=== PATIENT | female | born 1965 | race Caucasian/White ===

== ENCOUNTER 2019-02-26 19:41 | Inpatient (IN) | payer OTHER, SELFPAY ==
[2019-02-26 19:42] VITALS: BP 149/99; PULSE 60; RESP 20; TEMP 36.6; O2SAT 100
--- NOTE | 2019-02-26 21:12 | ED.VISSUMM ---
- ER Visit Summary Date of Service: 02/26/19 Chief Complaint: Fall with left hip pain History of Present Illness: The patient is a 53 F history of diabetes. Patient states she was walking down carpeted steps slipped fell injuring her left hip. Denies any other injuries. No prior hip history or surgery. Denies hitting her head. No LOC. Physical Examination: White female complaint pain vital signs are stable afebrile. H EENT exam atraumatic. Pupils round reactive light. Nontender. C-spine nontender. Trachea midline. Lungs clear to auscultation bilaterally. Heart regular rhythm no murmur. Chest wall nontender. Abdomen soft nontender. Back nontender. Pelvic girdle intact. Left hip pain on palpation. Decreased range of motion due to pain. Femur lower leg knee ankle foot nontender neurovascular intact no deformity. Normal DP pulse. Able to wiggle her toes. Normal touch sensation. Right lower extremity both upper extremities are nontender no deformity. Neurologically she is awake alert with no focal motor deficits. Test Results: Pelvis and left hip x-rays read by myself shows acute left hip fracture. Preop labs showed a normal CBC with a white count 8. Hemoglobin 14. Chemistries unremarkable normal BUN of 12 creatinine 0.9. Patient was typed and screened. Emergency Department Course and Treatment: Patient treated with IV morphine and Zofran. Fall with either hip contusion versus fracture or dislocation. Treatment Plan: I spoke with Dr. Light of orthopedics. And also Dr. Pate the hospitalist and he will admit the patient. Disposition: admission Impression: Acute fall Acute left hip fracture This note was generated with Invisible dictation software. It may contain incorrect words, spelling, and punctuation that were not noted in review of the chart prior to signing ED Disposition - Plan for ED Patient: Referrals: Felix Mccray MD [Primary Care Provider] -
[2019-02-26 21:32] VITALS: BP 163/116
[2019-02-26] MEDS: morphine 8 MG/ML Syringe IV (21:33)
[2019-02-26] MEDS: Ondansetron 4 MG/2 ML Vial IV (21:33)
--- NOTE | 2019-02-26 21:48 | RAD_ITS ---
STUDY: X-RAY - PELVIS AND LEFT HIP REASON FOR EXAM: Female, 53 years old. Fall today. Left hip pain. TECHNIQUE: views of the pelvis and hip. COMPARISON: None. FINDINGS: There is a non-specific bowel gas pattern. Normal visualized soft tissue structures. There is evidence of L5-S1 fusion. Normal bilateral iliac wings, sacroiliac joints and visualized sacrum. Normal bilateral superior and inferior pubic rami. Normal pubic symphysis. Normal bilateral ischial tuberosities. There is a intertrochanteric fracture with slight cephalad displacement of the femoral shaft. The femoral head remains in normal alignment with the acetabulum. Normal left acetabulum. There is mild articular joint space narrowing of the left hip. RAD/HIP, UNI W/ Pelvis 2-3 Views IMPRESSION: Mildly displaced intratrochanteric fracture of the left hip. Electronically Signed: Gregorio Quinn DO at 22:35 EST Tel [phone], Service support ,
[2019-02-26 22:12] LABS: Hematocrit 42.4 % (37-47); Hemoglobin 14.2 g/dL (12.0-15.0); Mean Corp Hgb Conc 33.5 g/dL (32-36); Mean Corpuscular Volume 89.6 fL (81-99); Mean Platelet Vol. 10.1 fl (6.2-12.0); Platelet Count 217 K/mm3 (150-450); RBC Distribution Width CV 12.5 % (11.6-14.6); RBC Distribution Width SD 41.3 fl (35.1-43.9); Red Blood Count 4.73 M/mm3 (4.2-5.4); White Blood Count 8.7 K/mm3 (4.4-11.0)
[2019-02-26 22:21] LABS: Anion Gap 4 (5-15); BUN 12 mg/dL (7-18); BUN/Creat Ratio 12.5 RATIO (10-20); Calcium,Total 9.4 mg/dL (8.5-10.1); Chloride 105 mmol/L (98-107); Creatinine, Serum 0.96 mg/dL (0.55-1.02); EST Glomerular Filtration Rate 65 mL/min (>60); Est Glom Filt Rate - Afr Amer 78 mL/min (>60); Estimated Creatinine Clearance 54.22 ml/min; Glucose 209 mg/dL (74-106); Potassium 3.8 mmol/L (3.5-5.1); Sodium Level 139 mmol/L (136-145)
--- NOTE | 2019-02-26 22:50 | PCM.HP.STD ---
Problem List (1) Intertrochanteric fracture of left hip Status: Acute History of Present Illness Date of Admission: 02/26/19 Chief Complaint: Fall with left hip pain The patient is a 53 year old F with a significant history of depression/anxiety; hypertension; and diabetes mellitus who presented to the emergency department after a fall. She was walking on stairs. She lost her balance and fell landing on her left hip. She reports excruciating pain in her left hip. Her pain is worsened when she moves; and her pain improved when she rests. At the emergency department radiographs showed intertrochanteric left hip fracture. Emergent department doctor discussed the case with orthopedic surgeon who will be following patient. Past Medical History Medical History: Medical History (Last Updated 02/27/19 @ 00:07 by Get Singh MD) Diabetes E11.9 Allergies Sulfa (Sulfonamide Antibiotics) Allergy (Verified 02/26/19 19:45) Rash Home Medications: Ambulatory Orders Medication Instructions Recorded Citalopram Hydrobromide 40 mg PO QHS 02/26/19 [Citalopram HBr] Glipizide 5 mg PO DAILY 02/26/19 Insulin Detemir [Levemir (BKC)] 20 units SUBCUT QHS 02/26/19 Lisinopril [Zestril] 2.5 mg PO QHS 02/26/19 Metformin HCl 500 mg PO BID 02/26/19 Pravastatin Sodium 10 mg PO QHS 02/26/19 Surgical History: - - 3 C-sections; breast reduction; laparoscopic surgery to clean fallopian tubes because of endometriosis. Lives: With Family Smoking Status: Current every day smoker Tobacco Use: Cigarettes Review of Systems Constitutional: Denies: Chills, Fever, Weight Change HEENT: Denies: Head Aches, Sinus Congestion, Sinus Drainage Cardiovascular: Denies: Chest Pain, Palpitations Respiratory: Denies: Cough, Shortness of breath at rest, Sputum production Gastrointestinal: Denies: Abdominal Pain, Nausea, Vomiting Genitourinary: Denies: Dysuria Musculoskeletal: Reports: Joint Pain, Joint Tenderness Skin: Denies: Rash, Wounds Neurological: Denies: Numbness, Tingling, Focal weakness Psychiatric: Reports: Anxiety, Depression. Denies: Homicidal Ideations, Suicidal Ideations Hematologic/ Lymphatic: Denies: Easy Bruising, Easy Bleeding VTE Information - Inpt Only VTE Present on Admission: No VTE Mechan Device Prophylaxis: SCD's, None VTE Pharm Prophylaxis ordered?: No Patient Problems: Active and Suspected Problems (Last Updated 02/27/19 @ 00:07 by Get Singh MD) Intertrochanteric fracture of left hip (Acute) - Physical Exam Vitals/I&O's: Vital Signs Temp Pulse Resp BP Pulse Ox 97.9 F 60 20 H 163/116 H 100 02/26/19 19:42 02/26/19 19:42 02/26/19 19:42 02/26/19 21:32 02/26/19 19:42 Oxygen Delivery Method Room Air Weight: 74.5 kg Body Mass Index (BMI) 30.0 General: Alert, Oriented x3, Cooperative HEENT: Atraumatic, PERRLA, EOMI, Normocephalic Neck: Supple, No JVD, Negative Carotid Bruits Lungs: Clear to auscultation, Normal air movement Cardiovascular: Regular rate, Normal S1, Normal S2, No murmurs Abdomen: Bowel Sounds Present, Soft, Non Tender Extremities: No edema, Capillary Refill Less than 3 Seconds Skin: No rashes, No breakdown Musculoskeletal: Tenderness - Left hip Neurological: Cranial nerves II-XII grossly intact Psych/Mental Status: Normal Affect, Appropriate Laboratory Results 02/26/19 19:55: WBC 8.7, RBC 4.73, Hgb 14.2, Hct 42.4, MCV 89.6, MCH 30.0, MCHC 33.5, RDW Std Deviation 41.3, RDW Coeff of Daniella 12.5, Plt Count 217, MPV 10.1 02/26/19 19:55: Sodium 139, Potassium 3.8, Chloride 105, Carbon Dioxide 30.0, Anion Gap 4 L, BUN 12, Creatinine 0.96, Estim Creat Clear Calc 54.22, Est GFR (MDRD) Af Amer 78, Est GFR (MDRD) Non-Af 65, BUN/Creatinine Ratio 12.5, Glucose 209 H, Calcium 9.4 02/26/19 22:10: Blood Type Pending, Antibody Screen Pending Assessment/Plan All Active Problems (Last Updated 02/27/19 @ 00:07 by Get Singh MD) Intertrochanteric fracture of left hip (Acute) The patient is a 53 year old F with a significant history of depression/anxiety; hypertension; and diabetes mellitus who presented to the emergency department after a fall landing on her left hip and found to have radiographic evidence of intertrochanteric left hip fracture. Intertrochanteric left hip fracture. PRN morphine for pain. Bowel protocol and antiemetics in the setting of starting patient on narcotics. Keep n.p.o. after midnight for possible surgery. Gentle IV hydration. Consult orthopedic surgeon. Diabetes mellitus De-escalate home basal insulin. Hold home metformin and glipizide. Accu-Chek every 6 hours with correction scale insulin ordered. Hyperlipidemia Pravastatin continued Depression/anxiety Citalopram continued DVT prophylaxis SCD ordered. Code Visit Inpatient E&M: 79719 Init Hosp L3
[2019-02-26 23:18] VITALS: BMI 26.5
[2019-02-27] VITALS (18 sets, daily range): BP systolic 99–153; BP diastolic 64–92; PULSE 68–97; RESP 16–18; TEMP 36.6–37.2; O2SAT 89–99; BMI 26.5
[2019-02-27] LABS: Bedside Glucose 261 mg/dL (70-110)
[2019-02-27] MEDS: Insulin Lispro 100 UNIT/ML INSULN.PEN SC ×4 (00:02→18:44)
[2019-02-27] MEDS: 0.9% Normal Saline 1,000 ML 75 ML IV ×2 (00:04→13:13)
[2019-02-27] MEDS: Morphine 2 MG/ML Syringe IV ×3 (00:22→08:00)
[2019-02-27 05:17] LABS: Absolute Lymphocyte Count 2.49 X10^3/uL (0.83-4.51); Absolute Neutrophil Count 8.4 X10^3/uL (2.0-7.7); Basophil# 0.04 X10^3/uL; Basophil% 0.3 % (0-1); Eosinophil# 0.13 X10^3/uL; Eosinophils% 1.1 % (0-5); Hematocrit 37.3 % (37-47); Hemoglobin 12.4 g/dL (12.0-15.0); Lymphocyte # 2.49 X10^3/ul (4.0); Lymphocyte % 21.1 % (19-41); Mean Corp Hgb Conc 33.2 g/dL (32-36); Mean Corpuscular Hgb 29.7 pg (27.0-32.0); Mean Corpuscular Volume 89.2 fL (81-99); Mean Platelet Vol. 9.5 fl (6.2-12.0); Monocyte# 0.72 X10^3/uL; Monocyte% 6.1 % (0-10); NRBC Flagged by Analyzer 0 % (0-5); Neutrophil # 8.35 X10^3/uL (2.7-7.7); Platelet Count 173 K/mm3 (150-450); RBC Distribution Width CV 12.6 % (11.6-14.6); RBC Distribution Width SD 41.4 fl (35.1-43.9); Red Blood Count 4.18 M/mm3 (4.2-5.4); White Blood Count 11.8 K/mm3 (4.4-11.0)
[2019-02-27 05:33] LABS: Anion Gap 3 (5-15); BUN 13 mg/dL (7-18); BUN/Creat Ratio 15.7 RATIO (10-20); Calcium,Total 8.9 mg/dL (8.5-10.1); Chloride 106 mmol/L (98-107); Creatinine, Serum 0.83 mg/dL (0.55-1.02); EST Glomerular Filtration Rate 77 mL/min (>60); Est Glom Filt Rate - Afr Amer 93 mL/min (>60); Estimated Creatinine Clearance 62.71 ml/min; Glucose 217 mg/dL (74-106); Sodium Level 138 mmol/L (136-145)
[2019-02-27 06:55] LABS: Bedside Glucose 171 mg/dL (70-110)
--- NOTE | 2019-02-27 07:27 | RAD_ITS ---
STUDY: X-RAY - LEFT FEMUR REASON FOR STUDY: Female, 53 years old. HIP FX. PT IN TRACTION. IMAGES TAKEN IS TECHNIQUE: 2 view(s) of the femur. COMPARISON: None. FINDINGS: Comminuted left intertrochanteric fracture with angulation. Soft tissue swelling. RAD/Femur Min 2 Views IMPRESSION: Comminuted left intertrochanteric fracture. Electronically Signed: Chris Marsh, at 12:23 EST , Service support ,
--- NOTE | 2019-02-27 07:50 | EKG12_ITS ---
Test Reason : PREOP Blood Pressure : / mmHG Vent. Rate : 073 BPM Atrial Rate : 073 BPM P-R Int : 174 ms QRS Dur : 076 ms QT Int : 436 ms P-R-T Axes : 026 -20 004 degrees QTc Int : 480 ms Normal sinus rhythm Normal ECG When compared with ECG of 21-AUG-2016 16:42, Nonspecific T wave abnormality now evident in Anterior leads Confirmed by ELIZABETH ARAGON, BENJAMIN ([id number]), desk editor AUGUST JACINTO ([id number]) on 03/01/2019 2:56:05 PM Referred By: RM Confirmed By:TALHA JOHNSON MD
[2019-02-27] MEDS: 0.9% Saline Lock 10 ML Syringe IV ×2 (07:58→11:23)
--- NOTE | 2019-02-27 08:36 | NURSING ---
This RN called Cora in radiology and notified this AM at shift change that pt. will have ghotra's traction placed and will need ordered xrays of femur at that time. Notified that this RN will call when traction is in place. Once traction was placed per Dr order, this RN called radiology and notified of traction in place. This RN notified that all staff is busy at this time but will place note on chart and come to unit for xrays when able.
[2019-02-27 08:49] LABS: Vitamin D,25 Hydroxy 15.5 ng/mL (29.95-100.01)
[2019-02-27 08:50] LABS: Hemoglobin A1c 8.2 % (4.2-6.3)
--- NOTE | 2019-02-27 10:56 | PN_ITS ---
Patient Problems: Active and Suspected Problems (Last Updated 02/27/19 @ 00:07 by Get Singh MD) Intertrochanteric fracture of left hip (Acute) Reason for Visit: hip fxr Subjective: Still with pain, minimal relief with morphine. Vitals/I&O's: Vital Signs Temp Pulse Resp BP Pulse Ox 36.8 C 71 16 153/92 H 96 02/27/19 07:55 02/27/19 07:55 02/27/19 07:55 02/27/19 07:55 02/27/19 07:55 Oxygen Delivery Method Room Air Weight: 65.77 kg Body Mass Index (BMI) 26.5 Intake and Output for Last 24 Hours 02/25/19 02/26/19 02/27/19 23:59 23:59 23:59 Intake Total 200 / 200 Output Total 150 / 150 Balance 50 / 50 General: Alert, - - uncomfortable HEENT: Atraumatic, Normocephalic Oral: Moist Mucosa, No Gingival or Mucosal Lesions/ Ulcerations Neck: No Nodes, Trachea Midline Lungs: Clear to auscultation, Normal air movement, No rhonchi, No wheeze, No rales Cardiovascular: Regular rate, Regular Rhythm, Normal S1, Normal S2, No murmurs Abdomen: Bowel Sounds Present, Soft, Non Tender, Non-Distended, No Hepato- splenomegaly Extremities: No edema, No Calf Tenderness Psych/Mental Status: Normal Affect, Appropriate Laboratory Results 02/26/19 19:55: WBC 8.7, RBC 4.73, Hgb 14.2, Hct 42.4, MCV 89.6, MCH 30.0, MCHC 33.5, RDW Std Deviation 41.3, RDW Coeff of Daniella 12.5, Plt Count 217, MPV 10.1 02/26/19 19:55: Sodium 139, Potassium 3.8, Chloride 105, Carbon Dioxide 30.0, Anion Gap 4 L, BUN 12, Creatinine 0.96, Estim Creat Clear Calc 54.22, Est GFR (MDRD) Af Amer 78, Est GFR (MDRD) Non-Af 65, BUN/Creatinine Ratio 12.5, Glucose 209 H, Calcium 9.4 02/26/19 19:55: Vitamin D 25-Hydroxy 15.5 L 02/26/19 22:10: Blood Type A POSITIVE, Antibody Screen NEGATIVE 02/26/19 23:54: POC Glucose 261 H 02/27/19 04:55: WBC 11.8 H, RBC 4.18 L, Hgb 12.4, Hct 37.3, MCV 89.2, MCH 29.7, MCHC 33.2, RDW Std Deviation 41.4, RDW Coeff of Daniella 12.6, Plt Count 173, MPV 9.5, Immature Gran % (Auto) 0.400, Neut % (Auto) 71.0 H, Lymph % (Auto) 21.1, Hall % (Auto) 6.1, Eos % (Auto) 1.1, Baso % (Auto) 0.3, Absolute Neuts (auto) 8.4 H, Absolute Lymphs (auto) 2.49, Nucleated RBC % 0 02/27/19 04:55: Sodium 138, Potassium 4.0, Chloride 106, Carbon Dioxide 29.0, Anion Gap 3 L, BUN 13, Creatinine 0.83, Estim Creat Clear Calc 62.71, Est GFR (MDRD) Af Amer 93, Est GFR (MDRD) Non-Af 77, BUN/Creatinine Ratio 15.7, Glucose 217 H, Calcium 8.9 02/27/19 04:55: Hemoglobin A1c 8.2 H 02/27/19 06:38: POC Glucose 171 H Current Medications Acetaminophen (Tylenol) 650 mg PO Q6H PRN PRN PRN Reason: Pain Score 1-10/Temp > 100.7 F Citalopram Hydrobromide (Celexa) 40 mg PO DAILY [facility] Glucagon () 1 mg IM .X1 PRN PRN Reason: Hypoglycemia Sodium Chloride () 1,000 mls @ 75 mls/hr IV .[id number] [facility] Last Admin: 02/27/19 00:04 Dose: 75 mls/hr Documented by: Dextrose (Dextrose 10%-Water) 250 mls @ 999 mls/hr IV .Q16M PRN; Protocol PRN Reason: HYPOGLYCEMIA Insulin Glargine (Lantus (Bk)) 14 units SC QHS [facility] Insulin Human Lispro (Humalog Kwikpen ([facility])) 0 unit SC Q6 JOHANA; Protocol Last Admin: 02/27/19 06:39 Dose: 1 u Documented by: Lisinopril (Zestril) 2.5 mg PO DAILY [facility] Melatonin (Melatonin) 3 mg PO QHS PRN PRN PRN Reason: INSOMNIA Morphine Sulfate () 4 mg IV Q2H PRN PRN PRN Reason: Pain Score 6-10/10 Morphine Sulfate () 2 mg IV Q2H PRN PRN PRN Reason: pain 4-5/10 Ondansetron HCl (Zofran) 4 mg IV Q8H PRN PRN PRN Reason: NAUSEA/VOMITING Pravastatin Sodium (Pravachol) 10 mg PO QHS [facility] Senna/Docusate Sodium (Senokot-S, Sonya-Colace) 2 tablet PO BID PRN PRN PRN Reason: Constipation Sodium Chloride () 10 - 40 ml IV UD PRN PRN Reason: SALINE FLUSH Last Admin: 02/27/19 07:58 Dose: 10 ml Documented by: STROKE Vital Signs/Narrative: Vital Signs Temp Pulse Resp BP Pulse Ox 02/27/19 07:55 36.8 C 71 16 153/92 H 96 Medical Necessity - Tobacco Use Smoking Status: Current every day smoker Tobacco Use: Cigarettes Assessment/Plan All Active Problems (Last Updated 02/27/19 @ 00:07 by Get Singh MD) Intertrochanteric fracture of left hip (Acute) 1. Left hip fracture * s/p fall * surgery today 2. Vitamin D deficiency * 25 OH D is 15.5 * start ergocalciferol 3. VTE proph * start chemical proph post surgery * SCDs for now Code Visit Inpatient E&M: 81393 Subs Hosp L2
[2019-02-27] MEDS: Morphine 4 MG/ML Syringe IV (11:24)
[2019-02-27 11:40] LABS: Bedside Glucose 211 mg/dL (70-110)
--- NOTE | 2019-02-27 11:45 | CASEMGMT ---
RN CM MELT ROOM OPERATOR CM to room to meet with patient for initial transition planning/care coordination assessment. PASTORA ROWE introduced self and role at [facility]. Pt voices understanding and consents to assessment at this time. Pt resting in bed in no distress at this time. @ bedside. Pt is A/O at this time and answers all questions appropriately. Care providers, pharmacy, and demographics verified at this time. PCP: Dr Mccray Specialists: none Preferred Pharmacy: [facility] Insurance: [facility] Prescription Benefit: Yes Living Will/HPOA: States does not have LW or HCPOA . Interested in more information but states does not want to talk with SW at this time to complete paperwork. Provided information on advanced directives and given Social Service rac card with number to call if chooses in the future to utilize [facility] social work for advanced directive completion. LNOK: , Pedro. 3 children: Ages 19, 16, 11 Living Arrangements: Lives with her and 3 children in 2-story home. Bedroom is on 2nd floor, but can re-arrange things to be FFSU if needed. Pt independent prior to fall/fracture. Pt's mother also lives with her and pt is her primary caregiver. Pt has 2 sisters that help to take care of her mother. Transportation: Pt drove prior to fall. drives and they deny transportation concerns. DME: States has/uses the following DME: [employer]. (Has a cane, shower chair, and 2 W/C's available if needed, but does not use these). Pt will need a walker @ discharge. Given list of local DME companies and 1st choice is [employer]. HHC/SNF: No history of either. Will need PT/OT evals after surgery. Pt wishes to return home at discharge. CM to follow for discharge planning/needs. Advised pt/ to ask for CM if any questions/concerns/needs arise. They voice understanding. PLAN: Anticipate Home with OP therapy. Follow PT/OT evals. Will need script for Walker. Pt prefers [employer]. Judith BSN PASTORA ROWE
[2019-02-27] MEDS: Cefazolin 2 GM in 0.9% Normal Saline 100 ML IV (14:38)
--- NOTE | 2019-02-27 14:45 | RAD_ITS ---
STUDY: X-RAY - PELVIS AND LEFT HIP REASON FOR EXAM: Female, 53 years old. LEFT HIP TROCHANTERIC FIXATION NAIL TECHNIQUE: 3 intraoperative views of the pelvis and hip. COMPARISON: Comparison is made with prior study dated August 27, 2019. FINDINGS: Open reduction internal fixation of the left intertrochanteric fracture utilizing intramedullary erendira fixation device and side screw. Satisfactory reduction. RAD/Hip Min 2 Views (Portable) IMPRESSION: Satisfactory reduction of the left intertrochanteric fracture. Electronically Signed: Chris Marsh, at 15:56 EST , Service support ,
[2019-02-27] MEDS: Bupiv/Epi 0.5% Mpf 30 ML Vial (15:53)
--- NOTE | 2019-02-27 16:12 | PCM.CONS.GEN ---
Reason for Consult Date of Consultation: 02/27/19 Reason for Consultation: Left hip fracture History of Present Illness: The patient is a 53 year old F hold down a few steps at home injuring her left hip x-rays in emergency room demonstrated the aforementioned fracture patient was admitted to the hospitalist service denies any other joint pain or other injury denies loss of consciousness Past Medical History Medical History: Medical History (Last Updated 02/27/19 @ 00:07 by Get Singh MD) Diabetes E11.9 Allergies Sulfa (Sulfonamide Antibiotics) Allergy (Verified 02/26/19 19:45) Rash Home Medications: Ambulatory Orders Medication Instructions Recorded Citalopram Hydrobromide 40 mg PO QHS 02/26/19 [Citalopram HBr] Glipizide 5 mg PO DAILY 02/26/19 Insulin Detemir [Levemir (BKC)] 20 units SUBCUT QHS 02/26/19 Lisinopril [Zestril] 2.5 mg PO QHS 02/26/19 Metformin HCl 500 mg PO BID 02/26/19 Pravastatin Sodium 10 mg PO QHS 02/26/19 Surgical History: - - 3 C-sections; breast reduction; laparoscopic surgery to clean fallopian tubes because of endometriosis. Lives: With Family Smoking Status: Current every day smoker Tobacco Use: Cigarettes Patient Problems: Active and Suspected Problems (Last Updated 02/27/19 @ 00:07 by Get Singh MD) Intertrochanteric fracture of left hip (Acute) Subjective: Pain in left hip denies other injuries or pain Objective: X-rays demonstrated a displaced angulated comminuted intertrochanteric left hip fracture - Physical Exam Vitals/I&O's: Vital Signs Temp Pulse Resp BP Pulse Ox 98.6 F 68 16 130/83 H 98 02/27/19 13:29 02/27/19 13:29 02/27/19 13:29 02/27/19 13:29 02/27/19 13:29 Oxygen Flow Rate (L/min) 2 Oxygen Delivery Method Nasal Cannula Weight: 144 lb 15.968 oz Body Mass Index (BMI) 26.5 Intake and Output for Last 24 Hours 02/25/19 02/26/19 02/27/19 23:59 23:59 23:59 Intake Total 1296.25 / 1296.25 Output Total 550 / 550 Balance 746.25 / 746.25 General: Alert, Oriented x3, Cooperative, No apparent distress, - - at bedside Extremities: - - She is able to wiggle her toes but does have weakness with ankle dorsiflexion intact sensation to light touch palpable pedal pulses and compartments are soft no open lesions around the hip no joint effusion around knee nontender anywhere else in the lower extremity Laboratory Results 02/26/19 19:55: WBC 8.7, RBC 4.73, Hgb 14.2, Hct 42.4, MCV 89.6, MCH 30.0, MCHC 33.5, RDW Std Deviation 41.3, RDW Coeff of Daniella 12.5, Plt Count 217, MPV 10.1 02/26/19 19:55: Sodium 139, Potassium 3.8, Chloride 105, Carbon Dioxide 30.0, Anion Gap 4 L, BUN 12, Creatinine 0.96, Estim Creat Clear Calc 54.22, Est GFR (MDRD) Af Amer 78, Est GFR (MDRD) Non-Af 65, BUN/Creatinine Ratio 12.5, Glucose 209 H, Calcium 9.4 02/26/19 19:55: Vitamin D 25-Hydroxy 15.5 L 02/26/19 22:10: Blood Type A POSITIVE, Antibody Screen NEGATIVE 02/26/19 23:54: POC Glucose 261 H 02/27/19 04:55: WBC 11.8 H, RBC 4.18 L, Hgb 12.4, Hct 37.3, MCV 89.2, MCH 29.7, MCHC 33.2, RDW Std Deviation 41.4, RDW Coeff of Daniella 12.6, Plt Count 173, MPV 9.5, Immature Gran % (Auto) 0.400, Neut % (Auto) 71.0 H, Lymph % (Auto) 21.1, Clinch % (Auto) 6.1, Eos % (Auto) 1.1, Baso % (Auto) 0.3, Absolute Neuts (auto) 8.4 H, Absolute Lymphs (auto) 2.49, Nucleated RBC % 0 02/27/19 04:55: Sodium 138, Potassium 4.0, Chloride 106, Carbon Dioxide 29.0, Anion Gap 3 L, BUN 13, Creatinine 0.83, Estim Creat Clear Calc 62.71, Est GFR (MDRD) Af Amer 93, Est GFR (MDRD) Non-Af 77, BUN/Creatinine Ratio 15.7, Glucose 217 H, Calcium 8.9 02/27/19 04:55: Hemoglobin A1c 8.2 H 02/27/19 06:38: POC Glucose 171 H 02/27/19 11:21: POC Glucose 211 H Current Medications Acetaminophen (Tylenol) 1,000 mg PO Q8 [facility] Apixaban (Eliquis) 2.5 mg PO BID [facility] Ergocalciferol (Vitamin D) 50,000 unit PO Q7D [facility] Glucagon () 1 mg IM .X1 PRN PRN Reason: Hypoglycemia Hydromorphone HCl (Dilaudid Inj) 0.5 mg IV Q2H PRN PRN PRN Reason: Pain Score 6-10/10 Sodium Chloride () 1,000 mls @ 75 mls/hr IV .[id number] [facility] Last Admin: 02/27/19 13:13 Dose: 75 mls/hr Documented by: Dextrose (Dextrose 10%-Water) 250 mls @ 999 mls/hr IV .Q16M PRN; Protocol PRN Reason: HYPOGLYCEMIA Cefazolin Sodium () 1 gm in 50 mls @ 100 mls/hr IV Q8 [facility] Insulin Glargine (Lantus (Bkc)) 14 units SC QHS [facility] Insulin Human Lispro (Humalog Kwikpen (Bkc)) 0 unit SC Q6 [facility]; Protocol Last Admin: 02/27/19 11:22 Dose: 2 u Documented by: Lisinopril (Zestril) 2.5 mg PO DAILY [facility] Melatonin (Melatonin) 3 mg PO QHS PRN PRN PRN Reason: INSOMNIA Morphine Sulfate () 4 mg IV Q2H PRN PRN PRN Reason: Pain Score 6-10/10 Last Admin: 02/27/19 11:24 Dose: 4 mg Documented by: Morphine Sulfate () 2 mg IV Q2H PRN PRN PRN Reason: pain 4-5/10 Ondansetron HCl (Zofran) 4 mg IV Q6H PRN PRN PRN Reason: NAUSEA Oxycodone HCl (Oxyir) 5 - 10 mg PO Q4H PRN PRN PRN Reason: Pain Score 4-10/10 Pravastatin Sodium (Pravachol) 10 mg PO QHS [facility]OH[facility] Senna/Docusate Sodium (Senokot-S, Sonya-Colace) 2 tablet PO BID PRN PRN PRN Reason: Constipation Sodium Chloride () 10 - 40 ml IV UD PRN PRN Reason: SALINE FLUSH Last Admin: 02/27/19 11:23 Dose: 10 ml Documented by: Assessment/Plan All Active Problems (Last Updated 02/27/19 @ 00:07 by Get Singh MD) Intertrochanteric fracture of left hip (Acute) Plan for trochanteric femoral nail This benefits and alternatives reviewed with patient and family consent signed
--- NOTE | 2019-02-27 16:14 | OP.PCM_ITS ---
Report of Operation Date of Procedure: 02/27/19 Description of Surgical Findings:: Preoperative diagnosis: Left hip intertrochanteric femur fracture with peritrochanteric comminution Postoperative diagnosis: Same Procedure: Cephalo-medullary fixation left hip Implants: Synthes long nail 12 x 340, [85 mm helical blade, 36 mm distal screw Anesthesia: General EBL: 50 Complications: None Condition: Stable to PACU Indication for procedure: 53-year-old female patient sustaining a fall down the stairs during left hip without other injury. fracture demonstrated comminuted intertrochanteric hip fracture with displacement, risk benefits and alternatives were reviewed including risk of bleeding infection nerve, artery, bone, tissue damage, blood clot, RSD need for further surgery and continued pain. Procedure: Patient met in the preoperative holding area once again the operative extremity was identified by both patient and physician and was marked. Patient was met by anesthesia and IV was started she was brought back to the to the operating room anesthesia was started. She was then positioned on the fracture table all bony prominences were well-padded. She was then positioned with adduction internal rotation and traction and fluoroscopy was brought in to ensure that an adequate reduction could be performed. Patient was then prepped and draped in usual sterile fashion and timeout was called to ensure the proper patient procedure and extremity were being contemplated. Fluoroscopy was used to dawood the tip of the greater trochanter and a 3 fingerbreadth incision was made 2 finger breaths proximal to the tip of the greater trochanter. Was carried carried down through the skin and subcutaneous tissue as well as the gluteal fascia. A guide pin was then inserted through the tip of the greater trochanter directed towards the level of lesser trochanter this was checked in both AP and lateral projections. An opening reamer was performed. A guide pin was bent and placed down the femoral canal to the level of the superior patella then measured this and placed the corresponding length nail after flexible reamers were used to achieve cortical chatter and achieving 1.5 mm greater than the nail was chosen . following this was the insertion of the nail the appropriate height jig was used and a triple trocar sleeve was advanced to the skin and a stab incision was made at the trocar was inserted to the level of the bone and a guidepin was placed into the femoral neck and head checked on both AP and lateral projections. This was then measured and appropriately sized helical blade was inserted the nail was locked proximally to allow dynamic compression, the fracture was compressed and a locking screw was placed distally using perfect [place] technique. This was then drilled and measured under fluoroscopy and the appropriate size screw was inserted. Final AP and lateral projections were saved to the PACS system of the entire construct. the wounds were thoroughly irrigated the fascia was closed with #1 [id number] Vicryls followed by 2-0 Vicryl in the subcutaneous tissues followed by john in the skin. 0.5% Marcaine with epinephrine was injected into the subcutaneous tissues dressing was applied form of Xeroform 4 x 4 ABD and Ioban tape. Patient tolerated procedure well there is no intraoperative complications she was brought back to the PACU in stable condition.
[2019-02-27 16:35] LABS: Bedside Glucose 232 mg/dL (70-110)
[2019-02-27] MEDS: Cefazolin 1 GM/50 ML BAG IV (18:45)
[2019-02-27 18:56] LABS: Bedside Glucose 239 mg/dL (70-110)
[2019-02-27] MEDS: oxyCODONE 5 MG Tablet PO (20:43)
[2019-02-27] MEDS: Pravastatin 20 MG Tablet 10 MG PO (22:03)
[2019-02-27] MEDS: Acetaminophen 500 MG Tablet 1000 MG PO (22:03)
[2019-02-27 22:16] LABS: Bedside Glucose 225 mg/dL (70-110)
[2019-02-28] VITALS (8 sets, daily range): BP systolic 88–135; BP diastolic 62–80; PULSE 70–91; RESP 14–16; TEMP 36.8–37.4; O2SAT 2–100
[2019-02-28] MEDS: Insulin Lispro 100 UNIT/ML INSULN.PEN SC ×4 (00:39→21:45)
[2019-02-28] MEDS: 0.9% Normal Saline 1,000 ML 75 ML IV (00:41)
[2019-02-28] MEDS: oxyCODONE 5 MG Tablet PO ×5 (00:45→21:44)
[2019-02-28] MEDS: Cefazolin 1 GM/50 ML BAG IV ×2 (00:45→12:08)
[2019-02-28] MEDS: Acetaminophen 500 MG Tablet 1000 MG PO ×3 (05:26→21:43)
[2019-02-28] MEDS: APIXABAN 2.5 MG TABLET PO ×2 (05:26→21:44)
[2019-02-28 05:31] LABS: Bedside Glucose 173 mg/dL (70-110)
[2019-02-28 05:31] LABS: Hematocrit 28.7 % (37-47); Hemoglobin 9.6 g/dL (12.0-15.0); Mean Corp Hgb Conc 33.4 g/dL (32-36); Mean Corpuscular Hgb 30.6 pg (27.0-32.0); Mean Corpuscular Volume 91.4 fL (81-99); Mean Platelet Vol. 9.3 fl (6.2-12.0); Platelet Count 128 K/mm3 (150-450); RBC Distribution Width CV 12.9 % (11.6-14.6); RBC Distribution Width SD 42.7 fl (35.1-43.9); Red Blood Count 3.14 M/mm3 (4.2-5.4); White Blood Count 11.8 K/mm3 (4.4-11.0)
[2019-02-28 05:55] LABS: Anion Gap 4 (5-15); BUN 9 mg/dL (7-18); Calcium,Total 7.8 mg/dL (8.5-10.1); Chloride 110 mmol/L (98-107); Creatinine, Serum 0.75 mg/dL (0.55-1.02); EST Glomerular Filtration Rate 87 mL/min (>60); Est Glom Filt Rate - Afr Amer 105 mL/min (>60); Glucose 177 mg/dL (74-106); Potassium 3.9 mmol/L (3.5-5.1); Sodium Level 140 mmol/L (136-145)
--- NOTE | 2019-02-28 07:41 | PN.ORTHO_ITS ---
Patient Problems: Active and Suspected Problems (Last Updated 02/27/19 @ 00:07 by Get Singh MD) Intertrochanteric fracture of left hip (Acute) Subjective: Pain controlled doing well denies fevers chills nausea vomiting shortness of breath chest pain - Physical Exam Vitals/I&O's: Vital Signs Temp Pulse Resp BP Pulse Ox 99.0 F 77 16 104/67 99 02/28/19 05:21 02/28/19 05:21 02/28/19 05:21 02/28/19 05:21 02/28/19 05:21 Oxygen Flow Rate (L/min) 2 Oxygen Delivery Method Nasal Cannula Weight: 144 lb 15.968 oz Body Mass Index (BMI) 26.5 Finger Stick Blood Glucose 232 Intake and Output for Last 24 Hours 02/26/19 02/27/19 02/28/19 23:59 23:59 23:59 Intake Total 1963.75 / 2263.75 1052.50 / 1052.50 Output Total 700 / 1025 575 / 575 Balance 1263.75 / 1238.75 477.50 / 477.50 General: Alert, Oriented x3, Cooperative, No apparent distress Extremities: - - Dressings clean dry and intact compartment soft neurovascular intact child tibialis anterior gastrocsoleus intact sensation light touch palpable pedal pulses Laboratory Results 02/26/19 19:55: Vitamin D 25-Hydroxy 15.5 L 02/27/19 04:55: Hemoglobin A1c 8.2 H 02/27/19 11:21: POC Glucose 211 H 02/27/19 16:29: POC Glucose 232 H 02/27/19 18:28: POC Glucose 239 H 02/27/19 22:05: POC Glucose 225 H 02/28/19 05:12: WBC 11.8 H, RBC 3.14 L, Hgb 9.6 L, Hct 28.7 L, MCV 91.4, MCH 30.6, MCHC 33.4, RDW Std Deviation 42.7, RDW Coeff of Daniella 12.9, Plt Count 128 L, MPV 9.3 02/28/19 05:12: Sodium 140, Potassium 3.9, Chloride 110 H, Carbon Dioxide 26.0, Anion Gap 4 L, BUN 9, Creatinine 0.75, Estim Creat Clear Calc 69.40, Est GFR (MDRD) Af Amer 105, Est GFR (MDRD) Non-Af 87, BUN/Creatinine Ratio 12.0, Glucose 177 H, Calcium 7.8 L 02/28/19 05:25: POC Glucose 173 H Current Medications Acetaminophen (Tylenol) 1,000 mg PO Q8 [facility] Last Admin: 02/28/19 05:26 Dose: 1,000 mg Documented by: Apixaban (Eliquis) 2.5 mg PO BID [facility] Last Admin: 02/28/19 05:26 Dose: 2.5 mg Documented by: Ergocalciferol (Vitamin D) 50,000 unit PO Q7D [facility] Last Admin: 02/27/19 18:44 Dose: 50,000 unit Documented by: Glucagon () 1 mg IM .X1 PRN PRN Reason: Hypoglycemia Hydromorphone HCl (Dilaudid Inj) 0.5 mg IV Q2H PRN PRN PRN Reason: Pain Score 6-10/10 Sodium Chloride () 1,000 mls @ 75 mls/hr IV .[id number] [facility] Last Admin: 02/28/19 00:41 Dose: 75 mls/hr Documented by: Dextrose (Dextrose 10%-Water) 250 mls @ 999 mls/hr IV .Q16M PRN; Protocol PRN Reason: HYPOGLYCEMIA Cefazolin Sodium () 1 gm in 50 mls @ 100 mls/hr IV Q8H [facility] Stop: 02/28/19 09:59 Last Infusion: 02/28/19 01:34 Dose: Infused Documented by: Insulin Glargine (Lantus (Bkc)) 14 units SC QHS [facility] Last Admin: 02/27/19 22:05 Dose: 14 u Documented by: Insulin Human Lispro (Humalog Kwikpen (Bk)) 0 unit SC Q6 [facility]; Protocol Last Admin: 02/28/19 05:26 Dose: 1 u Documented by: Lisinopril (Zestril) 2.5 mg PO DAILY [facility] Last Admin: 02/27/19 17:42 Dose: Not Given Documented by: Melatonin (Melatonin) 3 mg PO QHS PRN PRN PRN Reason: INSOMNIA Ondansetron HCl (Zofran) 4 mg IV Q6H PRN PRN PRN Reason: NAUSEA Oxycodone HCl (Oxyir) 5 - 10 mg PO Q4H PRN PRN PRN Reason: Pain Score 4-10/10 Last Admin: 02/28/19 05:29 Dose: 10 mg Documented by: Pravastatin Sodium (Pravachol) 10 mg PO QHS [facility] Last Admin: 02/27/19 22:03 Dose: 10 mg Documented by: Senna/Docusate Sodium (Senokot-S, Sonya-Colace) 2 tablet PO BID PRN PRN PRN Reason: Constipation Sodium Chloride () 10 - 40 ml IV UD PRN PRN Reason: SALINE FLUSH Last Admin: 02/27/19 11:23 Dose: 10 ml Documented by: Medical Necessity - Tobacco Use Smoking Status: Current every day smoker Tobacco Use: Cigarettes Assessment/Plan All Active Problems (Last Updated 02/27/19 @ 00:07 by Get Singh MD) Intertrochanteric fracture of left hip (Acute) PT OT weightbearing as tolerated Eliquis 2.5 mg twice daily for 3 weeks post hospital discharge Oxycodone and Tylenol DC home okay from orthopedic standpoint start outpatient PT Follow-up in the office 2 weeks for staple removal and wound check call if any concerns Dressing to be removed 72 hours postop and then begin showering daily with warm water and antibacterial soap but do not submerge in pool or tub for 3 weeks. Replace with light bandage over incisions and medical tape after 72 hours
--- NOTE | 2019-02-28 09:38 | PN_ITS ---
Patient Problems: Active and Suspected Problems (Last Updated 02/27/19 @ 00:07 by Get Singh MD) Intertrochanteric fracture of left hip (Acute) Reason for Visit: hip fxr Subjective: Feels better. Was up working with therapy today. Walked in her room. When she got back to her chair, she was very tired and SOB. Vitals/I&O's: Vital Signs Temp Pulse Resp BP Pulse Ox 37.2 C 88 14 88/65 L 88 02/28/19 08:00 02/28/19 08:00 02/28/19 08:00 02/28/19 08:00 02/28/19 08:00 Oxygen Flow Rate (L/min) 2 Oxygen Delivery Method Room Air Weight: 65.77 kg Body Mass Index (BMI) 26.5 Finger Stick Blood Glucose 232 Intake and Output for Last 24 Hours 02/26/19 02/27/19 02/28/19 23:59 23:59 23:59 Intake Total 1963.75 / 2263.75 1052.50 / 1052.50 Output Total 700 / 1025 575 / 575 Balance 1263.75 / 1238.75 477.50 / 477.50 General: Alert, No apparent distress HEENT: Atraumatic, Normocephalic Oral: Moist Mucosa, No Gingival or Mucosal Lesions/ Ulcerations Neck: No Nodes, Trachea Midline Lungs: Normal air movement, - - crackles LLL, that cleared with deep respiratio ns. Cardiovascular: Regular rate, Regular Rhythm, Normal S1, Normal S2, No murmurs Abdomen: Bowel Sounds Present, Soft, Non Tender, Non-Distended, No Hepato- splenomegaly Extremities: No edema, No Calf Tenderness Skin: No rashes, No breakdown Psych/Mental Status: Normal Affect, Appropriate Laboratory Results 02/27/19 11:21: POC Glucose 211 H 02/27/19 16:29: POC Glucose 232 H 02/27/19 18:28: POC Glucose 239 H 02/27/19 22:05: POC Glucose 225 H 02/28/19 05:12: WBC 11.8 H, RBC 3.14 L, Hgb 9.6 L, Hct 28.7 L, MCV 91.4, MCH 30.6, MCHC 33.4, RDW Std Deviation 42.7, RDW Coeff of Daniella 12.9, Plt Count 128 L, MPV 9.3 02/28/19 05:12: Sodium 140, Potassium 3.9, Chloride 110 H, Carbon Dioxide 26.0, Anion Gap 4 L, BUN 9, Creatinine 0.75, Estim Creat Clear Calc 69.40, Est GFR (MDRD) Af Amer 105, Est GFR (MDRD) Non-Af 87, BUN/Creatinine Ratio 12.0, Glucose 177 H, Calcium 7.8 L 02/28/19 05:25: POC Glucose 173 H Current Medications Acetaminophen (Tylenol) 1,000 mg PO Q8 [facility] Last Admin: 02/28/19 05:26 Dose: 1,000 mg Documented by: Apixaban (Eliquis) 2.5 mg PO BID [facility] Last Admin: 02/28/19 05:26 Dose: 2.5 mg Documented by: Ergocalciferol (Vitamin D) 50,000 unit PO Q7D [facility] Last Admin: 02/27/19 18:44 Dose: 50,000 unit Documented by: Glucagon () 1 mg IM .X1 PRN PRN Reason: Hypoglycemia Dextrose (Dextrose 10%-Water) 250 mls @ 999 mls/hr IV .Q16M PRN; Protocol PRN Reason: HYPOGLYCEMIA Cefazolin Sodium () 1 gm in 50 mls @ 100 mls/hr IV Q8H [facility] Stop: 02/28/19 09:59 Last Infusion: 02/28/19 01:34 Dose: Infused Documented by: Insulin Glargine (Lantus (Bkc)) 14 units SC QHS [facility] Last Admin: 02/27/19 22:05 Dose: 14 u Documented by: Insulin Human Lispro (Humalog Kwikpen (Bk)) 0 unit SC Q6 [facility]; Protocol Last Admin: 02/28/19 05:26 Dose: 1 u Documented by: Lisinopril (Zestril) 2.5 mg PO DAILY [facility] Last Admin: 02/27/19 17:42 Dose: Not Given Documented by: Melatonin (Melatonin) 3 mg PO QHS PRN PRN PRN Reason: INSOMNIA Ondansetron HCl (Zofran) 4 mg IV Q6H PRN PRN PRN Reason: NAUSEA Oxycodone HCl (Oxyir) 5 - 10 mg PO Q4H PRN PRN PRN Reason: Pain Score 4-10/10 Last Admin: 02/28/19 05:29 Dose: 10 mg Documented by: Pravastatin Sodium (Pravachol) 10 mg PO QHS [facility] Last Admin: 02/27/19 22:03 Dose: 10 mg Documented by: Senna/Docusate Sodium (Senokot-S, Sonya-Colace) 2 tablet PO BID PRN PRN PRN Reason: Constipation Sodium Chloride () 10 - 40 ml IV UD PRN PRN Reason: SALINE FLUSH Last Admin: 02/27/19 11:23 Dose: 10 ml Documented by: STROKE Vital Signs/Narrative: Vital Signs Temp Pulse Resp BP Pulse Ox 02/28/19 08:00 37.2 C 88 14 88/65 L 88 Medical Necessity - Tobacco Use Smoking Status: Current every day smoker Tobacco Use: Cigarettes Assessment/Plan All Active Problems (Last Updated 02/27/19 @ 00:07 by Get Singh MD) Intertrochanteric fracture of left hip (Acute) 1. Left hip fracture * s/p fall * s/p Cephalo-medullary fixation left hip with Synthes long nail 12 x 340, [85 mm helical blade, 36 mm distal screw] on 02/27 * Per ortho: WBAT. Follow-up in the office 2 weeks for staple removal and wound check call if any concerns. Dressing to be removed 72 hours postop and then begin showering daily with warm water and antibacterial soap but do not submerge in pool or tub for 3 weeks. Replace with light bandage over incisions and medical tape after 72 hours 2. Hypoxia and hypotension * [place] score is 8 for intermediate probability for PE * check CTA chest * Will give IVF 3. Vitamin D deficiency * 25 OH D is 15.5 * start ergocalciferol 4. VTE proph * started on apixaban today * SCDs for now DW patient and her . Code Visit Inpatient E&M: 74457 Subs Hosp L2
--- NOTE | 2019-02-28 09:48 | CT_ITS ---
STUDY: CTA CHEST REASON FOR EXAM: Female, 53 years old. HYPOXIA, SOB AFTER PHYSICAL THERAPY, HIP SURGERY YESTERDAY RADIATION DOSAGE (If Supplied By Facility): CTDIvol = ( 9.42 ) mGy, DLP = ( 402.39 ) mGycm TECHNIQUE: The examination was performed with the intravenous administration of IV 100mL Isovue-370. Post-processing of the angiographic images was performed, with multiplanar reformation and 3D reconstruction. Individualized dose optimization techniques were used for this CT. COMPARISON: None. FINDINGS: Normal enhancement of the main pulmonary artery and right and left pulmonary arteries. Normal enhancement of the bilateral peripheral pulmonary arteries. There is no demonstrated pulmonary embolism. Normal thoracic aorta and visualized great vessels. There is no demonstrated aortic dissection. Normal heart and pericardium. Normal mediastinum. Normal hilar regions. Normal visualized trachea and bronchi. The lungs are well expanded. Mild degree of increased markings at the right lung base suggestive of linear atelectasis. Normal pleura. Normal chest wall structures. There are degenerative changes of thoracic spine. There is a 1.8 cm x 1.5 cm cyst in the upper pole of the right kidney. Fatty infiltration of the liver. Small hiatal hernia. CT/CTA Chest W/WO Contrast IMPRESSION: Findings suggest a mild linear atelectasis at the right lung base. Electronically Signed: Chris Marsh, at 11:12 EST , Service support ,
[2019-02-28] MEDS: 0.9% Saline Lock 10 ML Syringe IV ×3 (10:04→21:44)
[2019-02-28 13:31] LABS: Bedside Glucose 225 mg/dL (70-110)
[2019-02-28 16:56] LABS: Bedside Glucose 147 mg/dL (70-110)
[2019-02-28] MEDS: Senna/Docusate Sodium 1 Tablet 2 TABLET PO (21:44)
[2019-02-28] MEDS: Pravastatin 20 MG Tablet 10 MG PO (21:44)
[2019-02-28 22:56] LABS: Bedside Glucose 203 mg/dL (70-110)
[2019-03-01 03:49] VITALS: BP 93/61; PULSE 83; RESP 16; TEMP 37.3; O2SAT 96
[2019-03-01] MEDS: oxyCODONE 5 MG Tablet PO (03:56)
[2019-03-01 05:35] LABS: Hematocrit 25.1 % (37-47); Hemoglobin 8.2 g/dL (12.0-15.0); Mean Corp Hgb Conc 32.7 g/dL (32-36); Mean Corpuscular Hgb 29.6 pg (27.0-32.0); Mean Corpuscular Volume 90.6 fL (81-99); Mean Platelet Vol. 9.5 fl (6.2-12.0); Platelet Count 110 K/mm3 (150-450); RBC Distribution Width CV 12.5 % (11.6-14.6); RBC Distribution Width SD 41.5 fl (35.1-43.9); Red Blood Count 2.77 M/mm3 (4.2-5.4); White Blood Count 8.9 K/mm3 (4.4-11.0)
[2019-03-01] MEDS: Acetaminophen 500 MG Tablet 1000 MG PO (06:30)
[2019-03-01] MEDS: Insulin Lispro 100 UNIT/ML INSULN.PEN SC (06:30)
[2019-03-01 06:51] LABS: Bedside Glucose 164 mg/dL (70-110)
[2019-03-01 09:15] VITALS: BP 106/70; PULSE 74; RESP 14; TEMP 37.1; O2SAT 94
--- NOTE | 2019-03-01 09:22 | DCINST_ITS ---
- Discharge Diagnoses Current Active Problems: Current Active and Chronic Problems (Last Updated 02/27/19 @ 00:07 by Get Singh MD) Intertrochanteric fracture of left hip (Acute) You will use the following diet at home:: No restrictions Your food should be the consistency of: Regular Your liquids should be the consistency of: Regular/Thin Weight Bearing Status: Weight bearing as tolerated Keep extremity elevated above heart level: Left Leg Call your doctor if your incision/area has: Continuous Slow Oozing, Sudden Increased Bleeding, Increased Pain/ Swelling, Increased Redness Call your doctor if you observe: Fever of 101 or Higher, Shortness of breath Additional Instructions: Dressing to be removed 72 hours postop and then begin showering daily with warm water and antibacterial soap but do not submerge in pool or tub for 3 weeks. Replace with light bandage over incisions and medical tape after 72 hours Allergies/Adverse Reactions: Allergies Sulfa (Sulfonamide Antibiotics) Allergy (Verified 02/26/19 19:45) Rash Medications to take at Discharge Citalopram Hydrobromide [Citalopram HBr] 40 mg PO QHS 02/26/19 Glipizide 5 mg PO DAILY 02/26/19 Insulin Detemir [Levemir FlexPen] 20 units SUBCUT QHS 02/26/19 Lisinopril [Zestril] 2.5 mg PO QHS 02/26/19 Metformin HCl 500 mg PO BID 02/26/19 Pravastatin Sodium 10 mg PO QHS 02/26/19 Acetaminophen [Tylenol] 1,000 mg PO Q8 #100 tab 02/28/19 Apixaban [Eliquis] 2.5 mg PO BID #42 tab 02/28/19 Oxycodone [Oxyir] 5 - 10 mg PO Q4H PRN PRN #60 tab 02/28/19 Ergocalciferol [Vitamin D] 50,000 unit PO Q7D #7 cap 03/01/19 The following prescriptions were given: Apixaban [Eliquis] 2.5 mg PO BID #42 tab Transmission Status: Received by [id number] Oxycodone [Oxyir] 5 - 10 mg PO Q4H PRN PRN #60 tab PRN Reason: Pain Score 4-10/10 Transmission Status: Received by [id number] Acetaminophen [Tylenol] 1,000 mg PO Q8 #100 tab Transmission Status: Received by [id number] Orders to be completed after discharge: Physical Therapy Evaluation Location: None Selected Primary Care Physician: Felix Mccray MD [Primary Care Provider] - Within 2 Weeks Test Results: Test results from this visit will be discussed in further detail at your follow- up appointment, if applicable. Please Follow Up With: [facility] When: Monday Please Follow Up With: Get Kim DO Proposed Discharge Date: 03/01/19
[2019-03-01] MEDS: APIXABAN 2.5 MG TABLET PO (09:23)
[2019-03-01] MEDS: Lisinopril 2.5 MG Tablet PO (09:23)
--- NOTE | 2019-03-01 09:27 | DS.PCM_ITS ---
Discharge Date and Diagnosis - Problem List Patient Problems: Active and Suspected Problems (Last Updated 02/27/19 @ 00:07 by Get Singh MD) Intertrochanteric fracture of left hip (Acute) Date of Admission: 02/26/19 Date of Discharge: 03/01/19 - Primary Discharge Diagnosis Active and Suspected Problems (Last Updated 02/27/19 @ 00:07 by Get Singh MD) Intertrochanteric fracture of left hip (Acute) Vitamin D deficiency Hospital Course and Treatment Imaging Results: Clinical Impression(s) from Imaging Studies Hip/Pelvis X-Ray 02/26/19 21:48 IMPRESSION: Mildly displaced intratrochanteric fracture of the left hip. Electronically Signed: Gregorio Quinn DO at 22:35 EST Tel [phone], Service support , Femur X-Ray 02/27/19 07:27 IMPRESSION: Comminuted left intertrochanteric fracture. Electronically Signed: Chris Marsh, at 12:23 EST , Service support , Hip X-Ray 02/27/19 14:45 IMPRESSION: Satisfactory reduction of the left intertrochanteric fracture. Electronically Signed: Chris Marsh, at 15:56 EST , Service support , Chest CTA 02/28/19 09:48 IMPRESSION: Findings suggest a mild linear atelectasis at the right lung base. Electronically Signed: Chris Marsh, at 11:12 EST , Service support , [facility] Operations: - - Cephalo-medullary fixation left hip Implants: Synthes long nail 12 x 340, [85 mm helical blade, 36 mm distal screw Procedures: None Summary of Care Provided: The patient is a 53 year old F presents with a fall. Patient was walking on stairs lost her balance and fell landing on her left hip. Patient had excruciating pain. Patient was brought to the hospital and had an x-ray that showed a intertrochanteric left hip fracture. Patient was mobilized and orthopedics was consulted. On the , patient underwent a cephalo-medullary fixation of the left hip with a long nail measuring 12 x 340. Patient was having some shortness of breath and fatigue and was hypoxic so patient underwent a CT angiogram of the chest. That did not show a pulmonary embolism. Patient will be discharged home today and patient will have outpatient physical therapy. Patient will be on apixaban 2.5 mg twice daily for 3 weeks. Patient did have a low 25-hydroxy vitamin D level of 15.5. Patient has been started on ergocalciferol 50,000 units weekly. Patient just received her first dose on the . Patient will have 7 more doses. Afterwards, patient will need to have her 25-hydroxy vitamin D level checked and if still continues to be low, which would be less than 50, to initiate cholecalciferol 2000 units daily. [] Patient Problems: Active and Suspected Problems (Last Updated 02/27/19 @ 00:07 by Get Singh MD) Intertrochanteric fracture of left hip (Acute) Subjective: still with some pain in her left hip. - Physical Exam Vitals/I&O's: Vital Signs Temp Pulse Resp BP Pulse Ox 37.1 C 74 14 106/70 94 03/01/19 09:15 03/01/19 09:15 03/01/19 09:15 03/01/19 09:15 03/01/19 09:15 Oxygen Flow Rate (L/min) 1 Oxygen Delivery Method Room Air Weight: 65.77 kg Body Mass Index (BMI) 26.5 Finger Stick Blood Glucose 232 Intake and Output for Last 24 Hours 02/27/19 02/28/19 03/01/19 23:59 23:59 23:59 Intake Total 1963.75 / 2263.75 2830.00 / 2830.00 500 / 500 Output Total 700 / 1025 5 / 2024 600 / 600 Balance 1263.75 / 1238.75 805.00 / 805.00 -100 / -100 General: Alert, Cooperative, No apparent distress HEENT: Atraumatic, Normocephalic Oral: Moist Mucosa, No Gingival or Mucosal Lesions/ Ulcerations Laboratory Results 02/28/19 12:06: POC Glucose 225 H 02/28/19 16:53: POC Glucose 147 H 02/28/19 21:43: POC Glucose 203 H 03/01/19 05:15: WBC 8.9, RBC 2.77 L, Hgb 8.2 L, Hct 25.1 L, MCV 90.6, MCH 29.6, MCHC 32.7, RDW Std Deviation 41.5, RDW Coeff of Daniella 12.5, Plt Count 110 L, MPV 9.5 03/01/19 06:29: POC Glucose 164 H Current Medications Acetaminophen (Tylenol) 1,000 mg PO Q8 [facility] Last Admin: 03/01/19 06:30 Dose: 1,000 mg Documented by: Apixaban (Eliquis) 2.5 mg PO BID [facility] Last Admin: 03/01/19 09:23 Dose: 2.5 mg Documented by: Ergocalciferol (Vitamin D) 50,000 unit PO Q7D [facility] Last Admin: 02/27/19 18:44 Dose: 50,000 unit Documented by: Glucagon () 1 mg IM .X1 PRN PRN Reason: Hypoglycemia Dextrose (Dextrose 10%-Water) 250 mls @ 999 mls/hr IV .Q16M PRN; Protocol PRN Reason: HYPOGLYCEMIA Insulin Glargine (Lantus (Bk)) 14 units SC QHS [facility] Last Admin: 02/28/19 21:45 Dose: 14 u Documented by: Insulin Human Lispro (Humalog Kwikpen (Bk)) 0 unit SC ACHS [facility]; Protocol Last Admin: 03/01/19 06:30 Dose: 1 u Documented by: Lisinopril (Zestril) 2.5 mg PO DAILY [facility] Last Admin: 03/01/19 09:23 Dose: 2.5 mg Documented by: Melatonin (Melatonin) 3 mg PO QHS PRN PRN PRN Reason: INSOMNIA Ondansetron HCl (Zofran) 4 mg IV Q6H PRN PRN PRN Reason: NAUSEA Oxycodone HCl (Oxyir) 5 - 10 mg PO Q4H PRN PRN PRN Reason: Pain Score 4-10/10 Last Admin: 03/01/19 03:56 Dose: 10 mg Documented by: Pravastatin Sodium (Pravachol) 10 mg PO QHS JOHANA Last Admin: 02/28/19 21:44 Dose: 10 mg Documented by: Senna/Docusate Sodium (Senokot-S, Sonya-Colace) 2 tablet PO BID PRN PRN PRN Reason: Constipation Last Admin: 02/28/19 21:44 Dose: 2 tablet Documented by: Sodium Chloride () 10 - 40 ml IV UD PRN PRN Reason: SALINE FLUSH Last Admin: 02/28/19 21:44 Dose: 10 ml Documented by: Discharge Diet: No Restrictions Weight Bearing Status: Weight bearing as tolerated Keep extremity elevated above heart level: Left Leg Call your doctor if your incision/area has: Continuous Slow Oozing, Sudden Increased Bleeding, Increased Pain/ Swelling, Increased Redness Call your doctor if you observe: Fever of 101 or Higher, Shortness of breath Home Medications: Medications to take at Discharge Citalopram Hydrobromide [Citalopram HBr] 40 mg PO QHS 02/26/19 Glipizide 5 mg PO DAILY 02/26/19 Insulin Detemir [Levemir FlexPen] 20 units SUBCUT QHS 02/26/19 Lisinopril [Zestril] 2.5 mg PO QHS 02/26/19 Metformin HCl 500 mg PO BID 02/26/19 Pravastatin Sodium 10 mg PO QHS 02/26/19 Acetaminophen [Tylenol] 1,000 mg PO Q8 #100 tab 02/28/19 Apixaban [Eliquis] 2.5 mg PO BID #42 tab 02/28/19 Oxycodone [Oxyir] 5 - 10 mg PO Q4H PRN PRN #60 tab 02/28/19 Ergocalciferol [Vitamin D] 50,000 unit PO Q7D #7 cap 03/01/19 Following Prescrptions Were Given to Patient: Apixaban [Eliquis] 2.5 mg PO BID #42 tab Transmission Status: Received by [id number] Oxycodone [Oxyir] 5 - 10 mg PO Q4H PRN PRN #60 tab PRN Reason: Pain Score 4-10/10 Transmission Status: Received by [id number] Acetaminophen [Tylenol] 1,000 mg PO Q8 #100 tab Transmission Status: Received by [id number] Ergocalciferol [Vitamin D] 50,000 unit PO Q7D #7 cap Transmission Status: Pending to [id number] Other Amb Orders: Physical Therapy Evaluation Location: None Selected Primary Care Physician: Felix Mccray MD [Primary Care Provider] - Within 2 Weeks Please Follow Up With: Prevoty When: Monday Please Follow Up With: Get Kim DO Disposition: Home Minutes spent on discharge:: 35 Patient Condition:: Good Medical Necessity - Tobacco Use Smoking Status: Current every day smoker Tobacco Use: Cigarettes Meaningful Use Info Meaningful Use Diagnoses (Choose all that apply): None applicable Code Visit Inpatient E&M: 23451 Disch Hosp
--- NOTE | 2019-03-01 09:33 | CASEMGMT ---
PASTORA ROWE updated that patient will be discharging today. PASTORA ROWE in to discuss discharge plans. Patient to discharge home with outpatient therapy at [facility]. Patient would like CM to schedule therapy appt. Patient will also need FWW. Script received and patient prefers [facility]. PASTORA ROWE called [facility] and scheduled first appt for Saturday 03/04 1030am. Referral sent to [facility] and arranged for walker to be delivered to patient's room.
--- NOTE | 2019-03-04 14:02 | CASEMGMT ---
[facility] PHONE CALL DC DATE: 03.01.2019 DC Disposition: Home Diagnosis on Discharge: Intertrochanteric fracture of L hip with ORIF LACE/STRATA: 12/09 Attempted call. No answer and no message machine. Darien CAROLINA RN AC
== END 2019-03-01 10:46 | disposition home or self-care (01) | DRG 482 ==
LOC: ED 20:51 → MS3 23:57
PROVIDERS: Anesthesiology; Orthopaedic Surgery; Admitting Provider Hospitalist; Emergency Provider Emergency Medicine; PCP Family Medicine
PROC: 0QH706Z Insertion of Intramedullary Internal Fixation Device into Left Upper Femur, Open Approach (ICD-10-PCS; principal; 2019-02-27 14:00)
DX: S72.142A Displaced intertrochanteric fracture of left femur, initial encounter for closed fracture (principal); W10.9XXA Fall (on) (from) unspecified stairs and steps, initial encounter; Y93.01 Activity, walking, marching and hiking; Y92.008 Other place in unspecified non-institutional (private) residence as the place of occurrence of the external cause; E55.9 Vitamin D deficiency, unspecified; R09.02 Hypoxemia; R06.02 Shortness of breath; I10 Essential (primary) hypertension; E11.9 Type 2 diabetes mellitus without complications; F32.9 Major depressive disorder, single episode, unspecified; F41.9 Anxiety disorder, unspecified; E78.5 Hyperlipidemia, unspecified; F17.210 Nicotine dependence, cigarettes, uncomplicated; Z79.4 Long term (current) use of insulin; Z79.84 Long term (current) use of oral hypoglycemic drugs
CPT/HCPCS: 36415; 71275; 73502; 73552; 76000; 80048; 82306; 82962; 83036; 85025; 85027; 86850; 86900; 86901; 93005; 97161; 97166; 99251; 99284; C1713; J7030; Q9967; A4216; G0463; J2405

== ENCOUNTER → 2019-03-08 10:32 | Outpatient (CLI) | payer OTHER, SELFPAY ==
[2019-03-08 10:21] VITALS: BMI 26.5
--- NOTE | 2019-03-08 10:32 | RAD_ITS ---
STUDY: X-RAY - LEFT FEMUR REASON FOR STUDY: Female, 53 years old. Severe pain. TECHNIQUE: AP and lateral view(s) of the femur. COMPARISON: None. FINDINGS: The patient is status post left hip pinning with long intramedullary erendira extending to the distal femoral shaft securing intertrochanteric fracture. Skin john are seen. There is no demonstrated fracture or destructive process. RAD/Femur Min 2 Views IMPRESSION: Postoperative changes. No demonstrated acute osseous changes. Electronically Signed: Marco A Vargas MD at 10:41 EST Tel , Service support ,
--- NOTE | 2019-03-08 10:35 | RAD_ITS ---
STUDY: X-RAY - PELVIS AND LEFT HIP REASON FOR EXAM: Female, 53 years old. 10 DAYS POST OP, SEVERE PAIN TECHNIQUE: 3 views of the pelvis and hip. COMPARISON: Preoperative exam of 02/26/2019. FINDINGS: There is a non-specific bowel gas pattern. There are skin john. There are pedicle screws fusing the lower lumbar spine. Normal bilateral iliac wings, sacroiliac joints and visualized sacrum. Normal bilateral superior and inferior pubic rami. Normal pubic symphysis. Normal bilateral ischial tuberosities. The patient is status post left hip pinning with long intramedullary securing intertrochanteric fracture of the right hip. Normal acetabulum. Normal hip joint. RAD/HIP, UNI W/ Pelvis 2-3 Views IMPRESSION: Postoperative changes. No demonstrated acute osseous changes. Electronically Signed: Marco A Vargas MD at 10:55 EST Tel , Service support ,
== END ==
PROVIDERS: PCP Family Medicine; Referring Provider Orthopaedic Surgery; Visit Provider Orthopaedic Surgery
DX: S72.142A Displaced intertrochanteric fracture of left femur, initial encounter for closed fracture (principal)
CPT/HCPCS: 73502; 73552

== ENCOUNTER 2019-03-08 12:03 | Emergency (ER) | payer OTHER, SELFPAY ==
[2019-03-08 10:21] VITALS: BMI 26.5
[2019-03-08 12:04] VITALS: BP 128/77; PULSE 69; RESP 18; TEMP 37.2; O2SAT 98; BMI 28.8
--- NOTE | 2019-03-08 12:17 | EKG12_ITS ---
Test Reason : SOB Blood Pressure : / mmHG Vent. Rate : 067 BPM Atrial Rate : 067 BPM P-R Int : 154 ms QRS Dur : 078 ms QT Int : 452 ms P-R-T Axes : 032 -14 -01 degrees QTc Int : 477 ms Normal sinus rhythm Nonspecific T-wave Abnormality Confirmed by LAURA ARAGON, ORVILLE ([id number]), web editor AUGUST JACINTO ([id number]) on 03/11/2019 3:28:04 PM Referred By: CARL Confirmed By:ORVILLE SANCHEZ MD
--- NOTE | 2019-03-08 12:18 | VDLE_ITS ---
Reason For Study: Swelling Procedure LEFT Exam performed portable in ED. GSV is normal. A preliminary report was called and/or faxed CFV is compressible, spontaneous, phasic, to [place]. competent, and demonstrates normal augmentation. FV is compressible, spontaneous, phasic, competent and demonstrates normal augmentation. POP V is compressible, spontaneous, phasic, competent and demonstrates normal augmentation. T/P Trunk is compressible. PTV is compressible. LT PerV is compressible. Interpretation Summary There is no evidence of left lower extremity deep vein thrombosis. Left great saphenous vein appears patent and compressible segmentally. Ordering Physician: Mike Borrero Referring Physician: MD Shazia Felix Performed By: Katharine Nielsen RVT
--- NOTE | 2019-03-08 12:19 | ED.DCSUM_ITS ---
- ER Visit Summary Date of Service: 03/08/19 Chief Complaint: Left leg discomfort and swelling status post left hip fracture History of Present Illness: The patient is a 53 F history of insulin-dependent diabetes. Patient had a recent fall left hip fracture for which she was hospitalized here and had hip fracture repair surgery by orthopedics. She is been doing well but last several days she is noticed more swelling in her left lower extremity. She is currently on Eliquis. She was sent in to be evaluated for possible DVT. She denies any chest pain. Lying in bed she denies any shortness of breath lying in bed. She is never had a DVT or PE. She denies any melena. She denies any significant cough. Physical Examination: Middle-aged female no acute distress vital signs stable afebrile. Pulse ox 90% on room air no signs of hypoxia. H EENT exam unremarkable. Neck nontender no JVD. Lungs clear to auscultation bilaterally. Heart regular rhythm no murmur. Rate about 70. Abdomen soft nontender normal bowel sounds no peritoneal signs. Extremities moves all 4. Neurovascular intact. Very well-healing left hip surgical incision. Dry and clean. No redness. No warmth. No discharge. Left lower extremity from the knee to the foot does have 1+ pitting edema. Foot is neurovascularly intact able to wiggle her toes, touch sensation and pulse. Neurologically she is awake and alert. No focal motor deficits. Test Results: Venous noninvasive study left lower extremity shows no DVT per the clinical quality assurance specialist. CBC shows improving postoperative anemia. White count 8. Hemoglobin 8.81-week ago was 8.2. BMP shows unremarkable normal creatinine and gap. Sodium 133. Emergency Department Course and Treatment: Swelling left lower extremity after hip surgery and hospitalization. Concern is for DVT. She is reportedly on Eliquis currently. On repeat exam at 1329 patient is doing well. We went over all of her test results. She will be discharged to home. Strongly encouraged to ice the leg as much as possible decrease swelling. Follow-up with your doctor. Return if feeling worse. Continue her current medications including the blood thinner. Treatment Plan: Continue her current medications and follow-up. Disposition: Discharge Impression: Acute left lower extremity edema status post left hip fracture with orthopedic repair Anticoagulated on Eliquis This note was generated with [employer] software. It may contain incorrect words, spelling, and punctuation that were not noted in review of the chart prior to signing ED Disposition - Plan for ED Patient: Referrals: Felix Mccray MD [Primary Care Provider] -
[2019-03-08 12:38] LABS: Hemoglobin 8.8 g/dL (12.0-15.0); Mean Corp Hgb Conc 32.6 g/dL (32-36); Mean Corpuscular Hgb 30.1 pg (27.0-32.0); Mean Corpuscular Volume 92.5 fL (81-99); Mean Platelet Vol. 9.2 fl (6.2-12.0); Platelet Count 382 K/mm3 (150-450); RBC Distribution Width CV 14.5 % (11.6-14.6); RBC Distribution Width SD 46.5 fl (35.1-43.9); Red Blood Count 2.92 M/mm3 (4.2-5.4); White Blood Count 8.8 K/mm3 (4.4-11.0)
[2019-03-08] MEDS: morphine 8 MG/ML Syringe 6 MG IV (12:40)
[2019-03-08] MEDS: Ondansetron 4 MG/2 ML Vial IV (12:41)
[2019-03-08 12:51] LABS: BUN 12 mg/dL (7-18); Creatinine, Serum 0.84 mg/dL (0.55-1.02); Estimated Creatinine Clearance 61.96 ml/min; Glucose 237 mg/dL (74-106)
[2019-03-08 12:52] LABS: Anion Gap 5 (5-15); BUN/Creat Ratio 14.3 RATIO (10-20); Calcium,Total 9.7 mg/dL (8.5-10.1); Chloride 101 mmol/L (98-107); EST Glomerular Filtration Rate 76 mL/min (>60); Est Glom Filt Rate - Afr Amer 92 mL/min (>60); Potassium 3.5 mmol/L (3.5-5.1); Sodium Level 133 mmol/L (136-145)
--- NOTE | 2019-03-08 13:33 | ED.DEP ---
ED Disposition - Plan for ED Patient: Disposition: Home or Assisted Living Referrals: Felix Mccray MD [Primary Care Provider] - As Needed Get Kim DO [STAFF PHYSICIAN] - As Needed Additional Instructions: No blood clot in your left leg. Continue your current medications including your blood thinner. Elevate your left leg as much as possible to decrease the swelling. Follow-up with your orthopedic doctor as scheduled needed.
[2019-03-08 13:48] VITALS: BP 128/74; PULSE 78; RESP 18; O2SAT 99
== END 2019-03-08 14:02 | disposition home or self-care (01) ==
PROVIDERS: Emergency Provider Emergency Medicine; PCP Family Medicine
DX: R60.0 Localized edema (principal); D62 Acute posthemorrhagic anemia; Z87.81 Personal history of (healed) traumatic fracture; E11.9 Type 2 diabetes mellitus without complications; Z79.4 Long term (current) use of insulin; Z79.84 Long term (current) use of oral hypoglycemic drugs; Z79.01 Long term (current) use of anticoagulants; Z72.0 Tobacco use
CPT/HCPCS: 80048; 85027; 93005; 93971; 96374; 96375; 99285; A4216; J2405

== ENCOUNTER 2019-04-16 14:00 | Outpatient (RCR) | payer OTHER, SELFPAY ==
[2019-02-27 13:29] VITALS: BMI 26.5
--- NOTE | 2019-03-04 13:02 | HP.PTEVAL_ITS ---
Patient's Visit Information RUSTY SINGH is a 53 year old F referred to Physical Therapy by Get Kim DO with a diagnosis of L hip fracture. Date of Evaluation: 03/04/19 Physical Therapist: Yakov Dahl PT, ATC - Visit Plan Frequency: 2-3x /Week Duration: 6 Weeks Plan: L LE stretching and strengthening, balance and prorio, core strengthening, nustep, and HEP - Subjective Findings: DOS: 02/27/19. pt reports she fell down 4 stairs home and landed on her L hip which resulted in a L hip Fracture. Pt reports she had surgery consisting of a erendira and a plate. Pt reports she was in the hospital for 3 days and then went home. Pt reports she did ambulate with a wheeled walker while in the hospital. Pt reports she was given no restrictions while in the hospital. Pt reports she is in severe pain as she forgot to take her pain meds this date. Pt reports no tingling or numbness in L LE. Pt reports sleep difficulty ast this time as she can sleep for 2 hour increments. Pt reports she was I with all [employer] priot to this fall. 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 - Pain L hip Pain Intensity (Out of 10): 10 - Objective Neuro: B LE sensation is WNL to light touch. ROM: L LE is severely limited with all planes. MMT: L hip is rated at 1/5 at this time. Gait: Pt is able to transfer sit to stand I. Pt can ambulate with WW approximately 5 feet until needing to sit down seconda;ry to weakness. - Goals Goal 1:: Decrease L hip pain x 50% to aid with sleep Goal Time Frame: 6-8 Weeks Goal 2:: Increase L hip ROM to equal R hip to aid with IADL's Goal Time Frame: 6-8 Weeks Goal 3:: Increase L hip strength x 1 grade to aid with stair negotiation Goal Time Frame: 6-8 Weeks Goal 4:: I with HEP Goal Time Frame: 6-8 Weeks - Rehabilitation Potential Physical Therapy Diagnosis: Pt has L LE weakness, pain, and limited ROM secondary to L hip fracture Rehabilitation Potential: Good - Anticipated Interventions Patient/Client Instruction: Educate patient on: Condition, Plan of Care For the Purpose of:: To improve self management Therapeutic Exercise to Include: Strength training, Endurance training, Balance training, Gait and locomotor training, Active ROM, Dynamic Lumbar Stabilization For the Purpose of:: To decrease pain, To increase ROM, To improve muscle performance and motor function Cryotherapy (ice pack, ice massage): Yes For the Purpose of:: To decrease pain Thank you for the opportunity to evaluate your patient. For Medicare and Medicare HMO plans, please review the plan of care and approve it. It will need to be FAXED BACK to us at [phone] for Medicare purposes. For Medicare only, by signing this I certify the plan of care. Please let me know if there are questions or concerns regarding this plan of care. Physician Signature: Date:
--- NOTE | 2019-09-03 13:55 | HP.PT.NRP ---
RUSTY SINGH was seen in my office for initial evaluation on 03/04/19. The following Plan of Care was established for this patient: Initial Frequency: 2-3x /Week Initial Duration: 6 Weeks Patient/Client Instruction: Educate patient on: Condition, Plan of Care For the Purpose of:: To improve self management Therapeutic Exercise to Include: Strength training, Endurance training, Balance training, Gait and locomotor training, Active ROM, Dynamic Lumbar Stabilization For the Purpose of:: To decrease pain, To increase ROM, To improve muscle performance and motor function Cryotherapy (ice pack, ice massage): Yes For the Purpose of:: To decrease pain This patient was last seen in our office . Pertinent comments regarding their Physical therapy will appear below: Pt was treated for 5 PT visits for L hip pain through the date of 04/16/19. Pt has not returned through todays date and is discontinued at this time. At this point I will be discontinuing this patient from physical therapy. I would be happy to see this patient again in the future if found appropriate by the physician. Thank you! Yakov Dahl, PT, ATC
== END 2019-04-16 19:00 | disposition home or self-care (01) ==
LOC: PT 14:00
PROVIDERS: PCP Family Medicine; Referring Provider Orthopaedic Surgery; Visit Provider Orthopaedic Surgery
DX: S72.142D Displaced intertrochanteric fracture of left femur, subsequent encounter for closed fracture with routine healing (principal)
CPT/HCPCS: 97110; 97161; 97530

== ENCOUNTER 2020-10-06 17:44 | Emergency (ER) | payer MEDICAID, SELFPAY ==
[2020-10-06 17:45] VITALS: BP 123/93; PULSE 93; RESP 16; TEMP 35.9; O2SAT 99; BMI 26.5
--- NOTE | 2020-10-06 19:38 | EDS_ITS ---
HPI History of Present Illness Chief Complaint: Back Narrative Narrative: Patient presenting for a month of back pain. She states that she did not have any specific injury. She has been seen by urgent care twice and started on prednisone with first dose today. Patient states that her pain is about the same as it has been. She denies any specific injury. She states he has had a right hip x-ray as the pain radiates into the right hip on the anterior portion she was told she has sciatica. She has concerned that she has injured her back. She did not have imaging of this. She has no loss of bladder bowel control or urinary retention. She does state that she has urinary frequen cy without dysuria. Denies fever, chills. Denies history of kidney stones. No hematuria. [facility] Medical History Diabetes Home Medications citalopram 40 mg PO QHS 02/26/19 [History Last Taken 02/25/19 22:00 40 mg] glipizide 5 mg PO DAILY 02/26/19 [History Last Taken 02/26/19 08:00 5 mg] insulin detemir U-100 20 units SUBCUT QHS 02/26/19 [History Last Taken 02/25/19 22:00 20 units] lisinopril 2.5 mg PO QHS 02/26/19 [History Last Taken 02/25/19 22:00 2.5mg] metformin 500 mg PO BID 02/26/19 [History Last Taken 02/26/19 08:00 500 mg] pravastatin 10 mg PO QHS 02/26/19 [History Last Taken 02/25/19 22:00 10 mg] acetaminophen 1,000 mg PO Q8 #100 tab 02/28/19 [Rx Last Taken Unknown] ergocalciferol (vitamin D2) 50,000 unit PO Q7D #7 cap 03/01/19 [Rx Last Taken Unknown] meloxicam 15 mg tablet 15 mg PO DAILY #30 tab 04/10/19 [Rx Last Taken Unknown] Allergy/AdvReac Type Severity Reaction Status Date / Time Sulfa (Sulfonamide Allergy Rash Verified 10/06/20 17:44 Antibiotics) Surgical History History of laminectomy Social History Smoking Status: Current every day smoker tobacco type: cigarettes ROS ROS ED Constitutional Constitutional ED: Denies chills or fever(s) Eyes Eyes: Denies blurry vision or diplopia ENT ENT ED: Denies rhinorrhea Cardiovascular Cardiovascular: Denies chest pain or palpitations Respiratory/Chest Respiratory/Chest: Denies dyspnea, dyspnea on exertion or sputum Gastrointestinal Gastrointestinal: Denies abdominal pain, nausea or vomiting Genitourinary Genitourinary ED: Reports urinary frequency; Denies dysuria Musculoskeletal Musculoskeletal: Reports back pain; Denies myalgias or neck pain Integumentary Denies Abrasions or rash Neurologic Neurologic: Denies headache(s) or paresthesias EXAM Physical Exam Const Vital Signs: 10/06/20 17:45 Temperature 96.6 F L Temperature Source Temporal Pulse Rate 93 Respiratory Rate 16 Blood Pressure 123/93 H Blood Pressure Mean 103 Pulse Ox 99 Oxygen Delivery Method Room Air Positive well nourished General Appearance ED: NAD HEENT Reports moist mucous membranes Negative for trauma Eyes PERRL and EOMs intact bilaterally Resp normal respiratory effort Cardio regular rate and regular rhythm Back/Spine Back/Spine Narrative: No midline lumbar spinal tenderness, deformity, step-off. There is no right lumbar paraspinal musculature tenderness. Extremity Extremity Narrative: Tenderness to palpation anteriorly over the right ASIS however this is not exquisite. There is no ecchymosis or rash. There are no deformities. Neuro oriented x3 Sensorium / Orientation: alert Psych mental status grossly normal Skin no rashes or lesions noted and no wounds MDM MDM MDM Narrative Medical decision making narrative: Patient had x-ray of the lumbar spine which on my interpretation shows no acute fracture or subluxation. There is a pr evious posterior spinal fusion L5-S1. Radiology does read this is stable grade 2 anterior spondylolisthesis of L5 on S1. I did check a urinalysis at the patient's request and she is spilling glucose. This is slightly contaminated and not consistent with UTI. Patient at this point is stable to be discharged home. She will continue her prednisone. Is given return precautions. Impression: 1. Lumbar strain 2. Urinary frequency Lab Data Attestation: I reviewed the patient's lab results. Labs: Laboratory Results - last 24 hr 10/06/20 20:09 Urine Color Yellow Urine Clarity Clear Urine pH 6.0 Ur Specific [place] 1.015 Urine Protein 15 H Urine Glucose (UA) 1000 H Urine Ketones Negative Urine Occult Blood Negative Urine Nitrite Negative Urine Bilirubin Negative Urine Urobilinogen Normal Ur Leukocyte Esterase Negative Urine RBC 0 SEEN Urine WBC 0 SEEN Ur Squamous Epith Cells 5-10 SEEN Urine Bacteria 2+ Urine Mucus 0 SEEN Radiography Diagnostic Testing: Radiology Impression Lumbar Spine X-Ray 10/06/20 19:45 IMPRESSION: Status post posterior fusion of L5-S1 associated with a stable grade 2 anterior spondylolisthesis of L5 on S1. Electronically Signed: Nina Guevara MD at 20:16 EDT Tel , Service support , Discharge Plan Triage Chief Complaint: Back ED Provider: Zackary Petersen Dx/Rx/DC Orders Instructions: ED Back Spasm, No Trauma Prescriptions: No Action meloxicam [Mobic] 15 mg tablet 15 mg PO DAILY Qty: 30 RF: 1 metformin 500 MG tablet 500 mg PO BID RF: 0 citalopram 40 MG tablet 40 mg PO QHS RF: 0 pravastatin 10 MG tablet 10 mg PO QHS RF: 0 lisinopril 2.5 MG tablet 2.5 mg PO QHS RF: 0 glipizide 5 MG tablet 5 mg PO DAILY RF: 0 insulin detemir U-100 100 UNITS/ML insulin pen 20 units subcut QHS RF: 0 acetaminophen 500 MG tablet 1,000 mg PO Q8 Qty: 100 RF: 1 ergocalciferol (vitamin D2) 50,000 UNIT capsule 50,000 unit PO Q7D Qty: 7 RF: 0 Primary Care Provider: Felix Mccray Referrals: Felix Mccray MD [Primary Care Provider] - Disposition Disposition: Home, Self Care Discharge Date/Time: 10/06/20 21:29
--- NOTE | 2020-10-06 19:45 | RAD_ITS ---
STUDY: X-RAY - LUMBAR SPINE REASON FOR EXAM: Female, 54 years old. Back pain TECHNIQUE: 3 view(s) of the lumbar spine were obtained. COMPARISON: 09/21/2012 FINDINGS: There is evidence of a prior posterior fusion of L5/S1. There is a stable grade 2 anterior spondylolisthesis of L5 on S1. The vertebral body heights are preserved. There is no substantial scoliosis. The soft tissue structures are unremarkable. RAD/Lumbar Spine 2 or 3 Views IMPRESSION: Status post posterior fusion of L5-S1 associated with a stable grade 2 anterior spondylolisthesis of L5 on S1. Electronically Signed: Nina Guevara MD at 20:16 EDT Tel , Service support ,
[2020-10-06 20:15] LABS: Mucous, Urine 0 SEEN /hpf (<or=2+); Red Blood Cells-Urine 0 SEEN /hpf (0-5); White Blood Cells 0 SEEN /hpf (0-5)
[2020-10-06 20:34] LABS: Color, Urine Yellow (Yellow); Glucose, Dipstick 1000 mg/dl (Normal); Ketone-Dipstick Negative (Negative); Leukocyte Esterase-Dipstick Negative /ul (Negative); Nitrite-Dipstick Negative (Negative); Occult Blood-Urine Negative /ul (Negative); Protein-Dipstick 15 mg/dl (Negative); Specific Gravity, Urine 1.015 (1.002-1.030); Urine Bilirubin Dipstick Negative (Negative); Urine Clarity Clear (Clear); Urine Urobilinogen Normal (Normal)
[2020-10-06 20:45] LABS: Bacteria 2+ /hpf (None Seen); Squamous Epithelial Cells - UA 5-10 SEEN /hpf (5-10)
== END 2020-10-06 21:29 | disposition home or self-care (01) ==
PROVIDERS: Emergency Provider Student in an Organized Health Care Education/Training Program; PCP Family Medicine
DX: S39.012A Strain of muscle, fascia and tendon of lower back, initial encounter (principal); R35.0 Frequency of micturition; F17.210 Nicotine dependence, cigarettes, uncomplicated; X58.XXXA Exposure to other specified factors, initial encounter
CPT/HCPCS: 72100; 81001; 99282

== ENCOUNTER 2024-09-27 13:58 | Emergency (ER) | payer BC, SELFPAY ==
[2024-09-27 13:59] VITALS: BP 156/95; PULSE 87; RESP 19; TEMP 36.2; O2SAT 100; BMI 21.6
--- NOTE | 2024-09-27 15:38 | ED.VIS.CHEST ---
HPI History of Present Illness Chief Complaint: Chest Other [facility] Medical History Diabetes Home Medications ?Medication ?Instructions ?Recorded ?Last Taken ?Type citalopram 40 mg tablet 40 mg PO QHS Depression/Anxiety 02/26/19 02/25/19 22:00 History 40 mg glipizide 5 mg tablet 5 mg PO DAILY DM 02/26/19 02/26/19 08:00 History 5 mg insulin detemir U-100 100 unit/mL 20 units subcut QHS DM 02/26/19 02/25/19 22:00 History (3 mL) subcutaneous pen 20 units lisinopril 2.5 mg tablet 2.5 mg PO QHS BP 02/26/19 02/25/19 22:00 History 2.5mg metformin 500 mg tablet 500 mg PO BID DM 02/26/19 02/26/19 08:00 History 500 mg pravastatin 10 mg tablet 10 mg PO QHS Cholesterol 02/26/19 02/25/19 22:00 History 10 mg ergocalciferol (vitamin D2) 1,250 50,000 unit PO Q7D #7 caps 03/01/19 Unknown Rx mcg (50,000 unit) capsule Allergy/AdvReac Type Severity Reaction Status Date / Time Sulfa (Sulfonamide Allergy Rash Verified 09/27/24 13:58 Antibiotics) Surgical History History of laminectomy Social History Smoking Status: Current every day smoker tobacco type: cigarettes EXAM Physical Exam Const Vital Signs: 09/27/24 13:59 09/27/24 15:36 Temperature 97.2 F L Temperature Source Temporal Pulse Rate 87 Respiratory Rate 19 H Respiratory Effort Normal Non-Labored Blood Pressure 156/95 H Blood Pressure Mean 115 Pulse Ox 100 Oxygen Delivery Method Room Air MDM MDM MDM Narrative Medical decision making narrative: HISTORY OF PRESENT ILLNESS: Chief complaint: Left-sided chest pain 58-year-old female presents status post mechanical fall in the shower. Notes this occurred 4 hours ago. States she fell onto her left chest. Notes left-sided chest pain. Denies syncope. Denies head trauma loss of consciousness. Denies any vomiting. REVIEW OF SYSTEMS: Pertinent positives: Left-sided musculoskeletal chest pain Pertinent negatives: head trauma PHYSICAL EXAM: Nursing triage notes reviewed, Vital signs reviewed Constitutional: please see [facility] HENT: MMM Eyes: Pupils equal round and reactive to light, Extraocular muscles intact Neck: No stridor, no JVD, full neck ROM Lungs: Clear to auscultation, No wheezing or rales. No increased work of breathing, no conversational dyspnea, no accessory muscle use, no nasal flaring. No respiratory distress noted, no fill chest Heart: Regular rate and rhythm, No murmurs, No rubs and No gallops, 2+ distal pulses (radial, femoral, posterior tibial) in all extremities Abdomen: Soft, there is no tenderness, rigidity, rebound or guarding, no obvious peritoneal signs, no palpable pulsatile abdominal masses, no auscultated abdominal bruit : No CVAT Extremities: No edema Neuro: No new focal neurological deficits, cranial nerves II through XII intact, 5/5 strength in all present extremities. Intact sensation to light touch in all present extremities, 2+ reflexes bilateral patella tendons. Skin: No rash or lesions noted, no bruising noted to left ribs MEDICAL DECISION MAKING: Chief Complaint: please see HPI External records reviewed: Reviewed prior imaging studies Factors affecting care: Type 2 diabetes, hypertension, hyperlipidemia Social determinants of health: none History obtained from others: none Consults: none [facility] Narrative: The patient was initially hemodynamically stable, afebrile and nontoxic-appearing. Exam with bilateral breath sounds. No crepitus. No flail chest noted. I considered the following differential diagnosis: Rib contusion, rib fracture, pneumothorax I obtained chest x-ray to further determine if the patient was suffering from a life-threatening etiology. Gave Tylenol, ibuprofen and lidocaine patches ALL IMAGES (IF OBTAINED) HAVE BEEN PERSONALLY REVIEWED AND INTERPRETED BY MYSELF. X-ray of the chest with ribs was negative for rib fracture Patient likely suffered rib contusion. Given symptom spirometer and discharged with pneumonia return precaution The patient and/or family, caregivers express understanding. The patient and/or family, caregivers agrees with the plan. Shared decision making: I will have a discussion with the patient and or visitors regarding risk/benefits of further testing or admission. They will be made aware of of the risk/benefits inherent in this decision they will be given the opportunity to voice understanding. Total critical care time today provided was at least 0 minutes. This excludes separately billable procedures. Critical care time (if documented) is secondary to the patient having high probability of clinically significant/life threatening deterioration in the patient's condition which required my urgent intervention. Impression: 1. Left-sided rib contusion 2. Fall Dispo: Discharge home This note was generated with [employer] dictation software. It may contain incorrect words, spelling, and punctuation that were not noted in review of the chart prior to signing. Radiography Diagnostic Testing: Clinical Impression(s) from Imaging Studies Ribs w/Chest X-Ray 09/27/24 16:00 IMPRESSION: No acute rib fracture seen. No pneumothorax. Reading Location: [facility] Discharge Plan Triage Chief Complaint: Chest Other ED Provider: Tommy Saul Dx/Rx/DC Orders Prescriptions: No Action metformin 500 MG tablet 500 mg PO BID citalopram 40 MG tablet 40 mg PO QHS Patient Comments: TAKE 1 TABLET BY MOUTH EVERY DAY pravastatin 10 MG tablet 10 mg PO QHS Patient Comments: TAKE 1 TABLET BY MOUTH EVERY DAY lisinopril 2.5 MG tablet 2.5 mg PO QHS Patient Comments: TAKE 1 TABLET BY MOUTH EVERY DAY glipizide 5 MG tablet 5 mg PO DAILY Patient Comments: TAKE 1 TABLET BY MOUTH EVERY DAY insulin detemir U-100 100 UNITS/ML insulin pen 20 units subcut QHS ergocalciferol (vitamin D2) 50,000 UNIT capsule 50,000 unit PO Q7D Qty: 7 0RF Primary Care Provider: Felix Mccray Referrals: Felix Mccray MD [Primary Care Provider] - Print Language: Lao
[2024-09-27] MEDS: Lidocaine 5% Patch 1 PATCH TOPICAL (15:55)
--- NOTE | 2024-09-27 16:00 | RAD_ITS ---
PROCEDURE: RIBS BILATERAL MIN 3V W/PA CHEST 09/27/2024 REASON FOR EXAM: LEFT POSTERIOR CHEST PAIN TECHNIQUE: RIBS BILATERAL MIN 3V W/PA CHEST COMPARISON: None. FINDINGS: LUNGS AND PLEURA: The lungs are clear. No pleural effusion or pneumothorax. HEART AND MEDIASTINUM: The heart size and mediastinal contours are normal. BONES: No acute osseous abnormality. No evidence of acute rib fracture. RAD/Ribs Uni Min 3V w/PA Chest IMPRESSION: No acute rib fracture seen. No pneumothorax. Reading Location: [id number]
[2024-09-27 18:03] VITALS: BP 165/100; PULSE 75; RESP 16; TEMP 36.7; O2SAT 100
== END 2024-09-27 18:37 | disposition home or self-care (01) ==
PROVIDERS: Emergency Provider Emergency Medicine; PCP Family Medicine; Visit Provider Emergency Medicine
DX: S20.212A Contusion of left front wall of thorax, initial encounter (principal); E11.9 Type 2 diabetes mellitus without complications; Z79.4 Long term (current) use of insulin; W18.2XXA Fall in (into) shower or empty bathtub, initial encounter; Y93.E1 Activity, personal bathing and showering; I10 Essential (primary) hypertension; E78.5 Hyperlipidemia, unspecified; Z79.84 Long term (current) use of oral hypoglycemic drugs; F17.210 Nicotine dependence, cigarettes, uncomplicated
CPT/HCPCS: 71101; 99283

== ENCOUNTER 2024-11-01 07:09 | Observation (INO) | payer BC, SELFPAY ==
--- OUTSIDE RECORDS SUMMARY | 2024-09-16 11:13 | XMS RPT_ITS ---
Author Name Auto Generated Organization OHIP Care Team Providers Care Signal Wirer Name Role Phone MALIKA HERNANDEZ Primary Care Unavailable SATINDER WELCH Attending Unavailable MALIKA HERNANDEZ Primary Care Unavailable SATINDER WELCH Referring Unavailable MALIKA HERNANDEZ Primary Care Unavailable PROBLEMS DATE TYPE CONDITION / CODE ATTENDING STATUS [facility] 09/17/2021 Active Type 2 diabetes mellitus with diabetic polyneuropathy, with long-term current use of insulin (HCC) / E11.42(ICD-10) SATINDER WELCH Active [facility] 09/17/2021 Active Type 2 diabetes mellitus with diabetic polyneuropathy, with long-term current use of insulin (HCC) / Z79.4(ICD-10) SATINDER WELCH Active [facility] 09/23/2016 Active Anxiety / F41.9(ICD-10) SATINDER WELCH Ac tive [facility] 09/23/2016 Active Depression, unsp ecified depression type / F32.A(ICD-10) SATINDER WELCH Active [facility] 09/23/2016 Active Hyperlipidemia, mixed / E78.2(ICD-10) SATINDER WELCH Active [facility] 09/23/2016 Active Hypertension, es sential / I10(ICD-10) SATINDER WELCH Active [facility] 09/10/2024 Active Wellness examina tion / Z00.00(ICD-10) SATINDER WELCH Active [facility] 09/10/2024 Active Encounter for sc reening mammogram for breast cancer / Z12.31(ICD-10) SATINDER WELCH Active [facility] PROCEDURES No Procedure Records Found RESULTS CNPN Observed: 10/16/2024 12:00 AM Status: COMPLETED Source: [facility] Telephone (PHMEWO) ARLETTE SALGADO ([id number]) 1965 F Date Time Provider Department 10/16/24 JERRI MACEDO MEWO During your visit today, we recorded the following information about you: Jerri Macedo [facility] 10/16/2024 11:19 AM Signed Called patient for scheduled phone appt today (x4) but unable to reach or LMOM since voicemail box is not yet set up. Primary Care Pharmacy Rescheduling Outreach Call center, please contact patient and reschedule telephone visit for Diabetes management within ~4 week(s). (Visit length: 60 minutes) Thank you, Jerri Macedo [facility] 10/16/2024 11:18 AM Devonte More 10/16/2024 11:30 AM Signed Telephoned the patient regarding missed appt. Unable to leave a message. Devonte More 10/21/2024 10:47 AM Signed Telephoned the patient regarding missed appt. Unable to leave a message. Patient does not have mychart active. Second attempt. Jerri Macedo [facility] 10/28/2024 9:34 AM Signed Called patient again to reschedule missed appt. Unable to reach or LMOM, voicemail is not set up. Jerri Macedo, PharmD, [facility] Primary Care Clinical Pharmacist Keira More [facility] [place]/28/2024 10:22 AM Signed Final attempt. was made. Unable to reach pt. d/t VM is not set up. If pt. returns our call an appt. will nbe made. Pt. dos not have MyChart. Pt. discharge process is complete at this time. Nando jean [facility] as an FYI. Allergies As of Date: 10/16/2024 Noted Allergy Reaction KEFLEX (CEPHALEXIN) 08/02/2018 1 - Mental Status Change Comments: panic attacks SULFA (SULFONAMIDE ANTIBIOTICS) 07/10/2007 Date Reviewed: 09/10/2024 Reviewed by: SANDRA SCHULZ - Fully Assessed Reason for Visit: Missed Appointment [1304] Cmt: Primary care reschedule Prescriptions as of 10/28/2024 - Insulin [place], Disposable, (PEN NEEDLE) 32 gauge x 5/32 Inject 1 each subcutaneously every 24 hours. Give with each insulin administration. - insulin glargine (LANTUS SOLOSTAR U-100 INSULIN) 100 unit/mL (3 mL) Inject 10 Units subcutaneously daily at bedtime. - citalopram (CELEXA) 40 mg tablet Take 1 tablet by mouth once daily. - lisinopril 2.5 mg tablet Take 1 tablet by mouth once daily. - metFORMIN ER (GLUCOPHAGE XR) 500 mg 24 hr tablet TAKE 1 TABLETs BY MOUTH EVERY DAY WITH BREAKFAST - pravastatin (PRAVACHOL) 40 mg tablet Take 1 tablet by mouth once daily. - Blood-Glucose Sensor ([employer] G7 SENSOR) fabiola 1 each every 2 weeks. - blood sugar diagnostic (BLOOD GLUCOSE TEST) test strip Test blood sugar(s) 1 times daily. Dx: Type 2 DM - Uncontrolled E11.65 Insulin: Yes - Lancets lancets Test blood sugar(s) 1 times daily. Dx: Type 2 DM - Uncontrolled E11.65 Insulin: Yes - glipiZIDE (GLUCOTROL) 5 mg tablet Take 1 tablet (5 mg) by mouth once daily. Meds Comments as of 11/17/2016: [facility] [place] [facility] [place] Problem List As Of Date 10/16/2024 Noted Resolved Hypertension, essential [I10] 09/23/2016 Hyperlipidemia, mixed [E78.2] 09/23/2016 Depression [F32.A] 09/23/2016 Anxiety [F41.9] 09/23/2016 Diabetes mellitus type 2, uncontrolled, without*09/28/2016 Type 2 diabetes mellitus without complication, *09/17/2021 Encounter Status:Closed by JERRI MACEDO on 10/16/24 LUCILA Observed: 09/18/2024 12:00 AM Status: COMPLETED Source: [facility] Telephone (PHARMN) ARLETTE SALGADO ([id number]) 1965 F Date Time Provider Department 09/18/24 BERNA BOUCHER PHARMN During your visit today, we recorded the following information about you: Berna Boucher, PSS 09/18/2024 1:38 PM Signed Telephoned the patient to schedule a new Primary Care pharmacy appt. No message left, voicemail not set-up.. Berna Boucher, PSS 09/19/2024 1:51 PM Signed Telephoned the patient to schedule a new Primary Care pharmacy appt. No message left, voicemail not set-up.. Jerri Macedo [facility] 09/23/2024 2:10 PM Signed Called patient, scheduled her for initial PharmD visit on 10/16. Jerri Macedo PharmD, [facility] Primary Care Clinical Pharmacist Allergies As of Date: 09/18/2024 Noted Allergy Reaction KEFLEX (CEPHALEXIN) 08/02/2018 1 - Mental Status Change Comments: panic attacks SULFA (SULFONAMIDE ANTIBIOTICS) 07/10/2007 Date Reviewed: 09/10/2024 Reviewed by: SANDRA SCHULZ - Fully Assessed Reason for Visit: NEW PRIMARY CARE PHARMACY APPT [Other] Prescriptions as of 09/23/2024 - Insulin [place], Disposable, (PEN NEEDLE) 32 gauge x 5/32 Inject 1 each subcutaneously every 24 hours. Give with each insulin administration. - insulin glargine (LANTUS SOLOSTAR U-100 INSULIN) 100 unit/mL (3 mL) Inject 10 Units subcutaneously daily at bedtime. - citalopram (CELEXA) 40 mg tablet Take 1 tablet by mouth once daily. - lisinopril 2.5 mg tablet Take 1 tablet by mouth once daily. - metFORMIN ER (GLUCOPHAGE XR) 500 mg 24 hr tablet TAKE 1 TABLETs BY MOUTH EVERY DAY WITH BREAKFAST - pravastatin (PRAVACHOL) 40 mg tablet Take 1 tablet by mouth once daily. - Blood-Glucose Sensor ([employer] G7 SENSOR) fabiola 1 each every 2 weeks. - blood sugar diagnostic (BLOOD GLUCOSE TEST) test strip Test blood sugar(s) 1 times daily. Dx: Type 2 DM - Uncontrolled E11.65 Insulin: Yes - Lancets lancets Test blood sugar(s) 1 times daily. Dx: Type 2 DM - Uncontrolled E11.65 Insulin: Yes - glipiZIDE (GLUCOTROL) 5 mg tablet Take 1 tablet (5 mg) by mouth once daily. Meds Comments as of 11/17/2016: [facility] [place] [facility] [place] Problem List As Of Date 09/18/2024 Noted Resolved Hypertension, essential [I10] 09/23/2016 Hyperlipidemia, mixed [E78.2] 09/23/2016 Depression [F32.A] 09/23/2016 Anxiety [F41.9] 09/23/2016 Diabetes mellitus type 2, uncontrolled, without*09/28/2016 Type 2 diabetes mellitus without complication, *09/17/2021 Encounter Status:Closed by BERNA BOUCHER on 09/19/24 ALBUMIN/CREATININE RATIO, URINE Collect ed: 09/16/2024 11:22 AM Status: F Source: [facility] Order Comment: Specimen Type : URINE SPECIMEN Ordering Facility: [facility] Address: [address] [place] [address] TYPE CODE TESTS RESULT OUT OF RANGE REFERENCE UNITS LAB 2161-8(LOINC) Creat Ur-mCnc 96.8 20.0-300.0 m g/dL LAB 72637-0(LOINC ) Microalbumin Ur-mCnc 104.2 mg/L LAB 9318-7(LOINC) Albumin/Creat Ur 108 High <30 mg/g Result Comment: Adult Male a nd Female Nephrotic Criteria: <30 mg/g is considered normal to mildly increased 30-300 mg/g is considered moderately increased >300 mg/g is considered severely increased KDIGO. (2013). KDIGO 2012 Clinical Practice Guideline for the Evaluation and Management of Chronic Kidney Disease. Official Journal of the International Society of Nephrology, 3(1), 1-150. Performed By: #### UACR #### [facility] CLIA [id number] [address] [place] [address] [place] [address] [place] CBC W AUTO DIFF BLD Collected: 09/16/2024 11:19 AM S tatus: F Source: [facility] Order Comment: Specimen Type : BLOOD SPECIMEN Ordering Facility: [facility] Address: [address] [place] [address] TYPE CODE TESTS RESULT OUT OF RANGE REFERENCE UNITS LAB 6690-2([facility]) WBC # Bld Auto 8.98 3.70-11.00 k/uL LAB 789-8([facility]) RBC # Bld Auto 4.67 3.90-5.20 m/ uL LAB 718-7([facility]) Hgb Bld-mCnc 14.5 11.5-15.5 g/dL LAB 4544-3([facility]) Hct VFr Bld Auto 42.1 36.0-46.0 % LAB 787-2([facility]) MCV RBC Auto 90.1 80.0-100.0 fL LAB 785-6([facility]) MCH RBC Qn Auto 31.0 26.0-34.0 p g LAB 786-4([facility]) MCHC RBC Auto-mCnc 34.4 30.5-36.0 g/dL LAB 62624-1([facility]) RDW RBC-Rto 12.6 11.5-15.0 % LAB 777-3([facility]) Platelet # Bld Auto 230 150-400 k/uL LAB 44907-0([facility]) PMV Bld Auto 10.3 9.0-12.7 fL LAB 770-8([facility]) Neutrophils/leuk NFr Bld Auto 58.1 % LAB 751-8([facility]) Neutrophils # Bld Auto 5.21 1.45-7.50 k/uL LAB 736-9([facility]) Lymphocytes/leuk NFr Bld Auto 31.0 % LAB 731-0([facility]) Lymphocytes # Bld Auto 2.78 1.00-4.00 k/uL LAB 5905-5([facility]) Monocytes/leuk NFr Bld Auto 7.3 % LAB 742-7([facility]) Monocytes # Bld Auto 0.66 <0.87 k/uL LAB 713-8([facility]) Eosinophil/leuk NFr Bld Auto 2.9 % LAB 711-2([facility]) Eosinophil # Bld Auto 0.26 <0.46 k/uL LAB 706-2(LOINC) Basophils/leuk NFr Bld Auto 0.4 % LAB 704-7([facility]) Basophils # Bld Auto 0.04 <0.11 k/uL LAB 79492-9([facility]) Imm Granulocytes/michelle k NFr Bld Auto 0.3 % LAB 21490-9([facility]) Imm Granulocytes # Bld Auto 0.03 <0.10 k/uL LAB 41109-7([facility]) nRBC/100 WBC Bld-Rto 0.0 /100 WBC LAB 771-6([facility]) nRBC # Bld Auto <0.01 <0.01 k/u L LAB 82732-7([facility]) Differential method Bld Auto Performed By: #### 14247-5 # ### [facility] CLIA [id number] [address] [place] [address] [place] COMP METAB 2000 PNL SERPL Collected: 11:19 AM Status: F Source: [facility] Order Comment: Specimen Type : BLOOD SPECIMEN Ordering Facility: [facility] Address: [address] [place] [address] TYPE CODE TESTS RESULT OUT OF RANGE REFERENCE UNITS LAB 2885-2([facility]) Prot SerPl-mCnc 6.7 6.3-8.0 g/dL LAB 1751-7(INC) Albumin SerPl-mCnc 4.1 3.9-4.9 g/dL LAB 01586-0(INC) Calcium SerPl-mCnc 9.8 8.5-10.2 mg/dL LAB 1975-2(INC) Bilirub SerPl-mCnc 0.2 0.2-1.3 mg/dL LAB 6768-6([facility]) ALP SerPl-cCnc 68 34-123 U/L LAB 1920-8(LOINC) AST SerPl-cCnc 20 13-35 U/L LAB 1742-6(LOINC) ALT SerPl-cCnc 19 7-38 U/L LAB 2345-7([facility]) Glucose SerPl-mCnc 248 High 74-99 mg/dL Result Comment: The [place] Diabetes Association (ADA) provides guidance for cutoff values for fasting glucose and random glucose. The ADA defines fasting as no caloric intake for at least 8 hours. Fasting plasma glucose results between 100 to 125 mg/dL indicate increased risk for diabetes (prediabetes). Fasting plasma glucose results greater than or equal to 126 mg/dL meet the criteria for diagnosis of diabetes. In the absence of unequivocal hyperglycemia, results should be confirmed by repeat testing. In a patient with classic symptoms of hyperglycemia or hyperglycemic crisis, random plasma glucose results greater than or equal to 200 mg/dL meet the criteria for diagnosis of diabetes. Reference: Standards of Medical Care in Diabetes 2016, [place] Diabetes Association. Diabetes Care. 2016.39(Suppl 1). LAB 3094-0(LOINC) BUN SerPl-mCnc 21 7-21 mg/dL LAB 2160-0(LOINC) Creat SerPl-mCnc 0.61 0.58-0.96 mg/dL LAB 2951-2(LOINC) Sodium SerPl-sCnc 135 Low 136-144 mmol/L LAB 2823-3(LOINC) Potassium SerPl-sCnc 4.7 3.7-5.1 mmol/L LAB 2075-0(LOINC) Chloride SerPl-sCnc 100 98-107 mmol/L LAB 2027-9(LOINC) CO2 SerPl-sCnc 23 22-30 mmol/L LAB 28607-3(LOINC) Anion Gap SerPl-sCnc 12 8-15 mmol/L LAB 14645-1(LOINC) eGFRcr SerPlBld CKD-EPI 2020 104 >=60 mL/min/1. 73m??? Result Comment: Estimated Gl omerular Filtration Rate (eGFR) is calculated using the 2020 CKD-EPI creatinine equation. This equation utilizes serum creatinine, sex, and age as parameters. The creatinine assay has traceable calibration to isotope dilution-mass spectrometry. Refer to KDIGO guidelines for clinical interpretation. In patients with unstable renal function, e.g. those with acute kidney injury, the eGFR may not accurately reflect actual GFR. Performed By: #### 83826-4, 91428-3 #### [facility] CLIA [id number] [address] [place] [address] [place] LIPID 1996 PNL SERPL Collected: 025 11:19 AM Status: F [facility] Order Comment: Specimen Type : BLOOD SPECIMEN Ordering Facility: [facility] Address: [place] [address] TYPE CODE TESTS RESULT OUT OF RANGE REFERENCE UNITS LAB 3-3(LOINC) Cholest SerPl-mCnc 267 High <200 mg/dL Result Comment: <200 mg/dL, Desirable 200-239 mg/dL, Borderline high >239 mg/dL, High LAB 2571-8(LOINC) Trigl SerPl-mCnc 293 High <150 mg/dL Result Comment: <150 mg/dL, Normal 150-199 mg/dL, Borderline high 200-499 mg/dL, High >499 mg/dL, Very high LAB 2085-9(LOINC) HDLc SerPl-mCnc 50 >39 mg/dL Result Comment: 40-59 mg/dL, Acceptable >59 mg/dL, High: Negative risk factor for coronary heart disease <40 mg/dL, Low: Positive risk factor for coronary heart disease LAB 2088-1(LOINC) LDLc SerPl-mCnc 162 High <100 mg/dL Result Comment: <100 mg/dL, Optimal 100-129 mg/dL, Near optimal/above optimal 130-159 mg/dL, Borderline high 160-189 mg/dL, High >189 mg/dL, Very high Secondary prevention optimal LDL Cholesterol levels are recommended to be <70 mg/dL LDL cholesterol is calculated using the Clinton-NIH equation. LAB 72345-6(LOINC) NonHDLc SerPl-mCnc 217 High <130 mg/dL Result Comment: <130 mg/dL, Optimal 130-159 mg/dL, Near optimal/above optimal 160-189 mg/dL, Borderline high 190-219 mg/dL, High >219 mg/dL, Very high Secondary prevention optimal non HDL Cholesterol levels are recommended to be <100 mg/dL LAB 82631-9(LOINC) VLDLc SerPl Calc-mCnc 57 High <30 mg/dL LAB 9830-1(LOINC) Cholest/HDLc SerPl 5.34 High <5.10 LAB 29842-1(LOINC) LDLc/HDLc SerPl 3.24 High <2.54 Result Comment: Reference: 1. National Cholesterol Education Program ATP III Guideline At-A-Glance Quick Desk Reference: National Heart, Lung, and Blood [place]. National Institutes of Health. 2001: NIH Publication No. 01-3305. 2. An International Atherosclerosis Society position paper: global recommendations for the management of dyslipidemia: executive summary, Atherosclerosis. 2014: 232(2):410-413. LAB FT FASTING TIME 12 hrs Performed By: #### 52940-2, 98596-5 #### [facility] CLIA [id number] [address] [place] [address] DEPRECATED HGB A1C BLD Collected: 09/16 11:19 AM Status: F Source: [facility] Order Comment: Specimen Type : BLOOD SPECIMEN Ordering Facility: [facility] Address: [address] [place] [address] TYPE CODE TESTS RESULT OUT OF RANGE REFERENCE UNITS LAB 4548-4(LOINC) HbA1c MFr Bld 12.9 High 4.3-5.6 % Result Comment: [place] Linh betes Association guidelines indicate that patients with HgbA1c in the range 5.7-6.4% are at increased risk for development of diabetes, and intervention by lifestyle modification may be beneficial. HgbA1c greater or equal to 6.5% is considered diagnostic of diabetes. LAB 79623-8(LOINC) Est. average glucose Bld gHb Est-mCnc 324 mg/dL Result Comment: eAG: (Estima rod average glucose) is a calculated value from HgbA1c and is abrasives sales representative of the average blood glucose level in the last 2-3 month period. Performed By: #### 52872-6 # ### [facility] CLIA [id number] [address] [place] [address] OF [place] PROGRESS Observed: 09/10/2024 9:00 AM Status: COMPLETED Source: [facility] HNO ID: [id number] Author: SATINDER WELCH APRN.[employer] CLERK Service: ? Author Type: Nurse Practitioner Type: Progress Notes Filed: 09/10/2024 09:31 Note Text: Chief Complaint Patient presents with: Physical HPI Arlette Salgado is a 58 year old female who presents here today for physical and medication follow up. Arlette Salgado is a 58-year-old female with a history of DM, HTN, HLD, and JOVANA, presenting for worsening neuropathy and a request for lab work. rAlette reports worsening neuropathy in her hands, describing a tingling sensation in her fingertips and difficulty holding objects. She notes that the neuropathy has been progressively worsening and is now affecting her ability to perform daily tasks. She believes her blood glucose levels may be elevated and expresses a desire to resume insulin therapy. She has not been monitoring her blood glucose levels and has been off Lantus for approximately one year. She is currently taking metformin once daily, as taking it twice daily causes gastrointestinal discomfort. She is also taking lisinopril, atorvastatin, and fluoxetine 40 mg daily, which she reports is effectively managing her anxiety and depression. Arlette has not had lab work done in several years and requests a comprehensive panel, including HbA1c, CBC, CMP, and lipid profile. She also inquires about scheduling a mammogram and Pap smear. Arlette is a current smoker, consuming approximately half a pack of cigarettes per day. She denies any recent changes in her smoking habits. Past medical history, appointments, medications, allergies reviewed. 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) Hyperlipidemia Hypertension Previous Surgical History PAST SURGICAL HISTORY Procedure Laterality Date ABLATION 2010 ARTHRP ACETBLR/PROX FEM PROSTC AGRFT/ALGRFT Left BREAST REDUCTION 2003 DELIVERY ONLY 1999, 2000, 2007 PAST SURGICAL HISTORY OF 1997 Laproscopy PAST SURGICAL HISTORY OF 2013 Spinal Fusion TONSILLECTOMY HX 1978 TUBAL LIGATION HX 2008 Family History FAMILY HISTORY Problem Relation Age of Onset COPD Mother Glaucoma Mother Macular Degen Mother Osteoporosis Mother other (Paratenitis) Maternal Grandmother Cancer Maternal Grandfather Bone Alzheimer's Disease Paternal Grandmother Cancer Paternal Grandfather Stomach Patient Allergies ALLERGIES Allergen Reactions Keflex [Cephalexin] Mental Status Change panic attacks Sulfa (Sulfonamide * Current Medications Current Outpatient Medications on File Prior to Visit Medication Sig blood sugar diagnostic (BLOOD GLUCOSE TEST) test strip Test blood sugar(s) 1 times daily. Dx: Type 2 DM - Uncontrolled E11.65 Insulin: Yes Lancets lancets Test blood sugar(s) 1 times daily. Dx: Type 2 DM - Uncontrolled E11.65 Insulin: Yes pravastatin (PRAVACHOL) 40 mg tablet Take 1 tablet by mouth once daily. citalopram (CELEXA) 40 mg tablet Take 1 tablet by mouth once daily. metFORMIN ER (GLUCOPHAGE XR) 500 mg 24 hr tablet TAKE 2 TABLETS BY MOUTH EVERY DAY WITH BREAKFAST glipiZIDE (GLUCOTROL) 5 mg tablet Take 1 tablet (5 mg) by mouth once daily. lisinopril 2.5 mg tablet Take 1 tablet by mouth once daily. insulin glargine (LANTUS SOLOSTAR U-100 INSULIN) 100 unit/mL (3 mL) Inject 25 Units subcutaneously daily at bedtime. (Patient not taking: Reported on 03/27/2023) Insulin [place], Disposable, (PEN NEEDLE) 32 gauge x 5/32 Inject 1 Each subcutaneously every 24 hours. Give with each insulin administration. No current facility-administered medications on file prior to visit. Social History Social History Tobacco Use Smoking status: Every Day Current packs/day: 0.50 Average packs/day: 0.5 packs/day for 5.0 years (2.5 ttl pk-yrs) Types: Cigarettes Smokeless tobacco: Never Substance Use Topics Alcohol use: No Drug use: No REVIEW OF SYSTEMS: as above Reviewed relevant PMHx, PSHx, Social Hx, current medications and allergies. Review of Symptoms Neurological: (+) hand tingling, (+) hand numbness, (+) decreased hand sensation EXAM: BP 126/80 Pulse 72 Resp 16 Ht 155.5 cm (5' 1.22) Wt 52.4 kg (115 lb 9.6 oz) LMP 05/02/2014 (Approximate) BMI 21.69 kg/m? General Appearance: Well appearing, alert, in no acute distress, well-hydrated, well nourished.. Head: Normocephalic, no masses, lesions, tenderness or abnormalities. Eyes: Anicteric sclera. Pupils are equally round and reactive to light. Extraocular movements are intact. . Ears: External ears normal, canals clear. Nose/Sinuses: Nares normal, septum midline, mucosa normal, no drainage or sinus tenderness. Oropharynx: Lips, mucosa, and tongue normal, teeth and gums normal, oropharynx normal. Neck: Supple, no adenopathy; thyroid symmetric, normal size Lungs: Lungs clear to auscultation. No wheezing, rhonchi, rales.. Heart: RRR without murmur, gallop, or rubs. No ectopy. Abdomen: Normal abdominal exam, Abdomen soft, non-tender. Bowel sounds normal. No masses, organomegaly. Feet:Shoes and socks removed, No deformities, ulcers, calluses, and not sensitive to monofilament to dorsal aspect of the left foot with decreased sensation to plantar aspect. Right foot has decreased sensation to the dorsal aspect of the foot; absent feeling of the toes, plantar aspect. Health Maintenance List Hepatitis B Vaccine(1 of 3 - 19+ 3-dose series) Never done Shingrix Vaccine(1 of 2) Never done HbA1C due on 07/28/2020 Dilated Retinal Exam due on 09/20/2020 Urine Albumin:Creatinine Ratio due on 04/27/2021 LDL Cholesterol due on 04/27/2021 Pneumococcal Vaccine: 50+(2 of 2 - PCV) due on 05/04/2021 Cervical Cancer Screening due on 04/27/2022 Mammogram Screening due on 09/09/2023 Diabetic Foot Exam due on 03/27/2024 Influenza Vaccine(1) due on 10/07/2024 Annual PCP Team Chronic Disease Visit due on 09/10/2025 Colorectal Cancer Screening due on 05/01/2026 DTaP,Tdap,Td Vaccine(2 - Td or Tdap) due on 09/28/2026 Hepatitis C Screening Addressed HIV Screening Discontinued 1. Wellness examination (Z00.00) Patient has not had labs done in years. Currently taking escitalopram 40 mg daily for anxiety and depression, lisinopril 2.5 mg daily for hypertension, metformin 500 mg daily for diabetes, and atorvastatin for hyperlipidemia. Has not been using insulin for about a year. - Ordered comprehensive lab work including Hemoglobin A1c, CBC, metabolic profile, and lipid panel. - Discussed the importance of regular follow-up and monitoring of chronic conditions. - Follow-up in 3 months to review lab results and assess management of chronic conditions. 2. Type 2 diabetes mellitus with diabetic polyneuropathy, with long-term current use of insulin (HCC) (E11.42) Neuropathy in hands is worsening, with decreased sensation noted on exam. Patient has not been checking blood sugars and has not been on insulin for about a year. - Ordered DexBenbria G7 CGM to monitor blood glucose levels continuously. - If CGM is not approved, will prescribe glucose test strips and a glucometer for daily monitoring. - Initiated Lantus insulin with titration schedule: start at 10 units daily, increase by 2 units every 3 days if morning blood glucose is greater than 130 mg/dL. - Discussed potential use of gabapentin for neuropathy if glucose control does not improve symptoms. 3. Hyperlipidemia, mixed (E78.2) Currently managed with atorvastatin. Continue atorvastatin as prescribed. 4. Hypertension, essential (I10) Currently managed with lisinopril 2.5 mg daily. Continue lisinopril as prescribed. 5. Depression, unspecified depression type (F32.A) Anxiety (F41.9) Well-controlled with escitalopram 40 mg daily. Patient reports thriving at work. Refilled escitalopram prescription. 6. Encounter for screening mammogram for breast cancer (Z12.31) Due for mammogram screening. Advised patient to schedule a mammogram at the local clinic. Satinder Welch APRN.CNP RTO in 3 months, sooner if needed. This note was partly generated using [employer] voice recognition dictation and may contain some misspelled or inaccurate words missed on review. Recording using [employer] software for draft documentation of the visit was discussed with the patient/authorized abrasives sales representative; all questions welcomed and answered. Patient/authorized abrasives sales representative agreed to proceed CNOV Observed: 09/10/2024 9:00 AM Status: COMPLETED Source: [facility] ARLETTE SALGADO ([id number]) 1965 F Date Time Provider Department 09/10/24 9:00 AM [facility] During your visit today, we recorded the following information about you: Pulse Respiration Blood pressure Weight 72/minute 16/minute 126/80 52.4 kg Height 1.555 m Satinder Welch APRN.CNP 09/10/2024 9:31 AM Signed Chief Complaint Patient presents with: Physical HPI Arlette Salgado is a 58 year old female who presents here today for physical and medication follow up. Arlette Salgado is a 58-year-old female with a history of DM, HTN, HLD, and JOVANA, presenting for worsening neuropathy and a request for lab work. Arlette reports worsening neuropathy in her hands, describing a tingling sensation in her fingertips and difficulty holding objects. She notes that the neuropathy has been progressively worsening and is now affecting her ability to perform daily tasks. She believes her blood glucose levels may be elevated and expresses a desire to resume insulin therapy. She has not been monitoring her blood glucose levels and has been off Lantus for approximately one year. She is currently taking metformin once daily, as taking it twice daily causes gastrointestinal discomfort. She is also taking lisinopril, atorvastatin, and fluoxetine 40 mg daily, which she reports is effectively managing her anxiety and depression. Arlette has not had lab work done in several years and requests a comprehensive panel, including HbA1c, CBC, CMP, and lipid profile. She also inquires about scheduling a mammogram and Pap smear. Arlette is a current smoker, consuming approximately half a pack of cigarettes per day. She denies any recent changes in her smoking habits. Past medical history, appointments, medications, allergies reviewed. 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) Hyperlipidemia Hypertension Previous Surgical History PAST SURGICAL HISTORY Procedure Laterality Date ABLATION 2010 ARTHRP ACETBLR/PROX FEM PROSTC AGRFT/ALGRFT Left BREAST REDUCTION 2003 DELIVERY ONLY 1999, 2000, 2007 PAST SURGICAL HISTORY OF 1997 Laproscopy PAST SURGICAL HISTORY OF 2013 Spinal Fusion TONSILLECTOMY HX 1978 TUBAL LIGATION HX 2008 Family History FAMILY HISTORY Problem Relation Age of Onset COPD Mother Glaucoma Mother Macular Degen Mother Osteoporosis Mother other (Paratenitis) Maternal Grandmother Cancer Maternal Grandfather Bone Alzheimer's Disease Paternal Grandmother Cancer Paternal Grandfather Stomach Patient Allergies ALLERGIES Allergen Reactions Keflex [Cephalexin] Mental Status Change panic attacks Sulfa (Sulfonamide * Current Medications Current Outpatient Medications on File Prior to Visit Medication Sig blood sugar diagnostic (BLOOD GLUCOSE TEST) test strip Test blood sugar(s) 1 times daily. Dx: Type 2 DM - Uncontrolled E11.65 Insulin: Yes Lancets lancets Test blood sugar(s) 1 times daily. Dx: Type 2 DM - Uncontrolled E11.65 Insulin: Yes pravastatin (PRAVACHOL) 40 mg tablet Take 1 tablet by mouth once daily. citalopram (CELEXA) 40 mg tablet Take 1 tablet by mouth once daily. metFORMIN ER (GLUCOPHAGE XR) 500 mg 24 hr tablet TAKE 2 TABLETS BY MOUTH EVERY DAY WITH BREAKFAST glipiZIDE (GLUCOTROL) 5 mg tablet Take 1 tablet (5 mg) by mouth once daily. lisinopril 2.5 mg tablet Take 1 tablet by mouth once daily. insulin glargine (LANTUS SOLOSTAR U-100 INSULIN) 100 unit/mL (3 mL) Inject 25 Units subcutaneously daily at bedtime. (Patient not taking: Reported on 03/27/2023) Insulin [place], Disposable, (PEN NEEDLE) 32 gauge x 5/32 Inject 1 Each subcutaneously every 24 hours. Give with each insulin administration. No current facility-administered medications on file prior to visit. Social History Social History Tobacco Use Smoking status: Every Day Current packs/day: 0.50 Average packs/day: 0.5 packs/day for 5.0 years (2.5 ttl pk-yrs) Types: Cigarettes Smokeless tobacco: Never Substance Use Topics Alcohol use: No Drug use: No REVIEW OF SYSTEMS: as above Reviewed relevant PMHx, PSHx, Social Hx, current medications and allergies. Review of Symptoms Neurological: (+) hand tingling, (+) hand numbness, (+) decreased hand sensation EXAM: BP 126/80 Pulse 72 Resp 16 Ht 155.5 cm (5' 1.22) Wt 52.4 kg (115 lb 9.6 oz) LMP 05/02/2014 (Approximate) BMI 21.69 kg/m? General Appearance: Well appearing, alert, in no acute distress, well-hydrated, well nourished.. Head: Normocephalic, no masses, lesions, tenderness or abnormalities. Eyes: Anicteric sclera. Pupils are equally round and reactive to light. Extraocular movements are intact. . Ears: External ears normal, canals clear. Nose/Sinuses: Nares normal, septum midline, mucosa normal, no drainage or sinus tenderness. Oropharynx: Lips, mucosa, and tongue normal, teeth and gums normal, oropharynx normal. Neck: Supple, no adenopathy; thyroid symmetric, normal size Lungs: Lungs clear to auscultation. No wheezing, rhonchi, rales.. Heart: RRR without murmur, gallop, or rubs. No ectopy. Abdomen: Normal abdominal exam, Abdomen soft, non-tender. Bowel sounds normal. No masses, organomegaly. Feet:Shoes and socks removed, No deformities, ulcers, calluses, and not sensitive to monofilament to dorsal aspect of the left foot with decreased sensation to plantar aspect. Right foot has decreased sensation to the dorsal aspect of the foot; absent feeling of the toes, plantar aspect. Health Maintenance List Hepatitis B Vaccine(1 of 3 - 19+ 3-dose series) Never done Shingrix Vaccine(1 of 2) Never done HbA1C due on 07/28/2020 Dilated Retinal Exam due on 09/20/2020 Urine Albumin:Creatinine Ratio due on 04/27/2021 LDL Cholesterol due on 04/27/2021 Pneumococcal Vaccine: 50+(2 of 2 - PCV) due on 05/04/2021 Cervical Cancer Screening due on 04/27/2022 Mammogram Screening due on 09/09/2023 Diabetic Foot Exam due on 03/27/2024 Influenza Vaccine(1) due on 10/07/2024 Annual PCP Team Chronic Disease Visit due on 09/10/2025 Colorectal Cancer Screening due on 05/01/2026 DTaP,Tdap,Td Vaccine(2 - Td or Tdap) due on 09/28/2026 Hepatitis C Screening Addressed HIV Screening Discontinued 1. Wellness examination (Z00.00) Patient has not had labs done in years. Currently taking escitalopram 40 mg daily for anxiety and depression, lisinopril 2.5 mg daily for hypertension, metformin 500 mg daily for diabetes, and atorvastatin for hyperlipidemia. Has not been using insulin for about a year. - Ordered comprehensive lab work including Hemoglobin A1c, CBC, metabolic profile, and lipid panel. - Discussed the importance of regular follow-up and monitoring of chronic conditions. - Follow-up in 3 months to review lab results and assess management of chronic conditions. 2. Type 2 diabetes mellitus with diabetic polyneuropathy, with long-term current use of insulin (HCC) (E11.42) Neuropathy in hands is worsening, with decreased sensation noted on exam. Patient has not been checking blood sugars and has not been on insulin for about a year. - Ordered DexBenbria G7 CGM to monitor blood glucose levels continuously. - If CGM is not approved, will prescribe glucose test strips and a glucometer for daily monitoring. - Initiated Lantus insulin with titration schedule: start at 10 units daily, increase by 2 units every 3 days if morning blood glucose is greater than 130 mg/dL. - Discussed potential use of gabapentin for neuropathy if glucose control does not improve symptoms. 3. Hyperlipidemia, mixed (E78.2) Currently managed with atorvastatin. Continue atorvastatin as prescribed. 4. Hypertension, essential (I10) Currently managed with lisinopril 2.5 mg daily. Continue lisinopril as prescribed. 5. Depression, unspecified depression type (F32.A) Anxiety (F41.9) Well-controlled with escitalopram 40 mg daily. Patient reports thriving at work. Refilled escitalopram prescription. 6. Encounter for screening mammogram for breast cancer (Z12.31) Due for mammogram screening. Advised patient to schedule a mammogram at the local clinic. Satinder Welch APRN.ALEKSANDRA RTO in 3 months, sooner if needed. This note was partly generated using [employer] voice recognition dictation and may contain some misspelled or inaccurate words missed on review. Recording using [employer] software for draft documentation of the visit was discussed with the patient/authorized abrasives sales representative; all questions welcomed and answered. Patient/authorized abrasives sales representative agreed to proceed Satinder Welch APRN.CNP 09/10/2024 9:25 AM Addendum We discussed your diabetes and neuropathy: - You reported worsening neuropathy in your hands, including tingling and decreased sensation, which has been ongoing for over a year. This is likely related to elevated blood sugar levels. - I ordered lab work, including a Hemoglobin A1c, complete blood count, metabolic profile, and cholesterol panel, to assess your current diabetes control. - I will send a prescription for a continuous glucose monitor (Dexcom) to help track your blood sugar levels. If the Dexcom is not covered by your insurance, we will try the Freestyle Jane or provide a glucometer with test strips. - If using a glucometer, check your blood sugar at least once daily in the morning, especially if we restart insulin. - Check your morning blood sugar daily. If it is greater than 130, increase your Lantus dose by 2 units every 3 days until your morning blood sugar is consistently below 130. - We will focus on improving your blood sugar control before considering medications like gabapentin for neuropathy. If needed, gabapentin can be started at a low dose, typically at bedtime, to help with nerve pain and sleep. We discussed your current medications: - Continue taking the following medications as prescribed: - Sertraline 40 mg daily for anxiety and depression. Refills have been sent to your pharmacy. - Lisinopril 2.5 mg daily. - Metformin 500 mg once daily. You mentioned that taking it twice daily causes gastrointestinal side effects, so continue with the current dose. - Atorvastatin (Lipitor) for cholesterol management. - You have not been taking Lantus (insulin) for the past year. We will reassess the need for insulin after reviewing your blood sugar levels. We discussed your smoking: - You are currently smoking about half a pack of cigarettes per day. I encourage you to continue working toward reducing and eventually quitting smoking to improve your overall health. We discussed preventive care: - You are due for a mammogram and Pap smear. Please schedule these with your primary care provider. No referral is needed. Follow-up: - Please schedule a follow-up appointment with me in 3 months to review your lab results, blood sugar levels, and overall progress. - If you experience worsening neuropathy, significant changes in your blood sugar levels, or any other concerns, please contact our office. Example insulin titration schedule: Start taking 10 units daily of Lantus. Check your blood sugar every morning before eating or drinking anything (fasting blood sugar level). Adjust your insulin every 3 days as follows: If your blood sugar is above 129, INCREASE your insulin by 2 unit. If your blood sugar is 80-129, CONTINUE your current insulin dose. If your blood sugar is less than 80, DECREASE your insulin by 2 unit. Continue this method until you reach your target fasting blood sugar level consistently (80-130) Allergies As of Date: 09/10/2024 Noted Allergy Reaction KEFLEX (CEPHALEXIN) 08/02/2018 1 - Mental Status Change Comments: panic attacks SULFA (SULFONAMIDE ANTIBIOTICS) 07/10/2007 Date Reviewed: 09/10/2024 Reviewed by: SANDRA SCHULZ - Fully Assessed Reason for Visit: Physical [83] Primary Visit Diagnosis:Wellness examination [Z00.00] Other Visit Diagnoses:Type 2 diabetes mellitus with diabetic polyneuropathy, with long-term current use of insulin (HCC) [E11.42, Z79.4] Hyperlipidemia, mixed [E78.2] Hypertension, essential [I10] Depression, unspecified depression type [F32.A] Anxiety [F41.9] Encounter for screening mammogram for breast cancer [Z12.31] Order(s):HEMOGLOBIN A1C [CPYOC0A] Order #: [id number] FUTURE COMPLETE BLOOD COUNT AND DIFFERENTIAL [SQCBCDIF] Order #: [id number] FUTURE COMPREHENSIVE METABOLIC PANEL [SQCMP] Order #: [id number] FUTURE LIPID PANEL, FASTING [SQLIPB] Order #: [id number] FUTURE ALBUMIN/CREATININE RATIO, URINE [SQUACR] Order #: [id number] FUTURE MICKEY SCREENING W NORMA [8863271] Order #: [id number] FUTURE citalopram (CELEXA) 40 mg tabletTake 1 tablet by mouth once daily.Disp: 90 tabletRfl: 3 lisinopril 2.5 mg tabletTake 1 tablet by mouth once daily.Disp: 90 tabletRfl: 3 metFORMIN ER (GLUCOPHAGE XR) 500 mg 24 hr tabletTAKE 1 TABLETs BY MOUTH EVERY DAY WITH BREAKFASTDisp: 180 tabletRfl: 3 pravastatin (PRAVACHOL) 40 mg tabletTake 1 tablet by mouth once daily.Disp: 90 tabletRfl: 3 Blood-Glucose Sensor (DEXCOM G7 SENSOR) devi1 each every 2 weeks.Disp: 2 eachRfl: 5 Prescriptions as of 09/10/2024 - citalopram (CELEXA) 40 mg tablet Take 1 tablet by mouth once daily. - lisinopril 2.5 mg tablet Take 1 tablet by mouth once daily. - metFORMIN ER (GLUCOPHAGE XR) 500 mg 24 hr tablet TAKE 1 TABLETs BY MOUTH EVERY DAY WITH BREAKFAST - pravastatin (PRAVACHOL) 40 mg tablet Take 1 tablet by mouth once daily. - Blood-Glucose Sensor (DEXCOM G7 SENSOR) fabiola 1 each every 2 weeks. - blood sugar diagnostic (BLOOD GLUCOSE TEST) test strip Test blood sugar(s) 1 times daily. Dx: Type 2 DM - Uncontrolled E11.65 Insulin: Yes - Lancets lancets Test blood sugar(s) 1 times daily. Dx: Type 2 DM - Uncontrolled E11.65 Insulin: Yes - glipiZIDE (GLUCOTROL) 5 mg tablet Take 1 tablet (5 mg) by mouth once daily. - Insulin [place], Disposable, (PEN NEEDLE) 32 gauge x 5/32 Inject 1 Each subcutaneously every 24 hours. Give with each insulin administration. Meds Comments as of 11/17/2016: [facility] [place] [facility] [place] Problem List As Of Date 09/10/2024 Noted Resolved Hypertension, essential [I10] 09/23/2016 Hyperlipidemia, mixed [E78.2] 09/23/2016 Depression [F32.A] 09/23/2016 Anxiety [F41.9] 09/23/2016 Diabetes mellitus type 2, uncontrolled, without*09/28/2016 Type 2 diabetes mellitus without complication, *09/17/2021 Other instructions from your clinician: We discussed your diabetes and neuropathy: - You reported worsening neuropathy in your hands, including tingling and decreased sensation, which has been ongoing for over a year. This is likely related to elevated blood sugar levels. - I ordered lab work, including a Hemoglobin A1c, complete blood count, metabolic profile, and cholesterol panel, to assess your current diabetes control. - I will send a prescription for a continuous glucose monitor (Dexcom) to help track your blood sugar levels. If the Dexcom is not covered by your insurance, we will try the [employer] Jane or provide a glucometer with test strips. - If using a glucometer, check your blood sugar at least once daily in the morning, especially if we restart insulin. - Check your morning blood sugar daily. If it is greater than 130, increase your Lantus dose by 2 units every 3 days until your morning blood sugar is consistently below 130. - We will focus on improving your blood sugar control before considering medications like gabapentin for neuropathy. If needed, gabapentin can be started at a low dose, typically at bedtime, to help with nerve pain and sleep. We discussed your current medications: - Continue taking the following medications as prescribed: - Sertraline 40 mg daily for anxiety and depression. Refills have been sent to your pharmacy. - Lisinopril 2.5 mg daily. - Metformin 500 mg once daily. You mentioned that taking it twice daily causes gastrointestinal side effects, so continue with the current dose. - Atorvastatin (Lipitor) for cholesterol management. - You have not been taking Lantus (insulin) for the past year. We will reassess the need for insulin after reviewing your blood sugar levels. We discussed your smoking: - You are currently smoking about half a pack of cigarettes per day. I encourage you to continue working toward reducing and eventually quitting smoking to improve your overall health. We discussed preventive care: - You are due for a mammogram and Pap smear. Please schedule these with your primary care provider. No referral is needed. Follow-up: - Please schedule a follow-up appointment with me in 3 months to review your lab results, blood sugar levels, and overall progress. - If you experience worsening neuropathy, significant changes in your blood sugar levels, or any other concerns, please contact our office. Example insulin titration schedule: Start taking 10 units daily of Lantus. Check your blood sugar every morning before eating or drinking anything (fasting blood sugar level). Adjust your insulin every 3 days as follows: If your blood sugar is above 129, INCREASE your insulin by 2 unit. If your blood sugar is 80-129, CONTINUE your current insulin dose. If your blood sugar is less than 80, DECREASE your insulin by 2 unit. Continue this method until you reach your target fasting blood sugar level consistently (80-130) Prescriptions ordered this encounter Disp Refills Start End METFORMIN ER 500 MG TABLET,EXTENDED * 180 * 3 09/10/2024 09/10/2024 Sig: TAKE 1 TABLETs BY MOUTH EVERY DAY WITH BREAKFAST CITALOPRAM 40 MG TABLET 90 t* 3 09/10/2024 Route: PO Sig: Take 1 tablet by mouth once daily. LISINOPRIL 2.5 MG TABLET 90 t* 3 09/10/2024 Route: PO Sig: Take 1 tablet by mouth once daily. METFORMIN ER 500 MG TABLET,EXTENDED * 180 * 3 09/10/2024 Sig: TAKE 1 TABLETs BY MOUTH EVERY DAY WITH BREAKFAST PRAVASTATIN 40 MG TABLET 90 t* 3 09/10/2024 Route: PO Sig: Take 1 tablet by mouth once daily. DEXCOM G7 SENSOR DEVICE 2 ea* 5 09/10/2024 [facility]. Medications Discontinued During This Encounter Prescriptions - metFORMIN ER (GLUCOPHAGE XR) 500 mg 24 hr tablet (Discontinued) TAKE 2 TABLETS BY MOUTH EVERY DAY WITH BREAKFAST - pravastatin (PRAVACHOL) 40 mg tablet (Discontinued) Take 1 tablet by mouth once daily. - citalopram (CELEXA) 40 mg tablet (Discontinued) Take 1 tablet by mouth once daily. - lisinopril 2.5 mg tablet (Discontinued) Take 1 tablet by mouth once daily. - metFORMIN ER (GLUCOPHAGE XR) 500 mg 24 hr tablet (Discontinued) TAKE 1 TABLETs BY MOUTH EVERY DAY WITH BREAKFAST - insulin glargine (LANTUS SOLOSTAR U-100 INSULIN) 100 unit/mL (3 mL) (Discontinued) Reported on 03/27/2023 Level of Service: WELLNESS EXAMS EST 40-64 YRS [97970] Additional E/M codes: OFFICE/OUTPATIENT ESTABLISHED MOD MDM 3* VISIT [facility]X INHERENT EANDM ASSOC WITH MED * Disposition: Return in about 3 months (around 12/11/2024) for Routine follow up . LOS History for Encounter Level of Service: OFFICE/OUTPATIENT ESTABLISHED MOD MDM 30 MIN[93759] Date AND Time: 09-10-2024 9:30 AM Recorded by User: SATINDER WELCH Follow-up and Disposition History for Encounter Date Provider Department Center 09/10/2024 [id number], JESSE FAMPWS [facility] Encounter Status:Closed by SATINDER WELCH on 09/10/24 PROGRESS Observed: 03/18/2024 4:06 PM Status: COMPLETED Source: [facility] HNO ID: [id number] Author: VERO STARKS APRN.[employer]ERK Service: ? Author Type: Nurse Practitioner Type: Progress Notes Filed: 03/18/2024 17:15 Note Text: CC: Patient presents with: Cough: Cough, chest congestion, chills, fever and bodyaches x 3 days HPI Arlette Salgado is a 58 year old female who smokes and presents today for productive cough-white phlegm, nasal congestion-clear drainage, body aches, chills and nausea with decreased appetite since Monday. Today she reports feeling some better. She has been taking ibuprofen for her body aches but has used nothing else for her other symptoms. She denies chest pain, SOB, dyspnea, vomiting or diarrhea. She was exposed to influenza 4 days ago by her coworker. She is concerned she may have the flu. She would like tested for FLU/Covid/RSV. She is willing to take an antiviral if a candidate. She will need a work excuse. Review of Systems Constitutional: Positive for appetite change, chills and fatigue. HENT: Positive for congestion, postnasal drip, rhinorrhea and sore throat. Respiratory: Positive for cough and chest tightness. Negative for shortness of breath and wheezing. Cardiovascular: Negative for chest pain and palpitations. Gastrointestinal: Positive for nausea. Negative for abdominal pain, diarrhea and vomiting. Musculoskeletal: Positive for myalgias. Skin: Negative for rash. Neurological: Positive for headaches. 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 Dx: Type 2 DM - Uncontrolled E11.65 Insulin: Yes Lancets lancets Test blood sugar(s) 1 times daily. Dx: Type 2 DM - Uncontrolled E11.65 Insulin: Yes pravastatin (PRAVACHOL) 40 mg tablet Take 1 tablet by mouth once daily. citalopram (CELEXA) 40 mg tablet Take 1 tablet by mouth once daily. metFORMIN ER (GLUCOPHAGE XR) 500 mg 24 hr tablet TAKE 2 TABLETS BY MOUTH EVERY DAY WITH BREAKFAST glipiZIDE (GLUCOTROL) 5 mg tablet Take 1 tablet (5 mg) by mouth once daily. lisinopril 2.5 mg tablet Take 1 tablet by mouth once daily. insulin glargine (LANTUS SOLOSTAR U-100 INSULIN) 100 unit/mL (3 mL) Inject 25 Units subcutaneously daily at bedtime. (Patient not taking: Reported on 03/27/2023) Insulin [place], Disposable, (PEN NEEDLE) 32 gauge x 5/32 Inject 1 Each subcutaneously every 24 hours. Give with each insulin administration. FAMILY HISTORY Problem Relation Age of Onset COPD Mother Glaucoma Mother Macular Degen Mother Osteoporosis Mother other (Paratenitis) Maternal Grandmother Cancer Maternal Grandfather Bone Alzheimer's Disease Paternal Grandmother Cancer Paternal Grandfather Stomach Social History Tobacco Use Smoking status: Every Day Current packs/day: 0.50 Average packs/day: 0.5 packs/day for 5.0 years (2.5 ttl pk-yrs) Types: Cigarettes Smokeless tobacco: Never Substance Use Topics Alcohol use: No Drug use: No BP 118/76 Pulse (!) 57 Temp 36.7 ?C (98.1 ?F) (Tympanic) Resp 18 Wt 56.2 kg (123 lb 14.4 oz) LMP 05/02/2014 (Approximate) SpO2 100% BMI 22.66 kg/m? Physical Exam HENT: Right Ear: Tympanic membrane normal. Left Ear: Tympanic membrane normal. Nose: Rhinorrhea present. Rhinorrhea is clear. Right Turbinates: Swollen. Left Turbinates: Swollen. Right Sinus: No maxillary sinus tenderness or frontal sinus tenderness. Left Sinus: No maxillary sinus tenderness or frontal sinus tenderness. Mouth/Throat: Lips: [place]. Mouth: Mucous membranes are moist. Pharynx: Postnasal drip present. No oropharyngeal exudate or posterior oropharyngeal erythema. Eyes: Conjunctiva/sclera: Conjunctivae normal. Cardiovascular: Rate and Rhythm: Normal rate. Heart sounds: Normal heart sounds, S1 normal and S2 normal. No murmur heard. Pulmonary: Effort: Pulmonary effort is normal. Breath sounds: Normal breath sounds. No wheezing. Abdominal: General: Bowel sounds are normal. Palpations: Abdomen is soft. Tenderness: There is no abdominal tenderness. Lymphadenopathy: Cervical: No cervical adenopathy. Skin: General: Skin is warm. Neurological: Mental Status: She is alert. Psychiatric: Behavior: Behavior is cooperative. ASSESSMENT/PLAN: 1. Influenza A - ICD9: 487.1, ICD10: J10.1 (primary diagnosis). Flu like symptoms x 2 days . POC test positive Influenza today. Her last known GFR was 2020. She has no concerns regarding her kidney function and would like to proceed with a prescription for Tamiflu. DECLINES renal testing - Discussed viral etiology and rationale for treatment. - Symptomatic treatment with prn analgesia - Supportive care with fluids and rest - The patient may also use OTC decongestants prn, OTC cough and cold meds as needed, warm salt water gargles, throat lozenges and/or OTC throat spray as needed, and OTC saline nasal sprays prn. - Follow up BONNIE with her PCP for follow up on her diabetes and other chronic problems. - Work excuse provided - Prescription sent to pharmacy - TAMIFLU - INFLUENZA AANDB MOLECULAR (POC) Prescription instructions reviewed with patient as applicable. Potential red flag symptoms discussed with the patient. Reviewed appropriate action plan to take if red flag symptoms occur. Patient agreeable to treatment plan. Charmaine Jonas TEACHING PROVIDER (Physician/PA/HOSPITAL CHIEF EXECUTIVE OFFICER) NOTE OF PERSONAL INVOLVEMENT IN CARE: I have personally seen and examined the patient and performed the medical decision-making components. I have reviewed the Advanced Practice Registered Nurse (HOSPITAL CHIEF EXECUTIVE OFFICER) Student's documentation and verified the findings in the note as written. Any additions or changes are noted in bold/italics. Signature: Vero Starks Date: 03/18/2024 Time: 5:14 PM CNOV Observed: 03/18/2024 4:00 PM Status: COMPLETED Source: [facility] Office Visit (WSTR) ARLETTE SALGADO ([id number]) 1965 F Date Time Provider Department 03/18/24 4:00 PM VERO STARKS [facility] During your visit today, we recorded the following information about you: Temperature Pulse Respiration Blood pressure 98.1 degrees 57/minute 18/minute 118/76 Weight 56.2 kg Vero Starks APRN.[employer] MARK[employer] CLERK 03/18/2024 5:15 PM Signed CC: Patient presents with: Cough: Cough, chest congestion, chills, fever and bodyaches x 3 days HPI Arlette Cherry Naomi is a 58 year old female who smokes and presents today for productive cough-white phlegm, nasal congestion-clear drainage, body aches, chills and nausea with decreased appetite since Monday. Today she reports feeling some better. She has been taking ibuprofen for her body aches but has used nothing else for her other symptoms. She denies chest pain, SOB, dyspnea, vomiting or diarrhea. She was exposed to influenza 4 days ago by her coworker. She is concerned she may have the flu. She would like tested for FLU/Covid/RSV. She is willing to take an antiviral if a candidate. She will need a work excuse. Review of Systems Constitutional: Positive for appetite change, chills and fatigue. HENT: Positive for congestion, postnasal drip, rhinorrhea and sore throat. Respiratory: Positive for cough and chest tightness. Negative for shortness of breath and wheezing. Cardiovascular: Negative for chest pain and palpitations. Gastrointestinal: Positive for nausea. Negative for abdominal pain, diarrhea and vomiting. Musculoskeletal: Positive for myalgias. Skin: Negative for rash. Neurological: Positive for headaches. 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 Dx: Type 2 DM - Uncontrolled E11.65 Insulin: Yes Lancets lancets Test blood sugar(s) 1 times daily. Dx: Type 2 DM - Uncontrolled E11.65 Insulin: Yes pravastatin (PRAVACHOL) 40 mg tablet Take 1 tablet by mouth once daily. citalopram (CELEXA) 40 mg tablet Take 1 tablet by mouth once daily. metFORMIN ER (GLUCOPHAGE XR) 500 mg 24 hr tablet TAKE 2 TABLETS BY MOUTH EVERY DAY WITH BREAKFAST glipiZIDE (GLUCOTROL) 5 mg tablet Take 1 tablet (5 mg) by mouth once daily. lisinopril 2.5 mg tablet Take 1 tablet by mouth once daily. insulin glargine (LANTUS SOLOSTAR U-100 INSULIN) 100 unit/mL (3 mL) Inject 25 Units subcutaneously daily at bedtime. (Patient not taking: Reported on 03/27/2023) Insulin [place], Disposable, (PEN NEEDLE) 32 gauge x 5/32 Inject 1 Each subcutaneously every 24 hours. Give with each insulin administration. FAMILY HISTORY Problem Relation Age of Onset COPD Mother Glaucoma Mother Macular Degen Mother Osteoporosis Mother other (Paratenitis) Maternal Grandmother Cancer Maternal Grandfather Bone Alzheimer's Disease Paternal Grandmother Cancer Paternal Grandfather Stomach Social History Tobacco Use Smoking status: Every Day Current packs/day: 0.50 Average packs/day: 0.5 packs/day for 5.0 years (2.5 ttl pk-yrs) Types: Cigarettes Smokeless tobacco: Never Substance Use Topics Alcohol use: No Drug use: No BP 118/76 Pulse (!) 57 Temp 36.7 ?C (98.1 ?F) (Tympanic) Resp 18 Wt 56.2 kg (123 lb 14.4 oz) LMP 05/02/2014 (Approximate) SpO2 100% BMI 22.66 kg/m? Physical Exam HENT: Right Ear: Tympanic membrane normal. Left Ear: Tympanic membrane normal. Nose: Rhinorrhea present. Rhinorrhea is clear. Right Turbinates: Swollen. Left Turbinates: Swollen. Right Sinus: No maxillary sinus tenderness or frontal sinus tenderness. Left Sinus: No maxillary sinus tenderness or frontal sinus tenderness. Mouth/Throat: Lips: [place]. Mouth: Mucous membranes are moist. Pharynx: Postnasal drip present. No oropharyngeal exudate or posterior oropharyngeal erythema. Eyes: Conjunctiva/sclera: Conjunctivae normal. Cardiovascular: Rate and Rhythm: Normal rate. Heart sounds: Normal heart sounds, S1 normal and S2 normal. No murmur heard. Pulmonary: Effort: Pulmonary effort is normal. Breath sounds: Normal breath sounds. No wheezing. Abdominal: General: Bowel sounds are normal. Palpations: Abdomen is soft. Tenderness: There is no abdominal tenderness. Lymphadenopathy: Cervical: No cervical adenopathy. Skin: General: Skin is warm. Neurological: Mental Status: She is alert. Psychiatric: Behavior: Behavior is cooperative. ASSESSMENT/PLAN: 1. Influenza A - ICD9: 487.1, ICD10: J10.1 (primary diagnosis). Flu like symptoms x 2 days . POC test positive Influenza today. Her last known GFR was 2020. She has no concerns regarding her kidney function and would like to proceed with a prescription for Tamiflu. DECLINES renal testing - Discussed viral etiology and rationale for treatment. - Symptomatic treatment with prn analgesia - Supportive care with fluids and rest - The patient may also use OTC decongestants prn, OTC cough and cold meds as needed, warm salt water gargles, throat lozenges and/or OTC throat spray as needed, and OTC saline nasal sprays prn. - Follow up BONNIE with her PCP for follow up on her diabetes and other chronic problems. - Work excuse provided - Prescription sent to pharmacy - TAMIFLU - INFLUENZA AANDB MOLECULAR (POC) Prescription instructions reviewed with patient as applicable. Potential red flag symptoms discussed with the patient. Reviewed appropriate action plan to take if red flag symptoms occur. Patient agreeable to treatment plan. Charmaine Jonas TEACHING PROVIDER (Physician/PA/HOSPITAL CHIEF EXECUTIVE OFFICER) NOTE OF PERSONAL INVOLVEMENT IN CARE: I have personally seen and examined the patient and performed the medical decision-making components. I have reviewed the Advanced Practice Registered Nurse (HOSPITAL CHIEF EXECUTIVE OFFICER) Student's documentation and verified the findings in the note as written. Any additions or changes are noted in bold/italics. Signature: Vero Starks Date: 03/18/2024 Time: 5:14 PM Vero Starks APRN.MONEY MARKET CLERK 03/18/2024 4:22 PM Signed [facility] PATIENT INFO INFLUENZA INTRODUCTION Influenza (commonly called the flu) is a highly contagious illness that can occur in children or adults of any age. It occurs more often in the winter months because people spend more time in close contact with one another. The flu is spread easily from htkbax-vc-gjzmij by coughing, sneezing, or touching surfaces. Every year, complications of the flu require more than 200,000 people in the [place] to be hospitalized. Serious illness is more likely in the very young, older adults, women, and people who have certain health problems such as asthma or other forms of lung disease. There have been several widespread flu outbreaks (called pandemics), which led to the deaths of many people worldwide. These outbreaks occurred when new strains of influenza viruses formed (often from pigs or birds) and humans became infected because they had no immunity to these viruses. FLU SYMPTOMS Symptoms of seasonal flu can vary from person to person, but usually include: Fever (temperature higher than 100?F or 37.8?C) Headache and muscle aches Fatigue Cough and sore throat may also be present People with the flu usually have a fever for two to five days. This is different than fever caused by other upper respiratory viruses, which usually resolve after 24 to 48 hours. Some people have cold-like symptoms (runny nose, sore throat) during the flu while others have fever and muscle aches. Flu symptoms usually improve over two to five days, although the illness may last for a week or more. Weakness and fatigue may persist for several weeks Flu complications -- Complications of influenza occur in some people; pneumonia is the most common complication. Pneumonia is a serious infection of the lungs, and is more likely to occur in people over the age of 65, people who live in grinder set up operator jig care facilities (nursing homes), and those with other illnesses such as diabetes or conditions affecting the heart or lungs. FLU DIAGNOSIS Influenza is usually diagnosed based on symptoms (fever, cough and muscle aches). Lab testing for influenza is performed in certain cases, such as during a new influenza outbreak in a community. FLU TREATMENT When to seek help -- Most people with the flu recover within one to two weeks without treatment. However, serious complications of the flu can occur. Call your doctor or nurse immediately if: You feel short of breath or have trouble breathing You have pain or pressure in your chest or stomach You have signs of being dehydrated, such as dizziness when standing or not passing urine You feel confused You cannot stop vomiting or you cannot drink enough fluids There are several groups of people who are at increased risk for flu complications. These include women, young children (<5 years of age, and especially <2 years of age), people >=65 years of age, and people with certain diseases such as chronic lung disease (such as asthma), heart disease, diabetes, immunosuppressing conditions (such as HIV infection or transplantation), and some other diseases. If you or your child has flu symptoms and is at increased risk of flu complications, you should call your healthcare provider. Treat symptoms -- Treating the symptoms of influenza can help you to feel better, but will not make the flu go away faster. Rest until the flu is fully resolved, especially if the illness has been severe Fluids -- Drink enough fluids so that you do not become dehydrated. One way to geoscientist if you are drinking enough is to look at the color of your urine. Normally, urine should be light yellow to nearly colorless. If you are drinking enough, you should pass urine every three to five hours. Acetaminophen (such as Tylenol? and other brands) can relieve fever, headache, and muscle aches. Aspirin, and medicines that include aspirin (eg, bismuth subsalicylate; PeptoBismol), are not recommended for children under 18 because aspirin can lead to a serious disease called Irene syndrome. Cough medicines are not usually helpful; cough usually resolves without treatment. We do not recommend cough or cold medicine for children under age six years. Antiviral treatment -- Antiviral medicines can be used to treat or prevent influenza. When used as a treatment, the medicine does not eliminate flu symptoms, although it can reduce the severity and duration of symptoms by about one day. Not every person with influenza needs an antiviral medicine; the decision is based upon your risk of developing complications of influenza. Antiviral treatment is most effective for seasonal influenza when it is taken within the first 48 hours of flu symptoms. Side effects -- Zanamivir and oseltamivir can cause mild side effects, including nausea and vomiting; zanamivir, which is inhaled, can cause difficulty breathing in some cases. Most people are able to continue the medicine despite the side effects. Antibiotics -- Antibiotics are NOT useful for treating viral illnesses such as influenza. Antibiotics should only used if there is a bacterial complication of the flu such as bacterial pneumonia, ear infection, or sinusitis. Antibiotics can cause side effects and lead to development of antibiotic resistance. Allergies As of Date: 03/18/2024 Noted Allergy Reaction KEFLEX (CEPHALEXIN) 08/02/2018 1 - Mental Status Change Comments: panic attacks SULFA (SULFONAMIDE ANTIBIOTICS) 07/10/2007 Date Reviewed: 03/18/2024 Reviewed by: Charmaine Jonas - Fully Assessed Reason for Visit: Cough [28] Cmt: Cough, chest congestion, chills, fever and bodyaches x 3 days Primary Visit Diagnosis:Influenza A [J10.1] Other Visit Diagnosis:URI, acute [J06.9] Order(s):INFLUENZA AANDB MOLECULAR (POC) [[id number]] Order #: [id number]. #:[id number] oseltamivir (TAMIFLU) 75 mg capsuleTake 1 capsule by mouth two times a day for 5 days.Disp: 10 capsuleRfl: 0 Prescriptions as of 03/18/2024 - oseltamivir (TAMIFLU) 75 mg capsule Take 1 capsule by mouth two times a day for 5 days. - blood sugar diagnostic (BLOOD GLUCOSE TEST) test strip Test blood sugar(s) 1 times daily. Dx: Type 2 DM - Uncontrolled E11.65 Insulin: Yes - Lancets lancets Test blood sugar(s) 1 times daily. Dx: Type 2 DM - Uncontrolled E11.65 Insulin: Yes - pravastatin (PRAVACHOL) 40 mg tablet Take 1 tablet by mouth once daily. - citalopram (CELEXA) 40 mg tablet Take 1 tablet by mouth once daily. - metFORMIN ER (GLUCOPHAGE XR) 500 mg 24 hr tablet TAKE 2 TABLETS BY MOUTH EVERY DAY WITH BREAKFAST - glipiZIDE (GLUCOTROL) 5 mg tablet Take 1 tablet (5 mg) by mouth once daily. - lisinopril 2.5 mg tablet Take 1 tablet by mouth once daily. - insulin glargine (LANTUS SOLOSTAR U-100 INSULIN) 100 unit/mL (3 mL) Inject 25 Units subcutaneously daily at bedtime. - Insulin [place], Disposable, (PEN NEEDLE) 32 gauge x 5/32 Inject 1 Each subcutaneously every 24 hours. Give with each insulin administration. Meds Comments as of 11/17/2016: [facility] Problem List As Of Date 03/18/2024 Noted Resolved Hypertension, essential [I10] 09/23/2016 Hyperlipidemia, mixed [E78.2] 09/23/2016 Depression [F32.A] 09/23/2016 Anxiety [F41.9] 09/23/2016 Diabetes mellitus type 2, uncontrolled, without*09/28/2016 Type 2 diabetes mellitus without complication, *09/17/2021 Other instructions from your clinician: EXPRESS CARE PATIENT INFO INFLUENZA INTRODUCTION Influenza (commonly called the flu) is a highly contagious illness that can occur in children or adults of any age. It occurs more often in the winter months because people spend more time in close contact with one another. The flu is spread easily from dslssd-um-cdtrjl by coughing, sneezing, or touching surfaces. Every year, complications of the flu require more than 200,000 people in the [place] to be hospitalized. Serious illness is more likely in the very young, older adults, women, and people who have certain health problems such as asthma or other forms of lung disease. There have been several widespread flu outbreaks (called pandemics), which led to the deaths of many people worldwide. These outbreaks occurred when new strains of influenza viruses formed (often from pigs or birds) and humans became infected because they had no immunity to these viruses. FLU SYMPTOMS Symptoms of seasonal flu can vary from person to person, but usually include: Fever (temperature higher than 100?F or 37.8?C) Headache and muscle aches Fatigue Cough and sore throat may also be present People with the flu usually have a fever for two to five days. This is different than fever caused by other upper respiratory viruses, which usually resolve after 24 to 48 hours. Some people have cold-like symptoms (runny nose, sore throat) during the flu while others have fever and muscle aches. Flu symptoms usually improve over two to five days, although the illness may last for a week or more. Weakness and fatigue may persist for several weeks Flu complications -- Complications of influenza occur in some people; pneumonia is the most common complication. Pneumonia is a serious infection of the lungs, and is more likely to occur in people over the age of 65, people who live in grinder set up operator jig care facilities (nursing homes), and those with other illnesses such as diabetes or conditions affecting the heart or lungs. FLU DIAGNOSIS Influenza is usually diagnosed based on symptoms (fever, cough and muscle aches). Lab testing for influenza is performed in certain cases, such as during a new influenza outbreak in a community. FLU TREATMENT When to seek help -- Most people with the flu recover within one to two weeks without treatment. However, serious complications of the flu can occur. Call your doctor or nurse immediately if: You feel short of breath or have trouble breathing You have pain or pressure in your chest or stomach You have signs of being dehydrated, such as dizziness when standing or not passing urine You feel confused You cannot stop vomiting or you cannot drink enough fluids There are several groups of people who are at increased risk for flu complications. These include women, young children (<5 years of age, and especially <2 years of age), people >=65 years of age, and people with certain diseases such as chronic lung disease (such as asthma), heart disease, diabetes, immunosuppressing conditions (such as HIV infection or transplantation), and some other diseases. If you or your child has flu symptoms and is at increased risk of flu complications, you should call your healthcare provider. Treat symptoms -- Treating the symptoms of influenza can help you to feel better, but will not make the flu go away faster. Rest until the flu is fully resolved, especially if the illness has been severe Fluids -- Drink enough fluids so that you do not become dehydrated. One way to geoscientist if you are drinking enough is to look at the color of your urine. Normally, urine should be light yellow to nearly colorless. If you are drinking enough, you should pass urine every three to five hours. Acetaminophen (such as Tylenol? and other brands) can relieve fever, headache, and muscle aches. Aspirin, and medicines that include aspirin (eg, bismuth subsalicylate; PeptoBismol), are not recommended for children under 18 because aspirin can lead to a serious disease called Irene syndrome. Cough medicines are not usually helpful; cough usually resolves without treatment. We do not recommend cough or cold medicine for children under age six years. Antiviral treatment -- Antiviral medicines can be used to treat or prevent influenza. When used as a treatment, the medicine does not eliminate flu symptoms, although it can reduce the severity and duration of symptoms by about one day. Not every person with influenza needs an antiviral medicine; the decision is based upon your risk of developing complications of influenza. Antiviral treatment is most effective for seasonal influenza when it is taken within the first 48 hours of flu symptoms. Side effects -- Zanamivir and oseltamivir can cause mild side effects, including nausea and vomiting; zanamivir, which is inhaled, can cause difficulty breathing in some cases. Most people are able to continue the medicine despite the side effects. Antibiotics -- Antibiotics are NOT useful for treating viral illnesses such as influenza. Antibiotics should only used if there is a bacterial complication of the flu such as bacterial pneumonia, ear infection, or sinusitis. Antibiotics can cause side effects and lead to development of antibiotic resistance. Prescriptions ordered this encounter Disp Refills Start End OSELTAMIVIR 75 MG CAPSULE 10 c* 0 03/18/2024 03/23/2024 Route: ORAL Sig: Take 1 capsule by mouth two times a day for 5 days. Letter Text Encounter Status:Closed by VERO STARKS on 03/18/24 ALLERGIES DATE TYPE / CODE NAME / CODE REACTION SEVERITY SOURCE 08/02/2018 DRUG INGREDI/[id number] 03(SNOMED CT) CEPHALEXIN Mental Chg [facility] 07/10/2007 Drug Class/[id number] (SNOMED CT) SULFA (SULFONAMIDE ANTIBIOTICS) [facility] ENCOUNTERS ADMIT/DISCHARGE ACCOUNT NUMBER ADMITTING ENCOUNTER CLASS LOC ATION SOURCE 09/16/2024/ 5 [id number] Ambulatory [facility] 09/10/2024/ 5 [id number] [facility] 03/18/2024/ 5 [id number] Ambulatory [facility] ing:[facility] PAYERS ENCOUNTER GUARANTOR PAYER SUBSCRIBER SOURCE 09/16/2024 Primary Insurance:BLUE CARD PPO OOSPolicy Number: [id number] Date:[id number] Name:Tanja WALLER: [id number] [place] [address] [facility] 09/10/2024 Primary Insurance:BLUE CARD PPO OOSPolicy Number: [id number] Date:[id number] Name:Tanja WALLER: [id number] [place] [address] [facility] 03/18/2024 Primary Insurance:BLUE CARD PPO OOSPolicy Number: [id number] Date:[id number] Name:Tanja WALLER: [id number] [place] [address] [facility]
[2024-11-01] VITALS (14 sets, daily range): BP systolic 103–161; BP diastolic 67–96; PULSE 67–85; RESP 16–18; TEMP 36.1–37.1; O2SAT 95–99; BMI 21.0; BMI 21.7
--- NOTE | 2024-11-01 07:39 | ED.VIS.LOWEX ---
HPI History of Present Illness Chief Complaint: Wound Informant: patient Narrative Narrative: Patient is a 59-year-old female with history of diabetic neuropathy and hypertension presenting with trauma and injury to her right great toe. Patient states she woke up to go the bathroom and saw a lot of blood on the ground. She looked down and noticed that significant portion of her right great toe was missing. She think her dog chewed it off while she was sleeping. She states she does not have any significant pain but is starting to throb now. She does not know when her last tetanus was. States that a couple weeks ago she did have a cut to her toe and was missing her right great toenail however that was actually starting to heal. She does not see a regional controller. No other complaints or concerns at this time. States that she was in her normal state of health when she went to bed last night. Tetanus Immunization: Unknown [facility] Medical History Diabetes Home Medications ?Medication ?Instructions ?Recorded ?Last Taken ?Type citalopram 40 mg tablet 40 mg PO QHS Depression/Anxiety 02/26/19 02/25/19 22:00 History 40 mg glipizide 5 mg tablet 5 mg PO DAILY DM 02/26/19 02/26/19 08:00 History 5 mg insulin detemir U-100 100 unit/mL 20 units subcut QHS DM 02/26/19 02/25/19 22:00 History (3 mL) subcutaneous pen 20 units lisinopril 2.5 mg tablet 2.5 mg PO QHS BP 02/26/19 02/25/19 22:00 History 2.5mg metformin 500 mg tablet 500 mg PO BID DM 02/26/19 02/26/19 08:00 History 500 mg pravastatin 10 mg tablet 10 mg PO QHS Cholesterol 02/26/19 02/25/19 22:00 History 10 mg Allergy/AdvReac Type Severity Reaction Status Date / Time Sulfa (Sulfonamide Allergy Rash Verified 11/01/24 07:10 Antibiotics) Surgical History History of laminectomy Social History Smoking Status: Current every day smoker tobacco type: cigarettes ROS ROS ED Constitutional Constitutional ED: Denies chills or fever(s) Respiratory/Chest Respiratory/Chest: Denies cough Gastrointestinal Gastrointestinal: Denies nausea or vomiting Integumentary Reports other Details: Wound to her right great toe Neurologic Neurologic: Reports paresthesias and other Details: Diabetic neuropathy Psychiatric Psychiatric: Denies anxiety Hematologic/Lymphatic Hematologic/Lymphatic: Denies easy bleeding or easy bruising EXAM Physical Exam Const Vital Signs: 11/01/24 07:10 11/01/24 08:10 11/01/24 08:36 Temperature 97.9 F 98.7 F Temperature Source Temporal Pulse Rate 78 70 67 Respiratory Rate 16 18 18 Blood Pressure 159/96 H 161/87 H 139/85 H Blood Pressure Mean 117 111 103 Pulse Ox 99 97 97 Oxygen Delivery Method Room Air Room Air Positive well nourished and well developed General Appearance ED: well developed and NAD HEENT normocephalic and atraumatic Chest Wall inspection of chest normal and palpation of chest normal Resp normal respiratory effort Cardio regular rate and regular rhythm Extremity Extremity Narrative: Deformity of the right great toe with decreased range of motion at the interphalangeal joint. Neuro oriented x3, moves all extremities and no sensory deficits noted Sensorium / Orientation: alert Psych mental status grossly normal Skin Skin Narrative: Macerated full-thickness complex laceration to the right great toe with exposure of underlying bone and anatomy. The distal aspect is absent. Is consistent with a dog having chewed off a section of the toe. Proximally there is some scattered superficial abrasions but no full-thickness lacerations at the base of the great toe. No other wounds appreciated. MDM MDM MDM Narrative Medical decision making narrative: Patient evaluated for injury to her right great toe after her dog appears to have chewed off a section of this while she was sleeping. She is hemodynamically stable and is not actively bleeding. Differential includes traumatic amputation, complex laceration and possible underlying osteomyelitis. Will obtain baseline labs CBC (checking for leukocytosis or anemia from blood loss) as well as BMP for renal function and check glucose. Patient given tetanus, fentanyl and Ancef. X-ray obtained. X-ray reviewed by myself as well as as radiology. X-ray my interpretation consistent with comminuted fracture of the distal phalanx and partial amputation as well as significant soft tissue injury. There is fracture extending to the proximal phalanx as well. Will discuss with podiatry, Dr. Romo. Patient will go to the OR later today for amputation. Case discussed with patient and she is agreeable. Made NPO. Started on maintenance fluid. Patient's blood sugar was noted to be 524. She has normal anion gap and bicarb. Low suspicion for DKA or HHNK. Her calculated serum osmolality is 524. Will be given IV fluids and insulin as needed for better blood pressure control. Patient admits to nursing staff that she had not had her insulin and had not been taking for the past 2 months. Lab Data Labs: Laboratory Results - last 24 hr 11/01/24 07:46 WBC 7.0 RBC 4.63 Hgb 14.8 Hct 41.0 MCV 88.6 MCH 32.0 MCHC 36.1 H RDW Std Deviation 39.0 RDW Coeff of Daniella 12.2 Plt Count 222 MPV 9.6 Immature Gran % (Auto) 0.300 Neut % (Auto) 57.0 Lymph % (Auto) 33.4 Harrison % (Auto) 6.1 Eos % (Auto) 2.9 Baso % (Auto) 0.3 Absolute Neuts (auto) 4.0 Absolute Lymphs (auto) 2.34 Nucleated RBC % 0 Radiography Diagnostic Testing: Clinical Impression(s) from Imaging Studies Toe X-Ray 11/01/24 07:50 IMPRESSION: Partial amputation of the right 1st toe is seen, also with markedly comminuted fracture involving the distal portion of the proximal phalanx. A small portion of the distal phalanx may be present, well. No radiopaque foreign body is clearly evident at this time. Reading Location: [id number] Discharge Plan Dx/Rx/DC Orders Clinical Impression: Amputation of great toe, right, traumatic, Need for Tdap vaccination, Uncontrolled diabetes mellitus Disposition Disposition: Acute Care Hospital [facility]
--- NOTE | 2024-11-01 07:50 | RAD_ITS ---
PROCEDURE: TOE(S) MIN 2 VIEWS 11/01/2024 REASON FOR EXAM: TRAUMA TECHNIQUE: Procedure Code: RADTO Modality: DX Procedure: TOE(S) MIN 2 VIEWS Laterality: Right COMPARISON: None. RAD/Toe(s) Min 2 Views IMPRESSION: Partial amputation of the right 1st toe is seen, also with markedly comminuted fracture involving the distal portion of the proximal phalanx. A small portion of the distal phalanx may be present, well. No radiopaque foreign body is clearly evident at this time. Reading Location: [id number]
[2024-11-01 07:55] LABS: Hematocrit 41.0 % (37-47); Hemoglobin 14.8 g/dL (12.0-15.0); Immature Granulocytes Count 0.020 X10^3/uL (0.0-0.0); Mean Corp Hgb Conc 36.1 g/dL (32-36); Mean Corpuscular Volume 88.6 fL (81-99); Mean Platelet Vol. 9.6 fl (6.2-12.0); NRBC Flagged by Analyzer 0 % (0-5); Platelet Count 222 K/mm3 (150-450); RBC Distribution Width CV 12.2 % (11.6-14.6); RBC Distribution Width SD 39.0 fl (35.1-43.9); Red Blood Count 4.63 M/mm3 (4.2-5.4); White Blood Count 7.0 K/mm3 (4.4-11.0)
[2024-11-01] MEDS: fentaNYL 100 MCG/2 ML Ampul 50 MCG IV (08:09)
[2024-11-01] MEDS: Cefazolin 1 GM/50 ML BAG IV (08:10)
[2024-11-01 08:39] LABS: Anion Gap 11 (5-15); BUN 15 mg/dL (4-19); BUN/Creat Ratio 18.0 RATIO (10-20); Calcium,Total 9.8 mg/dL (7.6-11.0); Carbon Dioxide 24.9 mmol/L (21.0-32.0); Chloride 99 mmol/L (98-108); Estimated Creatinine Clearance 57.74 ml/min (50-250); Glucose 524 mg/dL (70-99); Potassium 4.2 mmol/L (3.3-5.1)
[2024-11-01] MEDS: 0.9% Normal Saline (1000mL) 1,000 ML 999 ML IV (08:39)
--- NOTE | 2024-11-01 10:17 | PCM.HP.STD ---
HPI - General General Date of Service: 11/01/24 Chief Complaint: Right Hallux Wound HPI Narrative RUSTY SINGH, is a 59 F who presents to [facility] following Right Hallux traumatic injury. She reports trimming nail and delveloping wound to the Right Hallux earlier in the week. Reports that overnight/trust and estates attorney that her dog must have chewed her toe off because she awoke to a mangled digit with bone sticking out and profuse bleeding. She immediately reported to the ED for further evaluation. ED physician Dr. Shelby evaluated patient and reached out to me for immediate consultation/surgical intervention. Labs were obtained in addition to radiographs in anticipation of surgical intervention this morning. Patient does have hyperglycemia and is expected to stay overnight for management to control blood sugars as she has not followed with PCP in over a year and has stopped taking Insulin that was prescribed. [facility] Medical History (Updated 11/01/24 @ 14:[address] Josh Cole DO) Diabetic neuropathy Diabetes Home Medications ?Medication ?Instructions ?Recorded ?Last Taken ?Type citalopram 40 mg tablet 40 mg PO QHS Depression/Anxiety 02/26/19 02/25/19 22:00 History 40 mg glipizide 5 mg tablet 5 mg PO DAILY DM 02/26/19 02/26/19 08:00 History 5 mg insulin detemir U-100 100 unit/mL 20 units subcut QHS DM 02/26/19 02/25/19 22:00 History (3 mL) subcutaneous pen 20 units lisinopril 2.5 mg tablet 2.5 mg PO QHS BP 02/26/19 02/25/19 22:00 History 2.5mg metformin 500 mg tablet 500 mg PO BID DM 02/26/19 02/26/19 08:00 History 500 mg pravastatin 10 mg tablet 10 mg PO QHS Cholesterol 02/26/19 02/25/19 22:00 History 10 mg Allergy/AdvReac Type Severity Reaction Status Date / Time Sulfa (Sulfonamide Allergy Rash Verified 11/01/24 10:09 Antibiotics) Surgical History History of laminectomy Social History Smoking Status: Current every day smoker tobacco type: cigarettes ROS Constitutional Constitutional: Denies chills, fever(s), malaise or weakness Eyes Eyes: Denies change in vision, diplopia or loss of vision ENT HEENT: Denies dysphagia, rhinorrhea, sinus pain or sore throat Cardiovascular Cardiovascular: Denies chest pain, claudication or palpitations Respiratory/Chest Respiratory/Chest: Denies cough or dyspnea Gastrointestinal Gastrointestinal: Denies abdominal pain, constipation, diarrhea, nausea or vomiting Genitourinary Genitourinary: Denies dysuria, hematuria or urinary urgency Musculoskeletal Musculoskeletal: Denies joint pain, joint stiffness or joint swelling Integumentary Integumentary: Denies pruritus or rash Neurologic Neurologic: Denies dizziness, numbness or seizures Psychiatric Psychiatric: Denies anxiety or depression Endocrine Endocrinology: Denies polydipsia, polyphagia or polyuria Hematologic/Lymphatic Hematologic/Lymphatic: Denies easy bleeding or easy bruising Allergic/Immunologic Allergic/Immunologic: Denies wheezing Vital Signs Vital Signs Vital Signs: 11/01/24 07:10 11/01/24 08:10 11/01/24 08:36 Temperature 97.9 F 98.7 F Temperature Source Temporal Pulse Rate 78 70 67 Respiratory Rate 16 18 18 Blood Pressure 159/96 H 161/87 H 139/85 H Blood Pressure Mean 117 111 103 Pulse Ox 99 97 97 Oxygen Delivery Method Room Air Room Air Weight Weight: 52.3 kg Body Mass Index (BMI) 21.0 Physical Exam Const alert, oriented x3 and no apparent distress General Appearance: cooperative HEENT normocephalic Eyes General Eye: normal appearance of both eyes Neck General: normal visual inspection Lymph Lymphatic: no lymphadenopathy noted and no lymphedema noted Resp normal respiratory effort Cardio regular rate and regular rhythm Extremity no calf tenderness Extremity Narrative: Right Lower Extremity: Vascular: DP and PT pulses palpable. CFT < 4 seconds to digits. Normal temperature gradient. Hair growth present to digits. Neurologic: Protective sensation absent secondary to diabetic peripheral polyneuropathy Musculoskeletal: Muscle strength 5/5 and age appropriate. No pain to palpation to calf. No pain to palpation about traumatic amputation site of the Right Hallux. Dermatologic: There is a traumatic amputation noted to the Right Hallux with missing distal phalanx and exposure of bone with fragments noted to the proximal phalanx head secondary to dog bite/chewing foot. There is bleeding appreciated to the digit with significant destruction of the tissue distally. Healthy margin is appreciated to the proximal 1st metatarsophalangeal joint. Skin no rashes or lesions noted Neuro moves all extremities Results Lab / Micro Data 11/01/24 07:46 11/01/24 07:46 Labs: Laboratory Results - last 24 hr 11/01/24 07:46: WBC 7.0, RBC 4.63, Hgb 14.8, Hct 41.0, MCV 88.6, MCH 32.0, MCHC 36.1 H, RDW Std Deviation 39.0, RDW Coeff of Daniella 12.2, Plt Count 222, MPV 9.6, Immature Gran % (Auto) 0.300, Neut % (Auto) 57.0, Lymph % (Auto) 33.4, Rankin % (Auto) 6.1, Eos % (Auto) 2.9, Baso % (Auto) 0.3, Absolute Neuts (auto) 4.0, Absolute Lymphs (auto) 2.34, Nucleated RBC % 0, Sodium 135, Potassium 4.2, Chloride 99, Carbon Dioxide 24.9, Anion Gap 11, BUN 15, Creatinine 0.84, Estim Creat Clear Calc 57.74, Est GFR (MDRD) Non-Af 80, BUN/Creatinine Ratio 18.0, Glucose 524 H*, Calcium 9.8 Imaging Radiology Impression Toe X-Ray 11/01/24 07:50 IMPRESSION: Partial amputation of the right 1st toe is seen, also with markedly comminuted fracture involving the distal portion of the proximal phalanx. A small portion of the distal phalanx may be present, well. No radiopaque foreign body is clearly evident at this time. Reading Location: [address] Assessment & Plan Assessment/Plan (1) Amputation of great toe, right, traumatic: (2) Non-pressure chronic ulcer of other part of right foot with necrosis of bone: (3) Type 2 diabetes mellitus with diabetic polyneuropathy: PLAN: Plan Patient seen and evaluated. Reviewed case and images with Dr. Shelby this morning as patient was in ED. She was started on IV antibiotics. Radiographs reviewed demonstrating partial traumatic amputation with open fracture of the proximal phalanx secondary to dog bite injury. Labs reviewed prior to surgery. Reviewed images of tissue destruction which is significant to the distal portion of the Right Hallux. Reviewed laboratory data with no elevated white count. There is elevated neutrophils secondary to acute tissue injury. She does have hyperglycemia with sugars over 500mg/dL. Patient does have significant neuropathy due to inability to feel the bites. I did discuss with patient and surgical amputation procedure in detail today. Discussed typical post-operative period. Discussed risks and complications of procedure. Discussed risks include but not limited to the following: Pain, Continued pain, Complex Regional Pain Syndrome, Phantom pain, bleeding, neuritis/numbness, infection, need for further surgery/additional procedure, dehiscence, delayed healing/nonhealing, transfer lesions, digital deviation, deformity, poor cosmetic result, scarring, swelling, difficulty wearing shoe gear, inability to wear shoe gear, addiction to pain medication, stroke, heart attack, blood clot, loss of function, loss of limb, loss of life. Patient and are understanding of these and able to repeat them back. Consent for procedure signed at patients own free will. She is understanding of the need for immediate amputation of the Right Hallux due to this injury and high risk of infection. She is currently NPO and will undergo Right Hallux Amputation today at 11AM Hospitalist did evaluate for management. Patient does have medications at the pharmacy and glucometer at home and is medically stable for discharge. I am in agreement with this plan and following surgery she may be discharged home. Recommend surgical shoe or short CAM boot for ambulatory purposes following discharge. Andrew Gaines Jr., [facility] [phone]
--- NOTE | 2024-11-01 10:27 | PCM.PRE.AN2 ---
ASA Classification* ASA Classification ASA Classification: 3 and E Assessment & Plan Anesthesia* Anesthesia Assessment Anesthesia Assessment: Discussed sedation and/or anesthesia options, risks, benefits, and alternatives with patient/parents/legal guardian/POA. Questions invited. The patient/parents/legal guardian/POA seems to understand and agrees to proceed with anesthesia plan. Reviewed the physical assessment, medical history, allergy history and patient home medications list prior to surgery/procedure/anesthetic and documented any changes. Performed airway and anesthesia risk assessments. Anesthesia Type Anesthesia Type: General History Source History Obtained from:: Patient, Chart and Significant Other (Spouse present in the room) Anesthesia Focused Assessment* Temperature: 96.9 F Pulse Rate: 67 Blood Pressure: 123/77 Respiratory Rate: 16 Pulse Ox: 98 Oxygen Delivery Method: Room Air Airway Assessment Mouth opens: >3 cm Mallampati Score: II Teeth Condition: Chipped/Broken and Missing Neck Range of motion (ROM): Full ROM Labs Anesthesia Preop lab: CBC WBC, (4.4-11.0) 7.0 K/mm3 Today, 07:46 RBC, (4.2-5.4) 4.63 M/mm3 Today, 07:46 Hgb, (12.0-15.0) 14.8 g/dL Today, 07:46 Hct, (37-47) 41.0 % Today, 07:46 Plt Count, (150-450) 222 K/mm3 Today, 07:46 CHEMISTRY Potassium, (3.3-5.1) 4.2 mmol/L Today, 07:46 Sodium, (133-145) 135 mmol/L Today, 07:46 BUN, (4-19) 15 mg/dL Today, 07:46 Creatinine, (0.70-1.20) 0.84 mg/dL Today, 07:46 Glucose, (70-99) 524 mg/dL H* Today, 07:46 POC Glucose, (70-110) 164 mg/dL H 03/01/19, 06:29 COAG PT, (11.7-14.9) 12.1 SECONDS 05/03/14, 11:42 Pre-Assessment Diagnosis/Proposed Procedure Planned Operative Procedure(s): Right hallux amputation Anesthesia History Anesthesia History - basket person: Anesthesia History - basket person Hx Hospitalization No 01/31/20 12:10 Any Problems With Anesthesia No 03/06/19 09:45 Cholinesterase deficiency You/Your Family Experience fever (hyperthermia) with Relationship Recent Exposure to Contagious Disease Does patient have nerve No 03/06/19 09:45 stimulator Patient instructed to have device shut off --Does patient have Pacemaker No 11/01/24 10:22 or ICD? When Was Last Pacemaker Check QUESTION #4 FULL TEXT: You/Your Family Experience fever (hyperthermia) with Anesthesia Last Oral Intake Last Oral intake: Last Oral Intake NPO since 00:00 11/01/24 10:22 Meds taken in AM with sips of No 11/01/24 10:22 water? Meds patient instructed to take am of surgery PONV PONV - basket person: PONV - basket person Female HX of Motion Sickness HX of N/V After Surgery Non-Smoker Duration of Surgery greater than 60 minutes Number of Risk Factors PONV Score Height & Weight Height & Weight: Anesthesia: Height & Weight Height 5 ft 1 in 11/01/24 10:22 Weight: 52.163 kg 11/01/24 10:22 Body Mass Index (BMI) 21.7 11/01/24 10:22 Respiratory Assessment Respiratory Assessment - basket person: Respiratory Tract Infection Hx - basket person Hx Respiratory Tract Infection No 03/06/19 09:45 STOP Sleep Apnea STOP Sleep Apnea - basket person: STOP Sleep Apnea - basket person Hx Hypertension Yes 03/08/19 12:10 Hx Sleep Apnea No 03/08/19 12:10 CPAP BIPAP Do you snore loudly (louder than talking or can be heard Do you often feel tired/ fatigued/ sleepy during daytime? Has anyone observed you stop breathing during sleep? STOP Results QUESTION #5 FULL TEXT : Do you snore loudly (louder than talking or can be heard through closed doors)? 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 Specify any problems Hx of Preganancy in last 3 Months Nurse Filling Out Transfusion & Questions: Date: Time: Patient unable to answer at this time (ie. confused, unrespo /Reproduction History /Reproductive History - basket person: /Reproductive Hx- basket person Hx Now Gestational Age (in weeks): EDC: Hx Hx Para Hx Section SAB Active Medications Active Medications: Current Medications Generic Name Dose Route Start Last Admin Trade Name Freq PRN Reason Stop Dose Admin Sodium Chloride 1,000 mls @ 100 mls/hr 11/01/24 08:40 IV .Q10H [facility] PFSH Medical History Diabetes Home Medications ?Medication ?Instructions ?Recorded ?Last Taken ?Type citalopram 40 mg tablet 40 mg PO QHS Depression/Anxiety 02/26/19 02/25/19 22:00 History 40 mg glipizide 5 mg tablet 5 mg PO DAILY DM 02/26/19 02/26/19 08:00 History 5 mg insulin detemir U-100 100 unit/mL 20 units subcut QHS DM 02/26/19 02/25/19 22:00 History (3 mL) subcutaneous pen 20 units lisinopril 2.5 mg tablet 2.5 mg PO QHS BP 02/26/19 02/25/19 22:00 History 2.5mg metformin 500 mg tablet 500 mg PO BID DM 02/26/19 02/26/19 08:00 History 500 mg pravastatin 10 mg tablet 10 mg PO QHS Cholesterol 02/26/19 02/25/19 22:00 History 10 mg Allergy/AdvReac Type Severity Reaction Status Date / Time Sulfa (Sulfonamide Allergy Rash Verified 11/01/24 10:09 Antibiotics) Surgical History History of laminectomy Social History Smoking Status: Current every day smoker tobacco type: cigarettes Review of Systems (Anesthesia) ROS Narrative System reviewed and no additional complaints, except as documented.
[2024-11-01] MEDS: Lidocaine 1% (30 ml sdv) 30 ML Vial (10:50)
--- NOTE | 2024-11-01 10:50 | RAD_ITS ---
PROCEDURE: TOE(S) MIN 2 VIEWS 11/01/2024 REASON FOR EXAM: AMPUTATION TECHNIQUE: Procedure Code: RADTO Modality: DX Procedure: TOE(S) MIN 2 VIEWS Laterality: Right COMPARISON: Right toe study dated 11/01/2024 FINDINGS: There has been amputation of the 1st digit including the proximal and distal phalanxes. Soft tissue swelling is noted. The remaining osseous structures visualized appear to be intact without evidence of fracture or osseous destructive process. RAD/Toe(s) Min 2 Views IMPRESSION: There has been amputation of the 1st digit. Reading Location: [id number]
--- NOTE | 2024-11-01 11:00 | AMP_PTH ---
PATIENT: RUSTY SINGH LOC: MS3 U#:[id number] AGE/SX: 59/F ROOM: ND321 RE11/01/[address]: Dr. Andrew Gaines DPM : 1965 BED: 1 DIS: 11/01/2024 SPEC #: [id number] RECD: 11/01/24 12:37 STATUS: JESSICA REJoycelyn #: [id number] TERENCE: 11/01/24 11:[address]: Andrew Gaines DEPT: SURGICAL PATHOLOGY RECD BY: Freddie Dorman ENTERED: 11/01/24 13:39 SP TYPE: Amputation OTHR DR: Dr. 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 Toe, hallux, right, amputation, traumatic: * Fatty bone marrow with hemorrhage and focal acute inflammation, suggestive of osteomyelitis. * Aute inflammation of paracortical fibrofatty soft tissue. MICROSCOPIC DESCRIPTION Slides are reviewed. GROSS DESCRIPTION A. Received in formalin labeled with the patient's name and date of . Designated as right hallux is a 4.4 x 3.9 x 2.4 cm partial digit surfaced by barreto, skin with irregular, defects with jagged borders and protruding, red-purple soft tissue. The surgical margin displays barreto-white glistening bone and is inked black. Sectioning reveals barreto-yellow trabeculated and congested medullary bone. A territory service representative, full-thickness cross-section is submitted in 2 cassettes, following decalcification. IN 11/01/2024 CPT:[id number]
[2024-11-01] MEDS: Midazolam 2 MG/2 ML Syringe IV (11:21)
[2024-11-01] MEDS: 0.9% Normal Saline (1000mL) 800 ML IV (11:56)
[2024-11-01] MEDS: fentaNYL 100 MCG/2 ML Ampul 150 MCG IV (12:05)
--- NOTE | 2024-11-01 12:21 | PCM.POST.ANE ---
Anesthesia: Postop Eval I Current Vital Signs Temperature: 97 F Pulse Rate: 85 Blood Pressure: 103/68 Respiratory Rate: 16 Pulse Ox: 97 Oxygen Delivery Method: Room Air Assessment Airway patent: Yes Spontaneous unlabored respirations: Yes Mental status: Awake and Calm nausea: No Vomiting: No Anesthesia Complication: No Fluid Hydration Crystalloid volume administer (ml): 800 Total IV fluid infused: 800 Progress Note Anesthesia document: Postop Eval 1 completed: Yes
--- NOTE | 2024-11-01 12:43 | PCM.OPRPT ---
Operative Report (Standard) Operative Information Date of Procedure: 11/01/24 Pre-Operative Diagnosis: 1. Traumatic Amputation of the Right Hallux 2. Uncontrolled Diabetes mellitus type II Post-Operative Diagnosis: 1. Traumatic Ambulation of the Right Hallux 2. Uncontrolled Diabetes mellitus type II Surgery/Procedure Performed: 1. 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 Type of Anesthesia: Local (10 cc 1:1 mixture of 1% lidocaine plain and 0.5% Marcaine plain) and MAC RN Documented Start/Stop Times: Operation Date: 11/01/24 11:00 Case Time Into Pre-Op 11/01/24 10:00 Out of Pre-Op 11/01/24 11:10 Anesthesia Start 11/01/24 11:21 Into Room 11/01/24 11:21 Procedure Start 11/01/24 11:48 Procedure End 11/01/24 12:10 Anesthesia End 11/01/24 12:17 Out of Room 11/01/24 12:17 Into Recovery 11/01/24 12:20 Out of Recovery 11/01/24 13:18 Procedure Start Time: 11:48 Procedure Stop Time: 12:10 Select all DRAINS/GRAFTS/IMPLANTS that apply: None Estimated Blood Loss: < 3mL Specimen collected: Yes Description of specimen(s) removed: Tissue Right Hallux to micro, Right Hallux to pathology Description of surgery: HPI/Indication: This is a 59 F who presents to [facility] following Right Hallux traumatic injury. She reports trimming nail and delveloping wound to the Right Hallux earlier in the week. Reports that overnight/manager mobility that her dog must have chewed her toe off because she awoke to a mangled digit with bone sticking out and profuse bleeding. She immediately reported to the ED for further evaluation. ED physician Dr. Shelby evaluated patient and reached out to me for immediate consultation/surgical intervention. Labs were obtained in addition to radiographs in anticipation of surgical intervention this morning. I did discuss with patient and surgical amputation procedure in detail today. Discussed typical post-operative period. Discussed risks and complications of procedure. Discussed risks include but not limited to the following: Pain, Continued pain, Complex Regional Pain Syndrome, Phantom pain, bleeding, neuritis/numbness, infection, need for further surgery/additional procedure, dehiscence, delayed healing/nonhealing, transfer lesions, digital deviation, deformity, poor cosmetic result, scarring, swelling, difficulty wearing shoe gear, inability to wear shoe gear, addiction to pain medication, stroke, heart attack, blood clot, loss of function, loss of limb, loss of life. Patient and are understanding of these and able to repeat them back. Consent for procedure signed at patients own free will. She is understanding of the need for immediate amputation of the Right Hallux due to this injury and high risk of infection. She was kept NPO and will undergo Right Hallux Amputation today at 11AM Procedure: Under mild sedation patient was brought into the operating room and placed on the table in the supine position. Patient was secured to table with safety belt. Following induction of IV anesthesia a pneumatic tourniquet was placed about the patient's right ankle. The foot was then scrubbed, prepped, and draped in the usual aseptic manner. The right foot was exsanguinated and the Esmarch bandage, elevated, and the pneumatic ankle tourniquet was inflated to 250mmgH. At this time attention was directed to the Right foot where utilizing fluoroscopy the Right Hallux was marked for incision and to demonstrate tissue destruction. There was noted to be significant tissue destruction secondary to dog bite/chewing of the digit with evidence of exposure of the proximal phalanx head and fragmentation of the proximal phalanx bone. Next, a racquet shaped incision was performed with a #15 blade. Incision wad deepened to the level of bone. The first metatarsophalangeal joint was identified and the digit was sharply disarticulated at the level of this joint utilizing a #15 blade. The digit was then passed from the operative field to the table in toto. On the table a tissue sample was obtained and sent to microbiology. The remainder of the ankle was sent to pathology for analysis. There was no purulent drainage or signs of infection noted during the time of the amputation. The extensor hallucis longus tendon was identified and transected as far proximal as possible. The flexor hallucis longus tendon also identified and transected as far proximal as possible. The first metatarsal head was inspected and noted to be healthy appearing. Remainder of the surrounding soft tissues was healthy in appearance. Site was then flushed with copious amounts of normal sterile saline. Final Flouroscopic imaging was obtained demonstrating amputation of the Right Hallux. Deep tissues were then closed utilizing 4-0 Vicryl. Subcutaneous tissues closed utilizing 4-0 Monocryl. Skin was reapproximated utilizing 3-0 Prolene in simple interrupted fashion. Pneumatic Ankle tourniquet was deflated and a prompt hyperemic response was noted to the remaining digits of the right foot. Incision site was then dressed with Adaptic, 4 x 4 gauze, Kerlix, 4 inch Lopez wrap rolled onto the right foot. Patient tolerated the anesthesia and procedure well. She was then transferred to the PACU with vital signs stable and vascular status intact to the right foot. Patient is instructed to keep dressings clean, dry, and intact to the right foot. She is to elevate right foot at all times of rest for postoperative edema control. Patient may ambulate in surgical shoe for a short CAM boot following intervention. She was instructed to follow all instructions to keep postoperative appointments with me in the office upon her discharge. Hospitalist did evaluate for management. Patient does have medications at the pharmacy and glucometer at home and is medically stable for discharge. I am in agreement with this plan and following surgery she may be discharged home. Recommend surgical shoe or short CAM boot for ambulatory purposes following discharge. Surgical Findings: See operative note for findings Complications Complications: No Admit VTE Documentation VTE Present on Admission: No VTE Mechan Device Prophylaxis: SCD's VTE Pharm Prophylaxis ordered?: No Reason prophylaxis not ordered: Treatment Not Indicated
--- NOTE | 2024-11-01 14:39 | PCM.CONS.GEN ---
Assessment & Plan Assessment/Plan (1) Type 2 diabetes mellitus with diabetic polyneuropathy: PLAN: Patient is on glipizide metformin chronically as outpatient and continue those upon discharge. Patient has recent been prescribed insulin, unknown dose as well as a continuous glucose monitor. Patient to continue with those and continue working with her primary care doctor for diabetes management. While she is here in the hospital, we will give her glargine 10 units daily, sliding scale insulin. Check an A1c. As patient already has the supplies at home, patient can be discharged from medical standpoint. PLAN: Plan Traumatic amputation of the right great toe. Patient's dog had chewed off. Patient had a complete amputation of her right great toe by Dr. Gaines. Management per podiatry. Diabetic neuropathy: Complicates care and recovery. Patient medically stable for discharge. Will follow along while the patient is here. HPI Consult Data Date of Consult: 11/01/24 HPI Narrative Reason for Consultation: Comes requested by Dr. Gaines for diabetes management. HPI Narrative: RUSTY SINGH, is a 59 F who presents after getting up noting blood on the floor. Did been found that part of her right great toe had been chewed off by her dog. Presented to the emergency room and x-ray confirmed partial imitation of the right first toe seen. With markedly comminuted fracture involving the distal portion of the proximal phalanx. Patient was taken to surgery and had amputation of her right great toe. Is noted that patient's blood sugars were in the 400s when she arrived. Patient is on glipizide as well as metformin. She has been ordered insulin as well as a continuous glucose monitor which is at her pharmacy but yet to be picked up. [facility] Medical History (Updated 11/01/24 @ 14:[address] Josh Cole, DO) Diabetic neuropathy Diabetes Home Medications ?Medication ?Instructions ?Recorded ?Last Taken ?Type citalopram 40 mg tablet 40 mg PO QHS Depression/Anxiety 02/26/19 02/25/19 22:00 History 40 mg glipizide 5 mg tablet 5 mg PO DAILY DM 02/26/19 02/26/19 08:00 History 5 mg insulin detemir U-100 100 unit/mL 20 units subcut QHS DM 02/26/19 02/25/19 22:00 History (3 mL) subcutaneous pen 20 units lisinopril 2.5 mg tablet 2.5 mg PO QHS BP 02/26/19 02/25/19 22:00 History 2.5mg metformin 500 mg tablet 500 mg PO BID DM 02/26/19 02/26/19 08:00 History 500 mg pravastatin 10 mg tablet 10 mg PO QHS Cholesterol 02/26/19 02/25/19 22:00 History 10 mg Allergy/AdvReac Type Severity Reaction Status Date / Time Sulfa (Sulfonamide Allergy Rash Verified 11/01/24 10:09 Antibiotics) Surgical History History of laminectomy Social History Smoking Status: Current every day smoker tobacco type: cigarettes ROS ROS Narrative Numb in her feet bilaterally. All review of systems were negative except as mentioned above in the history of present illness and the other review of systems. Physical Exam Const alert and no apparent distress HEENT normocephalic and head/scalp atraumatic Resp normal respiratory effort, no retractions, no use of accessory muscles and clear to auscultation bilaterally Cardio regular rate, regular rhythm, S1 normal heart sound and S2 normal heart sound GI normal to inspection, nondistended, normoactive bowel sounds, soft to palpation, non-tender and non-distended Extremity Extremity Narrative: Right foot bandaged. Absent right great toe. Lab / Micro Data 11/01/24 07:46 11/01/24 07:46 Labs: Laboratory Results - last 24 hr 11/01/24 07:46: WBC 7.0, RBC 4.63, Hgb 14.8, Hct 41.0, MCV 88.6, MCH 32.0, MCHC 36.1 H, RDW Std Deviation 39.0, RDW Coeff of Daniella 12.2, Plt Count 222, MPV 9.6, Immature Gran % (Auto) 0.300, Neut % (Auto) 57.0, Lymph % (Auto) 33.4, Bath % (Auto) 6.1, Eos % (Auto) 2.9, Baso % (Auto) 0.3, Absolute Neuts (auto) 4.0, Absolute Lymphs (auto) 2.34, Nucleated RBC % 0, Sodium 135, Potassium 4.2, Chloride 99, Carbon Dioxide 24.9, Anion Gap 11, BUN 15, Creatinine 0.84, Estim Creat Clear Calc 57.74, Est GFR (MDRD) Non-Af 80, BUN/Creatinine Ratio 18.0, Glucose 524 H*, Calcium 9.8 11/01/24 10:19: POC Glucose 496 H* 11/01/24 12:23: POC Glucose 431 H Imaging Radiology Impression Toe X-Ray 11/01/24 07:50 IMPRESSION: Partial amputation of the right 1st toe is seen, also with markedly comminuted fracture involving the distal portion of the proximal phalanx. A small portion of the distal phalanx may be present, well. No radiopaque foreign body is clearly evident at this time. Reading Location: [id number] Charges/Coding Visit Charges Office Visits / Consults: 81429 ED Visit; Low/Mod Severity
[2024-11-01] MEDS: 0.9% Normal Saline (1000mL) 1,000 ML 100 ML IV (14:50)
--- NOTE | 2024-11-01 15:45 | POSTOPAN2_ITS ---
Anesthesia Postop Eval I Sum Postop Eval Completion status Anesthesia document: Postop Eval 1 completed: Yes Anesthesia Postop Eval I Summary Anesthesia Postop Eval I Summary: Anesthesia Postop Eval I: Assessment Summary Airway patent Yes 11/01/24 12:22 CONCRETE PUMP OPERATOR HELPER.MDOT Spontaneous unlabored Yes 11/01/24 12:22 CONCRETE PUMP OPERATOR HELPER.MDOT respirations Mental status Awake,Calm 11/01/24 12:22 CONCRETE PUMP OPERATOR HELPER.MDOT nausea No 11/01/24 12:22 CONCRETE PUMP OPERATOR HELPER.MDOT Vomiting No 11/01/24 12:22 CONCRETE PUMP OPERATOR HELPER.MDOT Anesthesia Postop Eval I: Fluid Summary Crystalloid volume administer 800 11/01/24 12:22 CONCRETE PUMP OPERATOR HELPER.MDOT (ml) Colloids volume administered ( ml) Blood Product volume administered (ml) Total IV fluid infused 800 11/01/24 12:22 CONCRETE PUMP OPERATOR HELPER.MDOT Anesthesia Postop Eval I: Summary Notes Anesthesia Complication No 11/01/24 12:22 CONCRETE PUMP OPERATOR HELPER.MDOT Anesthesia Complication Comment: Post-operative progress note Anesthesia: Postop Eval II Evaluation Mental status: Awake and Calm Pain Level: 1 nausea: No Vomiting: No Complications Anesthesia Complication: No
--- NOTE | 2024-11-01 15:45 | PCM.POSTANE2 ---
Anesthesia Postop Eval I Sum Postop Eval Completion status Anesthesia document: Postop Eval 1 completed: Yes Anesthesia Postop Eval I Summary Anesthesia Postop Eval I Summary: Anesthesia Postop Eval I: Assessment Summary Airway patent Yes 11/01/24 12:22 SHOT CORE DRILL OPERATOR.MDOT Spontaneous unlabored Yes 11/01/24 12:22 SHOT CORE DRILL OPERATOR.MDOT respirations Mental status Awake,Calm 11/01/24 12:22 SHOT CORE DRILL OPERATOR.MDOT nausea No 11/01/24 12:22 SHOT CORE DRILL OPERATOR.MDOT Vomiting No 11/01/24 12:22 SHOT CORE DRILL OPERATOR.MDOT Anesthesia Postop Eval I: Fluid Summary Crystalloid volume administer 800 11/01/24 12:22 SHOT CORE DRILL OPERATOR.MDOT (ml) Colloids volume administered ( ml) Blood Product volume administered (ml) Total IV fluid infused 800 11/01/24 12:22 SHOT CORE DRILL OPERATOR.MDOT Anesthesia Postop Eval I: Summary Notes Anesthesia Complication No 11/01/24 12:22 SHOT CORE DRILL OPERATOR.MDOT Anesthesia Complication Comment: Post-operative progress note Anesthesia: Postop Eval II Evaluation Mental status: Awake and Calm Pain Level: 1 nausea: No Vomiting: No Complications Anesthesia Complication: No
--- NOTE | 2024-11-01 16:07 | DS.PCM_ITS ---
Providers Primary Care Physician: Dr. Felix Mccray MD Consultations 11/01/24 11:11 Consult: Hospitalist Routine Consulting Provider: Josh Cole Reason for Consult: diabetic management EMERGENT Consult: No Notified: Yes Date Notified: 11/01/24 Time Notified: 11:11 Method of Notification: Text 11/01/24 12:58 Consult: Hospitalist Routine Consulting Provider: Josh Cole Reason for Consult: Hyperglycemia/Uncontrolled DM type II EMERGENT Consult: No Notified: Yes Date Notified: 11/01/24 Time Notified: 11:19 Method of Notification: Text Reason For Visit: AMPUTATION OF RIGHT GREAT TOE Diagnosis Discharge Diagnosis (1) Amputation of great toe, right, traumatic: Status: Acute Code(s): S98.111A - Complete traumatic amputation of right great toe, initial encounter (2) Non-pressure 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 Reviewed case and images with Dr. Shelby this morning as patient was in ED. She was started on IV antibiotics. Radiographs reviewed demonstrating partial traumatic amputation with open fracture of the proximal phalanx secondary to dog bite injury. Labs reviewed prior to surgery. Reviewed images of tissue destruction which is significant to the distal portion of the Right Hallux. Reviewed laboratory data with no elevated white count. There is elevated neutrophils secondary to acute tissue injury. She does have hyperglycemia with sugars over 500mg/dL. Patient does have significant neuropathy due to inability to feel the bites. I did discuss with patient and surgical amputation procedure in detail today. Discussed typical post-operative period. Discussed risks and complications of procedure. Discussed risks include but not limited to the following: Pain, Continued pain, Complex Regional Pain Syndrome, Phantom pain, bleeding, neuritis/numbness, infection, need for further surgery/additional procedure, dehiscence, delayed healing/nonhealing, transfer lesions, digital deviation, deformity, poor cosmetic result, scarring, swelling, difficulty wearing shoe gear, inability to wear shoe gear, addiction to pain medication, stroke, heart attack, blood clot, loss of function, loss of limb, loss of life. Patient and are understanding of these and able to repeat them back. Consent for procedure signed at patients own free will. She is understanding of the need for immediate amputation of the Right Hallux due to this injury and high risk of infection. She is currently NPO and will undergo Right Hallux Amputation today at 11AM Hospitalist did evaluate for management. Patient does have medications at the pharmacy and glucometer at home and is medically stable for discharge. I am in agreement with this plan and following surgery she may be discharged home. Recommend surgical shoe or short CAM boot for ambulatory purposes following discharge. Andrew Gaines Jr., [facility] [phone] Medications at Discharge Home Medications citalopram 40 mg tablet 40 mg PO QHS Depression/Anxiety 02/26/19 glipizide 5 mg tablet 5 mg PO DAILY DM 02/26/19 insulin detemir U-100 100 unit/mL (3 mL) subcutaneous pen 20 units subcut QHS DM 02/26/19 lisinopril 2.5 mg tablet 2.5 mg PO QHS BP 02/26/19 metformin 500 mg tablet 500 mg PO BID DM 02/26/19 pravastatin 10 mg tablet 10 mg PO QHS Cholesterol 02/26/19 doxycycline hyclate 100 mg capsule 100 mg PO BID 14 days #28 caps 11/01/24 oxycodone-acetaminophen 5 mg-325 mg tablet 1 tab PO Q6H PRN pain 7 days #28 tabs 11/01/24 Hospital Course Operations - (Amputation of the right hallux) Procedures - (Right Hallux Amputation) Summary of Care Provided Hospital Course: Patient was seen in the ER this collector of port of 11/01/2024 and was noted to have traumatic partial amputation of the right hallux secondary to a dog that the toe. She did undergo the necessary lab work and radiographs which were all reviewed prior to emergent surgery earlier this morning at 11 AM. Patient did undergo successful mutation of the right hallux and has been cleared by hospitalist and myself for discharge home. She was encouraged to take her insulin as instructed continue to monitor sugars with her home glucometer. She was encouraged to return to follow with her PCP or establish an vertical lathe operator to aid in continued diabetic management. She is understanding of this. She was instructed to follow in office with me for continued diabetic foot check and post-operative care. She will call office as stated below. Physical Exam Const alert, oriented x3 and no apparent distress General Appearance: cooperative HEENT normocephalic Eyes General Eye: normal appearance of both eyes Neck General: normal visual inspection Lymph Lymphatic: no lymphadenopathy noted and no lymphedema noted Resp normal respiratory effort Cardio regular rate and regular rhythm Extremity no calf tenderness Extremity Narrative: Right Lower Extremity: Vascular: DP and PT pulses palpable. CFT < 4 seconds to digits. Normal temperature gradient. Hair growth present to digits. Neurologic: Protective sensation absent secondary to diabetic peripheral polyneuropathy Musculoskeletal: Muscle strength 5/5 and age appropriate. No pain to palpation to calf. Right Hallux Amputation appreciated. Dermatologic: Amputation of the Right Hallux with sutures intact. Surgical dressings in place consisting of betadine soaked soaked Adaptic, 4 x 4 gauze, Kerlix, and 4 inch Lopez wrap. Skin no rashes or lesions noted Neuro moves all extremities Weight / BMI Weight Weight: 52.1 kg Body Mass Index (BMI) 21.7 ABG / Lab / Microbiology Data 11/01/24 07:46 11/01/24 07:46 Laboratory: Laboratory Results - last 24 hr 11/01/24 07:46: WBC 7.0, RBC 4.63, Hgb 14.8, Hct 41.0, MCV 88.6, MCH 32.0, MCHC 36.1 H, RDW Std Deviation 39.0, RDW Coeff of Daniella 12.2, Plt Count 222, MPV 9.6, Immature Gran % (Auto) 0.300, Neut % (Auto) 57.0, Lymph % (Auto) 33.4, Williams % (Auto) 6.1, Eos % (Auto) 2.9, Baso % (Auto) 0.3, Absolute Neuts (auto) 4.0, Absolute Lymphs (auto) 2.34, Nucleated RBC % 0, Sodium 135, Potassium 4.2, Chloride 99, Carbon Dioxide 24.9, Anion Gap 11, BUN 15, Creatinine 0.84, Estim Creat Clear Calc 57.74, Est GFR (MDRD) Non-Af 80, BUN/Creatinine Ratio 18.0, G lucose 524 H*, Calcium 9.8 11/01/24 10:19: POC Glucose 496 H* 11/01/24 12:23: POC Glucose 431 H Radiography Diagnostic Testing: Radiology Impression Toe X-Ray 11/01/24 07:50 IMPRESSION: Partial amputation of the right 1st toe is seen, also with markedly comminuted fracture involving the distal portion of the proximal phalanx. A small portion of the distal phalanx may be present, well. No radiopaque foreign body is clearly evident at this time. Reading Location: [id number] Instructions Discharge Activity: May Shower (Please utilize cast bag covering when showering to keep dressings clean, dry, and intact to the right foot) Weight Bearing Status: Partial weight bearing (Patient may be ambulating in a surgical shoe or cam boot to tolerance) Keep extremity elevated above heart level: Right Leg (Elevate right lower extremity and rest postoperative edema control) Call your doctor if you observe: Fever of 101 or Higher, Shortness of breath, Chest pain and Calf discomfort Change Dressing in: do not change dressing Remove Dressing in: leave in place till F/U (Do not change dressing. Physician will change dressing at first postop appointment. Keep dressing clean, dry, and intact to right foot) Cleanse incision/area with: Do not get Incision Wet and Keep Dressing Clean & Dry (Dressing clean, dry, and intact to the right foot) DC O2, CPAP, BIPAP Needs Home O2 Discharge instructions: No DC home with Oxygen: No Please Follow Up With: Andrew Gaines DPM When: She will follow in office for post-op appointment next week. Patient to call office on Monday morning at [phone] Meaningful Use Info Meaningful Use Meaningful Use Diagnoses (Choose all that apply): None applicable Discharge Plan Admission Attending Provider: Andrew Gaines Primary Care Provider: Felix Mccray Consulting Providers: Josh Cole Instructions Print Language: Austrian Discharge Orders/Prescriptions Prescriptions: New doxycycline hyclate 100 mg capsule 100 mg PO BID 14 Days Qty: 28 0RF oxycodone-acetaminophen 5-325 mg tablet 1 tab PO Q6H PRN (Reason: pain) 7 Days Qty: 28 0RF No Action metformin 500 MG tablet 500 mg PO BID citalopram 40 MG tablet 40 mg PO QHS Patient Comments: TAKE 1 TABLET BY MOUTH EVERY DAY pravastatin 10 MG tablet 10 mg PO QHS Patient Comments: TAKE 1 TABLET BY MOUTH EVERY DAY lisinopril 2.5 MG tablet 2.5 mg PO QHS Patient Comments: TAKE 1 TABLET BY MOUTH EVERY DAY glipizide 5 MG tablet 5 mg PO DAILY Patient Comments: TAKE 1 TABLET BY MOUTH EVERY DAY insulin detemir U-100 100 UNITS/ML insulin pen 20 units subcut QHS Referrals / Follow Up: Felix Mccray MD [Primary Care Provider, Family Practice] Disposition Disposition (needs filled in before D/C Order can be placed): Home, Self Care
--- OUTSIDE RECORDS SUMMARY | 2024-11-01 16:54 | XMS RPT_ITS | CCD ---
Author Organization [facility] Care Team Providers Care Global Compensation Analyst Name Role Phone Malika Hernandez MD Primary Care Provider Malika Hernandez MD Primary Care Provider Tannmis EXECUTIVE OFFICER.Urmila LAKE Unavailable Ayaan EXECUTIVE OFFICERRusty PEREZ Unavailable [phone] Dr. Malika Hernandez MD Primary Care Provider Dr. Tommy Saul DO Emergency Provider Malika Hernandez Primary Care Unavailable Tommy Saul Attending Unavailable MALIKA HERNANDEZ Primary Care Unavailable RUSTY WELCH Referring Unavailable MALIKA HERNANDEZ Primary Care Unavailable RUSTY WELCH Attending Unavailable MALIKA HERNANDEZ Primary Care Unavailable Allergies Allergy Classification Reported Allergen(s) Allergy Type Date of Onset Reaction(s) Facility (16 sources) Cephalexin; Translations: [CEPHALEXIN] Drug Allergy 9 Mental Status Change [facility] (16 sources) Sulfonamides (Antibiotic); Translations: [SULFA (SULFONAMIDE ANTIBIOTICS)] Propensity to adverse reactions 8 [facility] (1 source) Sulfonamides (Antibiotic) Allergy to substance 5 [facility] (1 source) Sulfonamides (Antibiotic) Drug allergy (disorder) 5 [facility] Rep[facility] Medications Current Medications Medication Drug Class(es) Dates Sig (Normalized) Sig (Original) Blood-Glucose Meter monitoring kit (9 sources) Start: 03-27-2023 End: 03-28-2023 Blood-Glucose Meter monitoring kit Indications: Type 2 diabetes mellitus without complication, with long-term current use of insulin (HCC) Glucose Meter of Choice - Kit - Dx: Type 2 DM - Uncontrolled E11.65 1 Each 0 03/27/2023 03/28/2023 Active Start: 09-23-2016 End: 03-27-2023 Blood-Glucose Meter monitori ng kit Indications: Type 2 diabetes mellitus without complication, without long-term current use of insulin (HCC) Glucose Meter of Choice - Kit - Dx: Type 2 DM - Uncontrolled E11.65 1 Each 09/23/2016 03/27/2023 Discontinued Start: 09-23-2016 End: 03-27-2023 Blood-Glucose Meter monitori ng kit Indications: Type 2 diabetes mellitus without complication, without long-term current use of insulin (HCC) Glucose Meter of Choice - Kit - Dx: Type 2 DM - Uncontrolled E11.65 1 Each 0 09/23/2016 03/27/2023 Discontinued Start: 09-23-2016 Blood-Glucose Meter monitoring kit Indications: Type 2 diabetes mellitus without complication, without long-term current use of insulin ([facility]) Glucose Meter of Choice - Kit - Dx: Type 2 DM - Uncontrolled E11.65 1 Each 0 09/23/2016 Active Comment on above: Glucose Meter of Cho ice - Kit - Dx: Type 2 DM - Uncontrolled E11.65 Blood-Glucose Sensor (DEXCOM G7 SENSOR) fabiola (4 sources) Start: Blood-Glucose Sensor (DEXCOM G7 SENSOR) fabiola Indications: Type 2 diabetes mellitus with diabetic polyneuropathy, with long-term current use of insulin ([facility]) 1 each every 2 weeks. 2 each 5 09/10/2024 Active citalopram 40 mg oral tablet (20 sources) Serotonin Reuptake Inhibitor Start: End: take 1 tablet by mouth once daily citalopram (CELEXA) 40 mg tablet Indications: Depression, unspecified depression type , Anxiety Take 1 tablet by mouth once daily. 90 tablet 3 09/10/2024 Active Comment on above: Take 1 tablet by tc once daily. ergocalciferol 1.25 mg oral capsule (1 source) Provitamin D2 Compound Start: Ergocalciferol (Vitamin D2) 50,000 UNIT capsule Active 49583 U PO Q7D 7 March 01, 2019 1:00am glipiZIDE 5 mg oral tablet (19 sources) Sulfonylurea Start: End: 024 take 1 tablet by mouth once daily glipiZIDE (GLUCOTROL) 5 mg tablet Indications: Type 2 diabetes mellitus without complication, with long-term current use of insulin (HCC) Take 1 tablet (5 mg) by mouth once daily. 90 tablet 3 03/27/2023 Active Comment on above: Take 1 tablet by tc th once daily. Take 1 tablet (5 mg) by mouth once daily. 3 ml insulin glargine 100 unt/ml pen injector (13 sources) Insulin Analog Start: End: inject 10 [IU] by subcutaneous injection once daily at bedtime insulin glargine (LANTUS SOLOSTAR U-100 INSULIN) 100 unit/mL (3 mL) Indications: Type 2 diabetes mellitus with diabetic polyneuropathy, with long-term current use of insulin ([facility]) Inject 10 Units subcutaneously daily at bedtime. 3 mL 11 09/17/2024 09/12/2025 Active Start: 09-14-2022 End: 10-14-2022 insulin glargine (LANTUS CATHERINE OSTAR U-100 INSULIN) 100 unit/mL (3 mL) Inject 25 Units subcutaneously daily at bedtime. 8 mL 11 09/14/2022 10/14/2022 Active Start: 09-14-2022 End: 09-10-2024 insulin glargine (LANTUS CATHERINE OSTAR U-100 INSULIN) 100 unit/mL (3 mL) Inject 25 Units subcutaneously daily at bedtime. 8 mL 09/14/2022 09/10/2024 Discontinued (Course of therapy completed) Start: 06-14-2022 End: 09-05-2022 insulin glargine (LANTUS CATHERINE OSTAR U-100 INSULIN) 100 unit/mL (3 mL) Inject 25 Units subcutaneously once daily. 15 mL 06/14/2022 09/05/2022 Discontinued (Course of therapy completed) Start: 09-17-2021 End: 09-14-2022 insulin glargine (BASAGLAR K WIKPEN U-100 INSULIN) 100 unit/mL (3 mL) Indications: Type 2 diabetes mellitus without complication, with long-term current use of insulin (HCC) Inject 25 Units subcutaneously every 24 hours. 3 Each 2 09/05/2022 09/14/2022 Discontinued Comment on above: Inject 25 Units subc utaneously every 24 hours. Inject 25 Units subc utaneously once daily. Inject 25 Units subc utaneously daily at bedtime. lisinopril 2.5 mg oral tablet (20 sources) Angiotensin Converting Enzyme Inhibitor Start: 02-26-19 End: 09-11-19 take 1 tablet by mouth once daily lisinopril 2.5 mg tablet Indications: Type 2 diabetes mellitus with diabetic polyneuropathy, with long-term current use of insulin (HCC) Take 1 tablet by mouth once daily. 90 tablet 3 09/10/2024 Active Comment on above: Take 1 tablet by tc th once daily. 24 hr metFORMIN hydrochloride 500 mg extended release oral tablet (20 sources) Biguanide Start: 09-04-19 End: 09-11-19 take 1 tablet by mouth once daily at breakfast metFORMIN ER (GLUCOPHAGE XR) 500 mg 24 hr tablet Indications: Type 2 diabetes mellitus with diabetic polyneuropathy, with long-term current use of insulin (HCC) TAKE 1 TABLETs BY MOUTH EVERY DAY WITH BREAKFAST 180 tablet 3 09/10/2024 Active Start: 02-26-2019 take 1 tablet by tc th twice daily Metformin 500 MG tablet Active 500 mg PO TWICE A DAY February 26, 2019 1:00am DM Comment on above: TAKE 2 TABLETS BY MO UTH EVERY DAY WITH BREAKFAST oseltamivir 75 mg oral capsule (1 source) Neuraminidase Inhibitor Start: 5 End: 5 take 1 capsule by mouth twice daily oseltamivir (TAMIFLU) 75 mg capsule Take 1 capsule by mouth two times a day for 5 days. 10 capsule 03/18/2024 03/23/2024 Active pravastatin sodium 40 mg oral tablet (20 sources) HMG-CoA Reductase Inhibitor Start: End: 5 take 1 tablet by mouth once daily pravastatin (PRAVACHOL) 40 mg tablet Indications: Hyperlipidemia, mixed Take 1 tablet by mouth once daily. 90 tablet 3 09/10/2024 Active Start: 02-26-2019 take 1 tablet by tc th at bedtime Pravastatin 10 MG tablet Active 10 mg PO AT BEDTIME February 26, 2019 1:00am Cholesterol Comment on above: Take 1 tablet by tc th once daily. Completed/Discontinued Medications Medication Drug Class(es) Dates Sig (Normalized) Sig (Original) acetaminophen 500 mg oral tablet (1 source) Start: 02-28-2019 End: 07-06-2022 take 2 tablets by mouth every eight hours Acetaminophen 500 MG tablet Discontinued 1000 mg PO EVERY 8 HOURS 100 1 February 28, 2019 1:00am July 06, 2022 9:17am apixaban 2.5 mg oral tablet (1 source) Factor Xa Inhibitor Start: 02-28-2019 End: 04-10-2019 take 1 tablet by mouth twice daily Apixaban 2.5 MG tablet Discontinued 2.5 mg PO TWICE A DAY 42 0 February 28, 2019 1:00am April 10, 2019 2:04pm cyclobenzaprine hydrochloride 10 mg oral tablet (4 sources) Muscle Relaxant Start: 09-16-2020 End: 09-17-2021 take 1 tablet by mouth three times daily as needed for muscle spasms cyclobenzaprine (FLEXERIL) 10 mg tablet Indications: Hip pain Take 1 tablet by mouth three times daily as needed for muscle spasm. 40 tablet 09/16/2020 09/17/2021 Discontinued (Course of therapy completed) Comment on above: Take 1 tablet by tc th three times daily as needed for muscle spasm. 3 ml insulin detemir 100 unt/ml pen injector (6 sources) Insulin Analog Start: 09-03-2020 End: 09-17-2021 insulin detemir U-100 (LEVEMIR FLEXTOUCH U-100 INSULIN) 100 unit/mL (3 mL) injection pen Indications: Type 2 diabetes mellitus without complication, without long-term current use of insulin (HCC) Inject 25 Units subcutaneously daily at bedtime. 6 Pen 2 09/03/2020 09/08/2021 Discontinued Start: 02-26-2019 Insulin Detemi r U-100 100 UNITS/ML insulin pen Active 20 U SC AT BEDTIME February 26, 2019 1:00am DM Comment on above: Inject 25 Units subc utaneously daily at bedtime. 2 ml ketorolac tromethamine 30 mg/ml injection (1 source) Nonsteroidal Anti-inflammatory Drug, Cyclooxygenase Inhibitor Start: 09-17-19 End: 09-17-19 keTORolac 60 mg injection (TORADOL) meloxicam 15 mg oral tablet (1 source) Nonsteroidal Anti-inflammatory Drug Start: 04-10-19 End: 07-07-19 take 1 tablet by mouth once daily Meloxicam (Mobic) 15 mg tablet Discontinued 15 mg PO DAILY 30 April 10, 2019 1:00am July 06, 2022 9:17am Do not take with other NSAIDs oxyCODONE hydrochloride 5 mg oral tablet (1 source) Opioid Agonist Start: 02-28-19 End: 04-10-19 take 5-10 mg by mouth every four hours as needed for pain Oxycodone 5 MG tablet Discontinued 5 - 10 mg PO EVERY 4 HOURS NEEDED as needed for Pain Score 4-10/10 60 0 February 28, 2019 April 10, 2019 2:04pm Other acute postprocedural pain terbinafine 250 mg oral tablet (3 sources) Allylamine Antifungal Start: 09-06-19 End: 03-27-19 take 1 tablet by mouth once daily terbinafine HCl (LAMISIL) 250 mg tablet Indications: Onychomycosis Take 1 tablet by mouth once daily. 84 tablet 0 09/05/2022 03/27/2023 Discontinued (Course of therapy completed) Comment on above: Take 1 tablet by tc once daily. Problems Active Problems Problem Classification Problem Date Documented Date Episodic/Chronic Anxiety disorders (20 sources) Anxiety; Translations: [Anxiety disorder, unspecified] Onset: 09-23-2016 09-23-2016 Chronic Diabetes mellitus with complications (10 sources) Type 2 diabetes mellitus; Translations: [Type 2 diabetes mellitus with unspecified complications] Onset: 09-17-2021 Chronic Diabetes mellitus without complication (11 sources) Type 2 diabetes mellitus without complication; Translations: [Type 2 diabetes mellitus without complications] Onset: 09-17-2021 Chronic Disorders of lipid metabolism (20 sources) Mixed hyperlipidemia; Translations: [Mixed hyperlipidemia] Onset: 09-23-2016 09-23-2016 Chronic Essential hypertension (19 sources) Essential hypertension; Translations: [Essential (primary) hypertension] Onset: 09-23-2016 09-23-2016 Chronic Fracture of neck of femur (hip) (1 source) Displaced intertrochanteric fracture of left femur, initial encounter for closed fracture; Translations: [Intertrochanteric fracture of left femur] 03-08-2019 Episodic Immunizations and screening for infectious disease (1 source) Needs influenza immunization; Translations: [Encounter for immunization] 03-27-2023 Episodic Influenza (1 source) Influenza due to Influenza A virus; Translations: [Influenza due to other identified influenza virus with other respiratory manifestations] 03-18-2024 Episodic Mood disorders (19 sources) Depressive disorder; Translations: [Depression] Onset: 09-23-2016 09-23-2016 Chronic Mood disorders (1 source) Mood disorders; Translations: [Depression, unspecified depression type] Onset: 09-23-2016 Mycoses (1 source) Onychomycosis; Translations: [Tinea unguium] 09-05-2022 Episodic Nonspecific chest pain (1 source) Other chest pain; Translations: [Other chest pain] Onset: 10-02-2024 Episodic Other non-traumatic joint disorders (1 source) Hip pain; Translations: [Pain in unspecified hip] 09-16-2020 Episodic Other screening for suspected conditions (not mental disorders or infectious disease) (9 sources) Patient encounter status; Translations: [Encounter for screening mammogram for malignant neoplasm of breast] Onset: 09-10-2024 Episodic Other upper respiratory infections (1 source) Acute upper respiratory infection; Translations: [Acute upper respiratory infection, unspecified] 03-18-2024 Episodic Unclassified (15 sources) Type 2 diabetes mellitus without complication; Translations: [Diabetes mellitus type 2, uncontrolled, without complications] Onset: 09-28-2016 09-28-2016 Unclassified (1 source) Patient encounter status 09-10-2024 Past or Other Problems Problem Classification Problem Date Documented Da te Episodic/Chronic Other aftercare (1 source) intermediate manager (current) use of insulin; Translations: [Type 2 diabetes mellitus with diabetic polyneuropathy, with long-term current use of insulin ([facility])] Onset: 09-17-2021 Episodic Results Test Name Value Interpretation Reference Range Facil peggy Flores 10-16-2024 LUCILA Telephone (PHME) ARLETTE SALGADO ([id number]) 1965 F Date Time Provider Department 10/16/24 SIOBHAN MACEDO During your visit today, we recorded the following information about you: HermitageSiobhan [facility] 10/16/2024 11:19 AM Signed Called patient for scheduled phone appt today (x4) but unable to reach or LMOM since voicemail box is not yet set up. Primary Care Pharmacy Rescheduling Outreach Call center, please contact patient and reschedule telephone visit for Diabetes management within ~4 week(s). (Visit length: 60 minutes) Thank you, Siobhan Macedo [facility] 10/16/2024 11:18 AM Devonte More 10/16/2024 11:30 AM Signed Telephoned the patient regarding missed appt. Unable to leave a message. Devonte More 10/21/2024 10:47 AM Signed Telephoned the patient regarding missed appt. Unable to leave a message. Patient does not have mychart active. Second attempt. RemingtonSiobhan gates [facility] 10/28/2024 9:34 AM Signed Called patient again to reschedule missed appt. Unable to reach or LMOM, voicemail is not set up. Siobhan Macedo, PharmD, BCPS Primary Care Clinical Pharmacist Keira More [facility] 10/28/2024 10:22 AM Signed Final attempt. was made. Unable to reach pt. d/t VM is not set up. If pt. returns our call an appt. will nbe made. Pt. dos not have MyChart. Pt. discharge process is complete at this time. Nando jean [facility] as an FYI. Allergies As of Date: 10/16/2024 Noted Allergy Reaction KEFLEX (CEPHALEXIN) 08/02/2018 1 - Mental Status Change Comments: panic attacks SULFA (SULFONAMIDE ANTIBIOTICS) 07/10/2007 Date Reviewed: 09/10/2024 Reviewed by: SANDRA SCHULZ - Fully Assessed Reason for Visit: Missed Appointment [1304] Cmt: Primary care reschedule Prescriptions as of 10/28/2024 - Insulin Arapahoe, Disposable, (PEN NEEDLE) 32 gauge x 5/32 [...] by mouth once daily. - Blood-Glucose Sensor ([employer]Hound G7 SENSOR) fabiola 1 each every 2 [...] Meds Comments as of 11/17/2016: Disc Drug [place] [facility] [place] Problem List As Of Date 10/16/2024 Noted Resolved Hypertension, essential [I10] 09/23/2016 Hyperlipidemia, mixed [E78.2] 09/23/2016 Depression [F32.A] 09/23/2016 Anxiety [F41.9] 09/23/2016 Diabetes mellitus type 2, uncontrolled, without*09/28/2016 Type 2 diabetes mellitus without complication, *09/17/2021 Encounter Status:Closed by SIOBHAN MACEDO on 10/16/24 [facility] Emergency Department Summary on 09-27-2024 Emergency Department Summary [facility] Medical Records Department [address] [place] [address] Emergency Department Summary 09/27/24 MR#: [id number] Acct: [id number] Name: ARLETTE SALGADO Rep #: [id number] : 1965 58 From: Tommy Saul DO PCP: Dr. Malika Hernandez MD Status:REG ER Location: ED HPI History of Present Illness Chief Complaint: Chest Other [facility] Medical History Diabetes Home Medications ???Medication ???Instructions ???Recorded ???Last Taken ???Type citalopram 40 mg tablet 40 mg PO QHS Depression/Anxiety 02/25/19 22:00 History 40 mg glipizide 5 mg tablet 5 mg PO DAILY DM 02/26/19 02/26/19 08:00 History 5 mg insulin detemir U-100 100 unit/mL 20 units subcut QHS DM 02/26/19 0 02/25/19 22:00 History (3 mL) subcutaneous pen 20 units lisinopril 2.5 mg tablet 2.5 mg PO QHS BP 02/26/19 02/25/19 22:00 History 2.5mg metformin 500 mg tablet 500 mg PO BID DM 02/26/19 02/26/19 08:00 History 500 mg pravastatin 10 mg tablet 10 mg PO QHS Cholesterol 02/26/19 02/25/19 22:00 History 10 mg ergocalciferol (vitamin D2) 1,250 50,000 unit PO Q7D #7 caps Unknown Rx mcg (50,000 unit) capsule Allergy/AdvReac Type Severity Reaction Status Date / Time Sulfa (Sulfonamide Allergy Rash Verified 09/27/24 13:58 Antibiotics) Surgical History History of laminectomy Social History Smoking Status: Current every day smoker tobacco type: cigarettes EXAM Physical Exam Const Vital Signs: 09/27/24 13:59 09/27/24 15:36 Temperature 97.2 F L Temperature Source Temporal Pulse Rate 87 Respiratory Rate 19 H Respiratory Effort Normal Non-Labored Blood Pressure 156/95 H Blood Pressure Mean 115 Pulse Ox 100 Oxygen Delivery Method Room Air MDM MDM MDM Narrative Medical decision making narrative: HISTORY OF PRESENT ILLNESS: Chief complaint: Left-sided chest pain 58-year-old female presents status post mechanical fall in the shower. Notes this occurred 4 hours ago. States she fell onto her left chest. Notes left-sided chest pain. Denies syncope. Denies head trauma loss of consciousness. Denies any vomiting. REVIEW OF SYSTEMS: Pertinent positives: Left-sided musculoskeletal chest pain Pertinent negatives: head trauma PHYSICAL EXAM: Nursing triage notes reviewed, Vital signs reviewed Constitutional: please see [facility] HENT: MMM Eyes: Pupils equal round and reactive to light, Extraocular muscles intact Neck: No stridor, no JVD, full neck ROM Lungs: Clear to auscultation, No wheezing or rales. No increased work of breathing, no conversational dyspnea, no accessory muscle use, no nasal flaring. No respiratory distress noted, no fill chest Heart: Regular rate and rhythm, No murmurs, No rubs and No gallops, 2+ distal pulses (radial, femoral, posterior tibial) in all extremities Abdomen: Soft, there is no tenderness, rigidity, rebound or guarding, no obvious peritoneal signs, no palpable pulsatile abdominal masses, no auscultated abdominal bruit : No CVAT Extremities: No edema Neuro: No new focal neurological deficits, cranial nerves II through XII intact, 5/5 strength in all present extremities. Intact sensation to light touch in all present extremities, 2+ reflexes bilateral patella tendons. Skin: No rash or lesions noted, no bruising noted to left ribs MEDICAL DECISION MAKING: Chief Complaint: please see HPI External records reviewed: Reviewed prior imaging studies Factors affecting care: Type 2 diabetes, hypertension, hyperlipidemia Social determinants of health: none History obtained from others: none Consults: none [facility] Narrative: The patient was initially hemodynamically stable, afebrile and nontoxic-appearing. Exam with bilateral breath sounds. No crepitus. No flail chest noted. I considered the following differential diagnosis: Rib contusion, rib fracture, pneumothorax I obtained chest x-ray to further determine if the patient was suffering from a life-threatening etiology. Gave Tylenol, ibuprofen and lidocaine patches ALL IMAGES (IF OBTAINED) HAVE BEEN PERSONALLY REVIEWED AND INTERPRETED BY MYSELF. X-ray of the chest with ribs was negative for rib fracture Patient likely suffered rib contusion. Given symptom spirometer and discharged with pneumonia return precaution The patient and/or family, caregivers express understanding. The patient and/or family, caregivers agrees with the plan. Shared decision making: I will have a discussion with the patient and or visitors regarding risk/benefits of further testing or admission. They will be made aw (more content not included)... [facility] Ribs Uni Min 3V w/PA Cheston 09-27-2024 Ribs Uni Min 3V w/PA Chest [facility] Imaging Services [address] [place] [address] Ribs Uni Min 3V w/PA Chest MR#: [id number] Acct: [id number] Name: ARLETTE SALGADO Rep #: [id number] : 1965 F 58 From: Nanette Henry MD PCP: Dr. Malika Hernandez MD Status: REG ER Study: Ribs Uni Min 3V w/PA Chest Date of Exam: 09/27 Exam# [id number] Ordering Dr: Tommy Saul DO PROCEDURE: RIBS BILATERAL MIN 3V W/PA CHEST 09/27/2024 REASON FOR EXAM: LEFT POSTERIOR CHEST PAIN TECHNIQUE: RIBS BILATERAL MIN 3V W/PA CHEST COMPARISON: None. FINDINGS: LUNGS AND PLEURA: The lungs are clear. No pleural effusion or pneumothorax. HEART AND MEDIASTINUM: The heart size and mediastinal contours are normal. BONES: No acute osseous abnormality. No evidence of acute rib fracture. RAD/Ribs Uni Min 3V w/PA Chest IMPRESSION: No acute rib fracture seen. No pneumothorax. Reading Location: [id number] CC: Dr. Malika Hernandez MD; Dr. Tommy Saul DO Architectural Renderer: Signed [facility] 09-18-2024 CNPN Telephone (PHARMN) ARLETTE SALGADO ([id number]) 1965 F Date Time Provider Department 09/18/24 BERNA BOUCHER PHARMN During your visit today, we recorded the following information about you: Berna Boucher, [facility] 09/18/2024 1:38 PM Signed Telephoned the patient to schedule a new Primary Care pharmacy appt. No message left, voicemail not set-up.. Lonnie Winston Berna, PSS 09/19/2024 1:51 PM Signed Telephoned the patient to schedule a new Primary Care pharmacy appt. No message left, voicemail not set-up.. Siobhan Macedo, [facility] 09/23/2024 2:10 PM Signed Called patient, scheduled her for initial PharmD visit on 10/16. Siobhan Macedo, PharmD, [facility] Primary Care Clinical Pharmacist Allergies As of Date: 09/18/2024 Noted Allergy Reaction KEFLEX (CEPHALEXIN) 08/02/2018 1 - Mental Status Change Comments: panic attacks SULFA (SULFONAMIDE ANTIBIOTICS) 07/10/2007 Date Reviewed: 09/10/2024 Reviewed by: SANDRA SCHULZ - Fully Assessed Reason for Visit: NEW PRIMARY CARE PHARMACY APPT [Other] Prescriptions as of 09/23/2024 - Insulin [place]ahoe, Disposable, (PEN NEEDLE) 32 gauge x 5/32 [...] by mouth once daily. - Blood-Glucose Sensor (eSeekersCOM G7 SENSOR) fabiola 1 each every 2 [...] Meds Comments as of 11/17/2016: Disc Drug False Pass - [place] Problem List As Of Date 09/18/2024 Noted Resolved Hypertension, essential [I10] 09/23/2016 Hyperlipidemia, mixed [E78.2] 09/23/2016 Depression [F32.A] 09/23/2016 Anxiety [F41.9] 09/23/2016 Diabetes mellitus type 2, uncontrolled, without*09/28/2016 Type 2 diabetes mellitus without complication, *09/17/2021 Encounter Status:Closed by BERNA BOUCHER on 09/19/24 Normal [facility] ALBUMIN/CREATININE RATIO, UR INEon 09-16-2024 Albumin DL <= 20 mg/L (U) [Mass/Vol] 104.2 mg/L Normal [facility] Comment on above: Order Comment: Speci men Type: URINE SPECIMEN Ordering Facility: [facility] Address: [address] [place] [address] Performed By: #### U ACR #### [facility] CLIA [id number] [address] [place] [address] [place] Albumin/Creatinine (U) [Mass ratio] 108 mg/g High <30 [facility] Comment on above: Order Comment: Speci men Type: URINE SPECIMEN Ordering Facility: [facility] Address: [address] [place] [address] Result Comment: Adul t Male and Female Nephrotic Criteria: <30 mg/g is considered normal to mildly increased 30-300 mg/g is considered moderately increased >300 mg/g is considered severely increased KDIGO. (2013). KDIGO 2012 Clinical Practice Guideline for the Evaluation and Management of Chronic Kidney Disease. Official Journal of the International Society of Nephrology, 3(1), 1-150. Performed By: #### U ACR #### [facility] CLIA [id number] [address] [place] [address] [place] [place] Creatinine (U) [Mass/Vol] 96.8 mg/dL Normal 20.0-300.0 [facility] Comment on above: Order Comment: Speci men Type: URINE SPECIMEN Ordering Facility: [facility] Address: [address] [place] [address] Performed By: #### U ACR #### [facility] CLIA [id number] [address] [place] [address] [place] CBC W Auto Differential pane l (Bld)on 09-16-2024 Basophils (Bld) [#/Vol] 0.04 10*3/uL Normal <0.11 [facility] Comment on above: Order Comment: Speci men Type: BLOOD SPECIMEN Ordering Facility: [facility] Address: [address] [place] [address] Performed By: #### 5 7021-8 #### [facility] CLIA [id number] [address] [place] [address] [place] Basophils/100 WBC (Bld) 0.4 % Normal [facility] Comment on above: Order Comment: Speci men Type: BLOOD SPECIMEN Ordering Facility: [facility] Address: [address] [place] [address] Performed By: #### 5 7021-8 #### [facility] CLIA [id number] [address] [place] [address] [place] Differential cell count method Nom (Bld) Auto Normal [facility] Comment on above: Order Comment: Speci men Type: BLOOD SPECIMEN Ordering Facility: [facility] Address: [address] [place] [address] Performed By: #### 5 7021-8 #### [facility] CLIA [id number] [address] [place] [address] [place] Eosinophils (Bld) [#/Vol] 0.26 10*3/uL Normal <0.46 [facility] Comment on above: Order Comment: Speci men Type: BLOOD SPECIMEN Ordering Facility: [facility] Address: [address] [place] [address] Performed By: #### 5 7021-8 #### [facility] CLIA [id number] [address] [place] [address] [place] Eosinophils/100 WBC (Bld) 2.9 % Normal [facility] Comment on above: Order Comment: Speci men Type: BLOOD SPECIMEN Ordering Facility: [facility] Address: [address] [place] [address] Performed By: #### 5 7021-8 #### [facility] CLIA [id number] [address] [place] [address] [place] Erythrocyte distribution width (RBC) [Ratio] 12.6 % Normal 11.5-15.0 [facility] Comment on above: Order Comment: Speci men Type: BLOOD SPECIMEN Ordering Facility: [facility] Address: [address] [place] [address] Performed By: #### 5 7021-8 #### [facility] CLIA [id number] [address] [place] [address] [place] Hematocrit (Bld) [Volume fraction] 42.1 % Normal 36.0-46.0 [facility] Comment on above: Order Comment: Speci men Type: BLOOD SPECIMEN Ordering Facility: [facility] Address: [address] [place] [address] Performed By: #### 5 7021-8 #### [facility] CLIA [id number] [address] [place] [address] [place] Hemoglobin (Bld) [Mass/Vol] 14.5 g/dL Normal 11.5-15.5 [facility] Comment on above: Order Comment: Speci men Type: BLOOD SPECIMEN Ordering Facility: [facility] Address: [address] [place] [address] Performed By: #### 5 7021-8 #### [facility] CLIA [id number] [address] [place] [address] [place] Immature granulocytes (Bld) [#/Vol] 0.03 10*3/uL Normal <0.10 [facility] Comment on above: Order Comment: Speci men Type: BLOOD SPECIMEN Ordering Facility: [facility] Address: [address] [place] [address] Performed By: #### 5 7021-8 #### [facility] CLIA [id number] [address] [place] [address] [place] Immature granulocytes/100 WBC (Bld) 0.3 % Normal [facility] Comment on above: Order Comment: Speci men Type: BLOOD SPECIMEN Ordering Facility: [facility] Address: [address] [place] [address] Performed By: #### 5 7021-8 #### [facility] CLIA [id number] [address] [place] [address] [place] Lymphocytes (Bld) [#/Vol] 2.78 10*3/uL Normal 1.00-4.00 [facility] Comment on above: Order Comment: Speci men Type: BLOOD SPECIMEN Ordering Facility: [facility] Address: [address] [place] [address] Performed By: #### 5 7021-8 #### [facility] CLIA [id number] [address] [place] [address] [place] Lymphocytes/100 WBC (Bld) 31.0 % Normal [facility] Comment on above: Order Comment: Speci men Type: BLOOD SPECIMEN Ordering Facility: [facility] Address: [address] [place] [address] Performed By: #### 5 7021-8 #### [facility] CLIA [id number] [address] [place] [address] [place] MCH (RBC) [Entitic mass] 31.0 pg Normal 26.0-34.0 [facility] Comment on above: Order Comment: Speci men Type: BLOOD SPECIMEN Ordering Facility: [facility] Address: [address] [place] [address] Performed By: #### 5 7021-8 #### [facility] CLIA [id number] [address] [place] [address] [place] MCHC (RBC) [Mass/Vol] 34.4 g/dL Normal 30.5-36.0 [facility] Comment on above: Order Comment: Speci men Type: BLOOD SPECIMEN Ordering Facility: [facility] Address: [address] [place] [address] Performed By: #### 5 7021-8 #### [facility] CLIA [id number] [address] [place] [address] [place] MCV (RBC) [Entitic vol] 90.1 fL Normal 80.0-100.0 [facility] Comment on above: Order Comment: Speci men Type: BLOOD SPECIMEN Ordering Facility: [facility] Address: [address] [place] [address] Performed By: #### 5 7021-8 #### [facility] CLIA [id number] [address] [place] [address] [place] Monocytes (Bld) [#/Vol] 0.66 10*3/uL Normal <0.87 [facility] Comment on above: Order Comment: Speci men Type: BLOOD SPECIMEN Ordering Facility: [facility] Address: [address] [place] [address] Performed By: #### 5 7021-8 #### [facility] CLIA [id number] [address] [place] [address] [place] Monocytes/100 WBC (Bld) 7.3 % Normal [facility] Comment on above: Order Comment: Speci men Type: BLOOD SPECIMEN Ordering Facility: [facility] Address: [address] [place] [address] Performed By: #### 5 7021-8 #### [facility] CLIA [id number] [address] [place] [address] [place] Neutrophils (Bld) [#/Vol] 5.21 10*3/uL Normal 1.45-7.50 [facility] Comment on above: Order Comment: Speci men Type: BLOOD SPECIMEN Ordering Facility: [facility] Address: [address] [place] [address] Performed By: #### 5 7021-8 #### [facility] CLIA [id number] [address] [place] [address] [place] Neutrophils/100 WBC (Bld) 58.1 % Normal [facility] Comment on above: Order Comment: Speci men Type: BLOOD SPECIMEN Ordering Facility: [facility] Address: [address] [place] [address] Performed By: #### 5 7021-8 #### [facility] CLIA [id number] [address] [place] [address] [place] Nucleated RBC (Bld) [#/Vol] 10*3/uL Normal <0.01 [facility] Comment on above: Order Comment: Speci men Type: BLOOD SPECIMEN Ordering Facility: [facility] Address: [address] [place] [address] Performed By: #### 5 7021-8 #### [facility] CLIA [id number] [address] [place] [address] [place] Nucleated RBC/100 WBC (Bld) [Ratio] 0.0 /100 WBC Normal [facility] Comment on above: Order Comment: Speci men Type: BLOOD SPECIMEN Ordering Facility: [facility] Address: [address] [place] [address] Performed By: #### 5 7021-8 #### [facility] CLIA [id number] [address] [place] [address] [place] Platelet mean volume (Bld) [Entitic vol] 10.3 fL Normal 9.0-12.7 [facility] Comment on above: Order Comment: Speci men Type: BLOOD SPECIMEN Ordering Facility: [facility] Address: [address] [place] [address] Performed By: #### 5 7021-8 #### [facility] CLIA [id number] [address] [place] [address] [place] Platelets (Bld) [#/Vol] 230 10*3/uL Normal 150-400 [facility] Comment on above: Order Comment: Speci men Type: BLOOD SPECIMEN Ordering Facility: [facility] Address: [address] [place] [address] Performed By: #### 5 7021-8 #### [facility] CLIA [id number] [address] [place] [address] [place] RBC (Bld) [#/Vol] 4.67 10*6/uL Normal 3.90-5.20 [facility] Comment on above: Order Comment: Speci men Type: BLOOD SPECIMEN Ordering Facility: [facility] Address: [address] [place] [address] Performed By: #### 5 7021-8 #### [facility] CLIA [id number] [address] [place] [address] [place] WBC (Bld) [#/Vol] 8.98 10*3/uL Normal 3.70-11.00 [facility] Comment on above: Order Comment: Speci men Type: BLOOD SPECIMEN Ordering Facility: [facility] Address: [address] [place] [address] Performed By: #### 5 7021-8 #### [facility] CLIA [id number] [address] [place] [address] [place] Comprehensive metabolic 2000 panelon 09-16-2024 Albumin [Mass/Vol] 4.1 g/dL Normal 3.9-4.9 [facility] Comment on above: Order Comment: Speci men Type: BLOOD SPECIMEN Ordering Facility: [facility] Address: [address] [place] [address] Performed By: #### 2 4331-1, 89481-0 #### [facility] CLIA [id number] [address] [place] [address] [place] ALP [Catalytic activity/Vol] 68 U/L Normal 34-123 [facility] Comment on above: Order Comment: Speci men Type: BLOOD SPECIMEN Ordering Facility: [facility] Address: [address] [id number] Performed By: #### 2 4331-1, 71142-8 #### [facility] CLIA [id number] [address] [place] [address] [place] ALT [Catalytic activity/Vol] 19 U/L Normal 7-38 [facility] Comment on above: Order Comment: Speci men Type: BLOOD SPECIMEN Ordering Facility: [facility] Address: [address] [place] [address] Performed By: #### 2 4331-1, #### [facility] CLIA [id number] [address] [place] [address] [place] Anion gap [Moles/Vol] 12 mmol/L Normal 8-15 [facility] Comment on above: Order Comment: Speci men Type: BLOOD SPECIMEN Ordering Facility: [facility] Address: [address] [place] [address] Performed By: #### 2 4331-1, 83288-4 #### [facility] CLIA [id number] [address] [place] [address] [place] AST [Catalytic activity/Vol] 20 U/L Normal 13-35 [facility] Comment on above: Order Comment: Speci men Type: BLOOD SPECIMEN Ordering Facility: [facility] Address: [address] [place] [address] Performed By: #### 2 4331-1, 15179-7 #### [facility] CLIA [id number] [address] [place], [place] [address] [place] Bilirubin [Mass/Vol] 0.2 mg/dL Normal 0.2-1.3 [facility] Comment on above: Order Comment: Speci men Type: BLOOD SPECIMEN Ordering Facility: [facility] Address: [address] [place] [address] Performed By: #### 2 4331-1, 35204-9 #### [facility] CLIA [id number] [address] [place], [place] [address] [place] Calcium [Mass/Vol] 9.8 mg/dL Normal 8.5-10.2 [facility] Comment on above: Order Comment: Speci men Type: BLOOD SPECIMEN Ordering Facility: [facility] Address: [address] [place] [address] Performed By: #### 2 4331-1, 41721-4 #### [facility] CLIA [id number] [address] [place], [place] [address] [place] Chloride [Moles/Vol] 100 mmol/L Normal 98-107 [facility] Comment on above: Order Comment: Speci men Type: BLOOD SPECIMEN Ordering Facility: [facility] Address: [address] [place] [address] Performed By: #### 2 4331-1, 67380-6 #### [facility] CLIA [id number] [address] [place] [address] [place] CO2 [Moles/Vol] 23 mmol/L Normal 22-30 [facility] Comment on above: Order Comment: Speci men Type: BLOOD SPECIMEN Ordering Facility: [facility] Address: [address] [place] [address] Performed By: #### 2 4331-1, 32693-5 #### [facility] CLIA [id number] [address] [place], [place] [address] [place] Creatinine [Mass/Vol] 0.61 mg/dL Normal 0.58-0.96 [facility] Comment on above: Order Comment: Speci men Type: BLOOD SPECIMEN Ordering Facility: [facility] Address: [address] [place] [address] Performed By: #### 2 4331-1, 69967-5 #### [facility] CLIA [id number] [address] [place], [place] [address] [place] eGFRcr SerPlBld CKD-EPI 2020 104 mL/min/1.73m??? Normal >=60 [facility] Comment on above: Order Comment: Nicholas roa Type: BLOOD SPECIMEN Ordering Facility: [facility] Address: [address] [place] [address] Result Comment: Alexander mated Glomerular Filtration Rate (eGFR) is calculated using the 2020 CKD-EPI creatinine equation. This equation utilizes serum creatinine, sex, and age as parameters. The creatinine assay has traceable calibration to isotope dilution-mass spectrometry. Refer to KDIGO guidelines for clinical interpretation. In patients with unstable renal function, e.g. those with acute kidney injury, the eGFR may not accurately reflect actual GFR. Performed By: #### 2 4331-1, 85693-8 #### [facility] CLIA [id number] [address] [place] [address] [place] Glucose [Mass/Vol] 248 mg/dL High 74-99 [facility] Comment on above: Order Comment: Nicholas roa Type: BLOOD SPECIMEN Ordering Facility: [facility] Address: [address] [place] [address] Result Comment: The [place] Diabetes Association (ADA) provides guidance for cutoff [...] Standards of Medical Care in Diabetes 2016, [place] Diabetes Association. Diabetes Care. 2016.39(Suppl 1). Performed By: #### 2 4331-1, 38472-3 #### [facility] CLIA [id number] [address] [place] [address] [place] Potassium [Moles/Vol] 4.7 mmol/L Normal 3.7-5.1 [facility] Comment on above: Order Comment: Nicholas roa Type: BLOOD SPECIMEN Ordering Facility: [facility] Address: [address] [place] [address] Performed By: #### 2 4331-1, 42868-2 #### [facility] CLIA [id number] [address] [place] [address] [place] Protein [Mass/Vol] 6.7 g/dL Normal 6.3-8.0 [facility] Comment on above: Order Comment: Speci men Type: BLOOD SPECIMEN Ordering Facility: [facility] Address: [address] [place] [address] Performed By: #### 2 4331-1, 91778-3 #### [facility] CLIA [id number] [address] [place] [address] [place] Sodium [Moles/Vol] 135 mmol/L Low 136-144 [facility] Comment on above: Order Comment: Speci men Type: BLOOD SPECIMEN Ordering Facility: [facility] Address: [address] [place] [address] Performed By: #### 2 4331-1, 51644-7 #### [facility] CLIA [id number] [address] [place] [address] [place] Urea nitrogen [Mass/Vol] 21 mg/dL Normal 7-21 [facility] Comment on above: Order Comment: Speci men Type: BLOOD SPECIMEN Ordering Facility: [facility] Address: [address] [place] [address] Performed By: #### 2 4331-1, 05114-2 #### [facility] CLIA [id number] [address] [place] [address] [place] HbA1c (Bld)on 09-16-2024 Average glucose Estimated from glycated hemoglobin (Bld) [Mass/Vol] 324 mg/dL Normal [facility] Comment on above: Order Comment: Speci men Type: BLOOD SPECIMEN Ordering Facility: [facility] Address: [address] [place] [address] Result Comment: eAG: (Estimated average glucose) is a calculated value from HgbA1c and is technical sales representatives of the average blood glucose level in the last 2-3 month period. Performed By: #### 5 5454-3 #### [facility] CLIA [id number] [address] [place] [address] [place] HbA1c (Bld) [Mass fraction] 12.9 % High 4.3-5.6 [facility] Comment on above: Order Comment: Nicholas roa Type: BLOOD SPECIMEN Ordering Facility: [facility] Address: [address] [place] [address] Result Comment: [place] Diabetes Association guidelines indicate that patients with HgbA1c in the range 5.7-6.4% are at increased risk for development of diabetes, and intervention by lifestyle modification may be beneficial. HgbA1c greater or equal to 6.5% is considered diagnostic of diabetes. Performed By: #### 5 5454-3 #### [facility] CLIA [id number] [address] [place] [address] [place] Lipid 1996 panelon 5 Cholesterol [Mass/Vol] 267 mg/dL High <200 [facility] Comment on above: Order Comment: Nicholas roa Type: BLOOD SPECIMEN Ordering Facility: [facility] Address: [address] [place] [address] Result Comment: <200 mg/dL, Desirable 200-239 mg/dL, Borderline high >239 mg/dL, High Performed By: #### 2 4331-1, 90222-5 #### [facility] CLIA [id number] [address] [place] [address] [place] Cholesterol in HDL [Mass/Vol] 50 mg/dL Normal >39 [facility] Comment on above: Order Comment: Nicholas roa Type: BLOOD SPECIMEN Ordering Facility: [facility] Address: [address] [place] [address] Result Comment: 40-5 9 mg/dL, Acceptable >59 mg/dL, High: Negative risk factor for coronary heart disease <40 mg/dL, Low: Positive risk factor for coronary heart disease Performed By: #### 2 4331-1, #### [facility] CLIA [id number] [address] [place] [address] [place] Cholesterol in LDL [Mass/Vol] 162 mg/dL High <100 [facility] Comment on above: Order Comment: Nicholas roa Type: BLOOD SPECIMEN Ordering Facility: [facility] Address: [address] [place] [address] Result Comment: <100 mg/dL, Optimal 100-129 mg/dL, Near optimal/above optimal 130-159 mg/dL, Borderline high 160-189 mg/dL, High >189 mg/dL, Very high Secondary prevention optimal LDL Cholesterol levels are recommended to be <70 mg/dL LDL cholesterol is calculated using the Clinton-NIH equation. Performed By: #### 2 4331-1, #### [facility] CLIA [id number] [address] [place] [address] [place] Cholesterol in LDL/Cholesterol in HDL [Mass ratio] 3.24 {ratio} High <2.54 [facility] Comment on above: Order Comment: Nicholas roa Type: BLOOD SPECIMEN Ordering Facility: [facility] Address: [address] [place] [address] Result Comment: Refe rence: 1. National Cholesterol Education Program ATP III Guideline At-A-Glance Quick Desk Reference: National Heart, Lung, and Blood [place]. National Institutes of Health. 2001: NIH Publication No. 01-3305. 2. An International Atherosclerosis Society position paper: global recommendations for the management of dyslipidemia: executive summary, Atherosclerosis. 2014: 232(2):410-413. Performed By: #### 2 4331-1, 75545-7 #### [facility] CLIA [id number] [address] [place] [address] [place] Cholesterol in VLDL [Mass/Vol] 57 mg/dL High <30 [facility] Comment on above: Order Comment: Nicholas roa Type: BLOOD SPECIMEN Ordering Facility: [facility] Address: [address] [place] [address] Performed By: #### 2 4331-1, #### [facility] CLIA [id number] [address] [place] [address] [place] Cholesterol non HDL [Mass/Vol] 217 mg/dL High <130 [facility] Comment on above: Order Comment: Speci men Type: BLOOD SPECIMEN Ordering Facility: [facility] Address: [address] [place] [address] Result Comment: <130 mg/dL, Optimal 130-159 mg/dL, Near optimal/above optimal 160-189 mg/dL, Borderline high 190-219 mg/dL, High >219 mg/dL, Very high Secondary prevention optimal non HDL Cholesterol levels are recommended to be <100 mg/dL Performed By: #### 2 4331-1, #### [facility] CLIA [id number] [address] [place] [address] [place] Cholesterol.total/Ch olesterol in HDL [Mass ratio] 5.34 {ratio} High <5.10 [facility] Comment on above: Order Comment: Speci men Type: BLOOD SPECIMEN Ordering Facility: [facility] Address: [address] [place] [address] Performed By: #### 2 4331-1, #### [facility] CLIA [id number] [address] [place] [address] [place] FASTING TIME 12 hrs Normal [facility] Comment on above: Order Comment: Speci men Type: BLOOD SPECIMEN Ordering Facility: [facility] Address: [address] [place], [place] [address] Performed By: #### 2 4331-1, #### [facility] CLIA [id number] [address] [place] [address] [place] Triglyceride [Mass/Vol] 293 mg/dL High <150 [facility] Comment on above: Order Comment: Speci men Type: BLOOD SPECIMEN Ordering Facility: [facility] Address: [address] [place] [address] Result Comment: <150 mg/dL, Normal 150-199 mg/dL, Borderline high 200-499 mg/dL, High >499 mg/dL, Very high Performed By: #### 2 4331-1, 14284-5 #### [facility] CLIA [id number] [address] [place] [address] CNOVon 09-10-2024 CN[facility] Office Visit (FAMPWS ) ARLETTE SALGADO ([id number]) 1965 F Date Time Provider Department 09/10/24 9:00 AM [facility] During your visit today, we recorded the following information about you: Pulse Respiration Blood pressure Weight 72/minute 16/minute 126/80 52.4 kg Height 1.555 m Rusty Welch APRN.HURL SHAKER 09/10/2024 9:31 AM Signed Chief Complaint Patient presents with: Physical HPI Alrette Salgado is a 58 year old female [...] ACETBLR/PROX FEM PROSTC AGRFT/ALGRFT Left BREAST REDUCTION 2002 DELIVERY ONLY 1999, 2000, 2007 PAST SURGICAL HISTORY OF 1997 Laproscopy PAST SURGICAL HISTORY OF 2013 Spinal Fusion TONSILLECTOMY HX 1977 TUBAL LIGATION HX 2007 Family History FAMILY HISTORY Problem Relation Age [...] (Patient not taking: Reported on 03/27/2023) Insulin Arapahoe, Disposable, (PEN NEEDLE) 32 gauge x 5/32 [...] External ears normal, canals clear. Nose/Sinuses: Nares (more content not included)... Normal [facility] CNOVon 03-18-2024 CNOV Office Visit (UCTR ) ARLETTE SALGADO ([id number]) 1965 F Date Time Provider Department 03/18/24 4:00 PM ALYCE STARKS [facility] [[email or web address] During your visit today, we recorded the following information about you: Temperature Pulse Respiration Blood pressure 98.1 degrees 57/minute 18/minute 118/76 Weight 56.2 kg Alyce Starks APRN.CNP 03/18/2024 5:15 PM Signed CC: Patient presents with: Cough: Cough, chest congestion, chills, fever and bodyaches x 3 days HPI Arlette Barajas Naomi is a 58 year old female [...] (Patient not taking: Reported on 03/27/2023) Insulin Arapahoe, Disposable, (PEN NEEDLE) 32 gauge x 5/32 [...] tenderness or frontal sinus tenderness. Mouth/Throat: Lips: Toxey. Mouth: Mucous membranes are moist. Pharynx: Postnasal [...] No cervical adenopathy. Skin: General: Skin is warm (more content not included)... Normal [facility] INFLUENZA A&B MOLECULAR (POC )on 03-18-2024 Flu A (POCT) Positive Abnormal Negative [facility] Comment on above: Location:[address], [place], [address] Interpretation and review of laboratory results Abnormal [facility] Procedural Control Valid [facility] Location:[facility] [place], [address], [place], [address] [facility] POINT OF CARE [facility] XR Pelvis and Hip - right AP and Lateral frogon 09-16-2020 IMPRESSION: No radiographic evidence of acute osseous abnormality in the right hip. Architectural Renderer: SINDI Transcribe Date/Time: Sep 16 2020 3:30P Dictated by : ABELINO MARIO MD This examination was interpreted and the report reviewed and electronically signed by: ABELINO MARIO MD on Sep 16 2020 3:31PM [facility] DIVISION OF RADIOLOGY * * *Final Report* * * DATE OF EXAM: Sep 16 2020 12:29PM [id number] - XR HIP 3V PELV+ AP/LAT RT / PROCEDURE REASON: Hip pain * * * * Physician Interpretation * * * * CLINICAL INDICATION: Hip pain TECHNIQUE: AP radiograph of the pelvis and AP/frog-leg lateral radiographs of the right hip COMPARISON: None FINDINGS: No fracture or dislocation identified. Right hip joint space appears preserved. 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 No radiographic evidence of hardware complications in its imaged portion. Status post fusion of the lumbosacral junction. Status post laminectomy of the lower spine. Phleboliths in the pelvis. DIVISION OF RADIOLOGY Provider, [facility] - 09/16/2020 * * *Final Report* * * DATE OF EXAM: Sep 16 2020 12:29PM [id number] - XR HIP 3V PELV+ AP/LAT RT / PROCEDURE REASON: Hip pain * * * * Physician Interpretation * * * * CLINICAL INDICATION: Hip pain TECHNIQUE: AP radiograph of the pelvis and AP/frog-leg lateral radiographs of the right hip COMPARISON: None FINDINGS: No fracture or dislocation identified. Right hip joint space appears preserved. 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 No radiographic evidence of hardware complications in its imaged portion. Status post fusion of the lumbosacral junction. Status post laminectomy of the lower spine. Phleboliths in the pelvis. IMPRESSION IMPRESSION: No radiographic evidence of acute osseous abnormality in the right hip. Architectural Renderer: [email or web address] Transcribe Date/Time: Sep 16 2020 3:30P Dictated by : ABELINO MARIO MD This examination was interpreted and the report reviewed and electronically signed by: ABELINO MARIO MD on Sep 16 2020 3:31PM EST [facility] Radiology Study observation (narrative) [facility] XR Pelvis and Hip - right AP and Lateral frogOrdered By: [facility] Provider on 09-16-2020 [facility] Vital Signs Date Time Vital Sign Value Performing Clinician Facility 09-27-2024 18:03-0400 Body temperature 98 [degF] Dr. Malika Hernandez MD Work Phone: 4(015)197-823499 [place] [address] 09-27-2024 18:03-0400 Diastolic blood pressure 100 mm[Hg] Dr. Malika Hernandez MD Work Phone: 4(219)730-982699 [place] [address] 09-27-2024 18:03-0400 Heart rate 75 /min Dr. Malika Hernandez MD Work Phone: 6(376)567-191399 [place] [address] 09-27-2024 18:03-0400 Respiratory rate 16 /min Dr. Malika Hernandez MD Work Phone: 2(270)327-454599 [place] [address] 09-27-2024 18:03-0400 SaO2% (BldA) [Mass fraction] 100 % Dr. Malika Hernandez MD Work Phone: 3(827)435-959299 [place] [address] 09-27-2024 18:03-0400 Systolic blood pressure 165 mm[Hg] Dr. Malika Hernandez MD Work Phone: 3(809)328-229099 [place] [address] 09-27-2024 13:59-0400 Body height 157.[address] Malika Hernandez MD Work Phone: 2(328)338-131699 [place] [address] 09-27-2024 13:59-0400 Body mass index (BMI) [Ratio] 21.6 kg/m2 Dr. Malika Hernandez MD Work Phone: 2([phone])600-050699 [place] [address] 09-27-2024 13:59-0400 Body weight 53.[address] Malika Hernandez MD Work Phone: 9(156)414-073399 [place] [address] 09-10-2024 09:00-0400 Body height 155.5 cm Rusty Ayaan EXECUTIVE OFFICER.HURL SHAKER Work Phone: [facility] 09-10-2024 09:00-0400 Body mass index (BMI) [Ratio] 21.69 kg/m2 Rusty Ayaan EXECUTIVE OFFICER.HURL SHAKER Work Phone: [facility] 09-10-2024 09:00-0400 Body weight 52.44 kg Rusty Ayaan EXECUTIVE OFFICER.HURL SHAKER Work Phone: [facility] 09-10-2024 09:00-0400 Diastolic blood pressure 80 mm[Hg] Rusty Ayaan EXECUTIVE OFFICER.HURL SHAKER Work Phone: [facility] 09-10-2024 09:00-0400 Heart rate 72 /min Rusty Ayaan EXECUTIVE OFFICER.HURL SHAKER Work Phone: [facility] 09-10-2024 09:00-0400 Respiratory rate 16 /min Rusty Ayaan EXECUTIVE OFFICER.HURL SHAKER Work Phone: [facility] 09-10-2024 09:00-0400 Systolic blood pressure 126 mm[Hg] Rusty Ayaan EXECUTIVE OFFICER.HURL SHAKER Work Phone: [facility] 03-18-2024 15:44-0500 Body mass index (BMI) [Ratio] 22.66 kg/m2 Alyce Starks EXECUTIVE OFFICER.HURL SHAKER Work Phone: [facility] 03-18-2024 15:44-0500 Body temperature 98.1 [degF] Alyce Starks EXECUTIVE OFFICER.HURL SHAKER Work Phone: [facility] 03-18-2024 15:44-0500 Body weight 56.2 kg Alyce Starks EXECUTIVE OFFICER.HURL SHAKER Work Phone: [facility] 03-18-2024 15:44-0500 Diastolic blood pressure 76 mm[Hg] Alyce Starks EXECUTIVE OFFICER.HURL SHAKER Work Phone: [facility] 03-18-2024 15:44-0500 Heart rate 57 /min Alyce Starks EXECUTIVE OFFICER.HURL SHAKER Work Phone: [facility] 03-18-2024 15:44-0500 Respiratory rate 18 /min Alyce Starks EXECUTIVE OFFICER.HURL SHAKER Work Phone: [facility] 03-18-2024 15:44-0500 SaO2% (BldA) [Mass fraction] 100 % Alyce Starks EXECUTIVE OFFICER.HURL SHAKER Work Phone: [facility] 03-18-2024 15:44-0500 Systolic blood pressure 118 mm[Hg] Alyce Starks EXECUTIVE OFFICER.HURL SHAKER Work Phone: [facility] 03-27-2023 09:18-0500 Body height 157.5 cm Rusty Ayaan EXECUTIVE OFFICER.HURL SHAKER Work Phone: [facility] 03-27-2023 09:18-0500 Body temperature 97 [degF] Rusty Ayaan EXECUTIVE OFFICER.HURL SHAKER Work Phone: [facility] 03-27-2023 09:18-0500 Body weight 58.7 kg Rusty Ayaan EXECUTIVE OFFICER.HURL SHAKER Work Phone: [facility] 03-27-2023 09:18-0500 Diastolic blood pressure 75 mm[Hg] Rusty Ayaan EXECUTIVE OFFICER.HURL SHAKER Work Phone: [facility] 03-27-2023 09:18-0500 Heart rate 80 /min Rusty Ayaan EXECUTIVE OFFICER.HURL SHAKER Work Phone: [facility] 03-27-2023 09:18-0500 Respiratory rate 16 /min Rusty Ayaan EXECUTIVE OFFICER.HURL SHAKER Work Phone: [facility] 03-27-2023 09:18-0500 SaO2% (BldA) [Mass fraction] 100 % Rusty Ayaan EXECUTIVE OFFICER.HURL SHAKER Work Phone: [facility] 03-27-2023 09:18-0500 Systolic blood pressure 108 mm[Hg] Rusty Ayaan EXECUTIVE OFFICER.HURL SHAKER Work Phone: [facility] 09-05-2022 09:08-0400 Body height 156.2 cm Rusty Ayaan EXECUTIVE OFFICER.HURL SHAKER Work Phone: [facility] 09-05-2022 09:08-0400 Body temperature 97.81 [degF] Rusty Welch EXECUTIVE OFFICER.HURL SHAKER Work Phone: [facility] 09-05-2022 09:08-0400 Body weight 62.41 kg Rusty Welch EXECUTIVE OFFICER.HURL SHAKER Work Phone: [facility] 09-05-2022 09:08-0400 Diastolic blood pressure 88 mm[Hg] Rusty Welch EXECUTIVE OFFICER.HURL SHAKER Work Phone: [facility] 09-05-2022 09:08-0400 Heart rate 71 /min Rusty Welch APRN.HURL SHAKER Work Phone: [facility] 09-05-2022 09:08-0400 Respiratory rate 16 /min Rusty Welch EXECUTIVE OFFICER.HURL SHAKER Work Phone: [facility] 09-05-2022 09:08-0400 SaO2% (BldA) [Mass fraction] 98 % Rusty Welch EXECUTIVE OFFICER.HURL SHAKER Work Phone: [facility] 09-05-2022 09:08-0400 Systolic blood pressure 132 mm[Hg] Rusty Welch EXECUTIVE OFFICER.HURL SHAKER Work Phone: [facility] Encounters Encounter Date Encounter Type Care Provider Facility Start: 10-16-2024 End: 10-16-2024 Telephone encounter Siobhan Macedo [facility] Work Phone: [facility] Comment on above: Missed Appointment ( Primary care reschedule) Start: 09-27-2024 End: 09-27-2024 Emergency department patient visit Dr. Malika Hernandez MD Work Phone: -Emergency Department Work Phone: Start: 09-18-2024 End: 09-19-2024 Telephone encounter Berna Winston [facility] Comment on above: NEW PRIMARY CARE PHA RMACY APPT Start: 09-17-2024 End: 09-26-2024 Follow-up encounter Rusty Welch APRN.HURL SHAKER Work Phone: Family [facility] [place] Comment on above: Results Start: 09-16-2024 End: 09-16-2024 ambulatory [facility] Facility:[facility] Start: 09-10-2024 End: 09-10-2024 Patient encounter status Rusty Welch APRN.CNP Work Phone: [facility] Start: 09-10-2024 End: 09-10-2024 Periodic preventive med est patient 40-64yrs Rusty Welch APRN.CNP Work Phone: [facility] [place] Comment on above: Wellness examination (Primary Dx); Type 2 diabetes mellitus with diabetic polyneuropathy, with long-term current use of insulin (HCC); Hyperlipidemia, mixed; Hypertension, essential; Depression, unspecified depression type; Anxiety; Encounter for screening mammogram for breast cancer Start: 09-10-2024 End: 09-10-2024 [facility] Facility:[facility] Start: 09-10-2024 Encounter for genera l adult medical examination without abnormal findings RUSTY WELCH [facility] Start: 03-18-2024 End: 03-18-2024 ambulatory [facility] Facility:[facility] Start: 03-18-2024 End: 03-18-2024 Patient encounter procedure Alyce Starks APRN.CNP Work Phone: [facility] Comment on above: Influenza A (Primary Dx); URI, acute Start: 10-18-2023 End: 10-23-2023 ambulatory Malika Hernandez MD Work Phone: Internal Medicine [facility] Start: 05-10-2023 Telephone encounter Malika lópez MD Work Phone: [facility] [place] Start: 03-27-2023 End: 03-27-2023 Office outpatient visit 25 minutes Rusty Welch APRN.HURL SHAKER Work Phone: [facility] [place] Comment on above: Type 2 diabetes celia itus without complication, with long-term current use of insulin (HCC) (Primary Dx); Need for influenza vaccination; Screening for colon cancer; Depression, unspecified depression type; Hyperlipidemia, mixed; Hypertension, essential; Anxiety; Screening for diabetic retinopathy; Encounter for immunization; Screening for cervical cancer Start: 09-14-2022 Telephone encounter Rusty barajas APRN.HURL SHAKER Work Phone: [facility] [place] Comment on above: Insurance Authorizat ion Start: 09-05-2022 End: 09-05-2022 Office outpatient visit 25 minutes Rusty Welch APRN.HURL SHAKER Work Phone: [facility] [place] Comment on above: Type 2 diabetes celia itus without complication, with long-term current use of insulin (HCC) (Primary Dx); Hypertension, essential; Hyperlipidemia, mixed; Depression, unspecified depression type; Screening for colon cancer; Anxiety; Onychomycosis Start: 06-23-2022 Telephone encounter Malika lópez MD Work Phone: [facility] Comment on above: Appointment Start: 09-08-2021 Refill Malika orozco MD Work Phone: [facility] Comment on above: Refill Request; Refi ll Request Start: 08-04-2021 ambulatory Malika orozco MD Work Phone: Internal Medicine [facility] [place] Start: 05-17-2021 ambulatory Urmila Elizalde APRN.HURL SHAKER Work Phone: [facility] [place] Start: 09-16-2020 End: 09-16-2020 Subsequent hospital visit by physician Xr [facility] [place] Work Phone: Radiology Comment on above: Hip pain [M25.559] Procedures Date Procedure Procedure Detail Performing Clinician Start: 09-27-2024 X-ray of chest posteroanterior view Dr. Malika Hernandez MD Work Phone: Start: 03-18-2024 INFLUENZA A&B MOLECU LAR (POC) Alyce Starks APRN.HURL SHAKER Work Phone: Start: 03-27-2023 PFIZER-BIONTBookShout! COVI D-19 VACCINE ( SEASON) AGE 12+ YR Rusty Welch APRN.HURL SHAKER Work Phone: Start: 03-27-2023 INFLUENZA VACCINE, A GE 6 MO - 64 YR, QUADRIVALENT (AFLURIA, FLULAVAL, FLUZONE) Rusty Welch EXECUTIVE OFFICER.HURL SHAKER Work Phone: Start: 09-08-2022 Mammography Rusty barajas EXECUTIVE OFFICER.HURL SHAKER Work Phone: Start: 09-16-2020 Radex hip unilateral with pelvis 2-3 views Juliann Rizwana EXECUTIVE OFFICER.HURL SHAKER Work Phone: Start: 03-12-2018 Mammography Urmila Mascorro nhof EXECUTIVE OFFICER.HURL SHAKER Work Phone: Plan of Treatment Date Care Activity Detail Author Start: 09-28-2026 Urine microalbumin profile [facility] Start: 05-01-2026 Screening for malign ant neoplasm of colon [facility] Start: 09-16-2025 Hepatitis B screening Urine Albumin:Creatinine Ratio [facility] Start: 09-16-2025 Hepatitis B surface antibody level LDL Cholesterol [facility] Start: 09-10-2025 Annual PCP Team Dope Firer lissett Disease Visit Annual PCP Team Chronic Disease Visit [facility] Start: 09-10-2025 Diabetic foot examination Diabetic Foot Exam [facility] Start: 12-23-2024 End: 12-23-2024 Patient encounter procedure 12/23/2024 8:40 AM EST Office Visit [facility] [address] [place], [place] [id number] Rusty Welch EXECUTIVE OFFICER.HURL SHAKER [address] [place] [address] 3 month follow up [facility] Comment on above: 3 month follow up Start: 12-18-2024 End: 03-19-2025 Comprehensive metabolic 2000 panel - Serum or Plasma COMPREHENSIVE METABOLIC PANEL Lab Routine Type 2 diabetes mellitus with diabetic polyneuropathy, with long-term current use of insulin (HCC) Expected: 12/18/2024, Expires: 03/19/2025 [facility] Comment on above: Expected: 12/18/2024 , Expires: 03/19/2025 Start: 12-18-2024 End: 03-19-2025 Hemoglobin A1c in Blood HEMOGLOBIN A1C Lab Routine Type 2 diabetes mellitus with diabetic polyneuropathy, with long-term current use of insulin (HCC) Expected: 12/18/2024, Expires: 03/19/2025 [facility] Work Phone: Comment on above: Expected: 12/18/2024 , Expires: 03/19/2025 Start: 12-18-2024 End: 03-19-2025 Lipid 1996 panel - Serum or Plasma LIPID PANEL, FASTING Lab Routine Type 2 diabetes mellitus with diabetic polyneuropathy, with long-term current use of insulin (HCC) Expected: 12/18/2024, Expires: 03/19/2025 [facility] Comment on above: Expected: 12/18/2024 , Expires: 03/19/2025 Start: 12-17-2024 Hemoglobin A1c measurement HbA1C [facility] Start: 10-16-2024 End: 10-16-2024 Patient encounter procedure 10/16/2024 11:[address] [facility] [address] [place], [place] [phone] Siobhan Macedo, [facility] [address] [place] [id number] DM initial [facility] Med [facility] Comment on above: DM initial Start: 10-07-2024 Influenza vaccination Influenza Vacc ine (#1) [facility] Start: 09-27-2024 Incentive spirometry [facility] Start: 09-27-2024 [facility] Start: 09-20-2024 End: 09-20-2024 Patient encounter procedure 09/20/2024 9:50 AM EDT Appointment Mammogram [address] [place], [place] [id number] Dx: Encounter for screening mammogram for breast cancer [Z12.31] Mammogram Comment on above: Dx: Encounter for sc reening mammogram for breast cancer [Z12.31] Start: 09-10-2024 End: 12-10-2024 CBC W Auto Differential panel - Blood COMPLETE BLOOD COUNT AND DIFFERENTIAL Lab Routine Type 2 diabetes mellitus with diabetic polyneuropathy, with long-term current use of insulin (HCC) Hypertension, essential Expected: 09/10/2024, Expires: 12/10/2024 [facility] Comment on above: Expected: 09/10/2024 , Expires: 12/10/2024 Start: 09-10-2024 End: 12-10-2024 Comprehensive metabolic 2000 panel - Serum or Plasma COMPREHENSIVE METABOLIC PANEL Lab Routine Type 2 diabetes mellitus with diabetic polyneuropathy, with long-term current use of insulin (HCC) Hyperlipidemia, mixed Hypertension, essential Expected: 09/10/2024, Expires: 12/10/2024 [facility] Comment on above: Expected: 09/10/2024 , Expires: 12/10/2024 Start: 09-10-2024 End: 12-10-2024 Hemoglobin A1c in Blood HEMOGLOBIN A1C Lab Routine Type 2 diabetes mellitus with diabetic polyneuropathy, with long-term current use of insulin (HCC) Expected: 09/10/2024, Expires: 12/10/2024 [facility] Work Phone: Comment on above: Expected: 09/10/2024 , Expires: 12/10/2024 Start: 09-10-2024 End: 12-10-2024 Lipid 1996 panel - Serum or Plasma LIPID PANEL, FASTING Lab Routine Type 2 diabetes mellitus with diabetic polyneuropathy, with long-term current use of insulin (HCC) Hyperlipidemia, mixed Expected: 09/10/2024, Expires: 12/10/2024 [facility] Comment on above: Expected: 09/10/2024 , Expires: 12/10/2024 Start: 09-10-2024 End: 12-10-2024 Microalbumin/Creatinine [Mass Ratio] in Urine ALBUMIN/CREATININE RATIO, URINE Lab Routine Type 2 diabetes mellitus with diabetic polyneuropathy, with long-term current use of insulin (HCC) Expected: 09/10/2024, Expires: 12/10/2024 [facility] Comment on above: Expected: 09/10/2024 , Expires: 12/10/2024 Start: 03-27-2024 Annual PCP Team Dope Firer lissett Disease Visit Annual PCP Team Chronic Disease Visit [facility] Start: 03-27-2024 BP Controlled (<130/80) BP Controlle d (<130/80) [facility] Start: 03-27-2024 Diabetic foot examination Diabetic Foot Exam [facility] Start: 10-08-2023 Covid-19 Vaccine (4 - 2024-25 season) Covid-19 Vaccine () [facility] Start: 10-08-2023 Influenza vaccination Influenza Vacc ine (#1) [facility] Start: 09-09-2023 Mammography MAMMOGRAM [facility] Start: 09-09-2023 Screening for malign ant neoplasm of breast Mammogram Screening [facility] Start: 09-06-2023 ANNUAL PCP TEAM GEOTHERMAL POWERPLANT SUPERVISOR LISSETT DISEASE VISIT ANNUAL PCP TEAM CHRONIC DISEASE VISIT [facility] Start: 03-27-2023 End: 06-26-2023 ALBUMIN/CREAT RATIO RND UR ALBUMIN/CREAT RATIO RND UR Lab Routine Type 2 diabetes mellitus without complication, with long-term current use of insulin (HCC) Expected: 03/27/2023, Expires: 06/26/2023 [facility] Work Phone: Comment on above: Expected: 03/27/2023 , Expires: 06/26/2023 Start: 03-27-2023 End: 06-26-2023 CBC W Auto Differential panel - Blood CBC + DIFF Lab Routine Type 2 diabetes mellitus without complication, with long-term current use of insulin (HCC) Expected: 03/27/2023, Expires: 06/26/2023 [facility] Work Phone: Comment on above: Expected: 03/27/2023 , Expires: 06/26/2023 Start: 03-27-2023 End: 06-26-2023 Comprehensive metabolic 2000 panel - Serum or Plasma COMP METABOLIC PANEL Lab Routine Type 2 diabetes mellitus without complication, with long-term current use of insulin (HCC) Expected: 03/27/2023, Expires: 06/26/2023 [facility] Work Phone: Comment on above: Expected: 03/27/2023 , Expires: 06/26/2023 Start: 03-27-2023 End: 06-26-2023 Hemoglobin A1c in Blood HGB A1C Lab Routine Type 2 diabetes mellitus without complication, with long-term current use of insulin (HCC) Expected: 03/27/2023, Expires: 06/26/2023 [facility] Work Phone: Comment on above: Expected: 03/27/2023 , Expires: 06/26/2023 Start: 03-27-2023 End: 06-26-2023 Lipid 1996 panel - Serum or Plasma LIPID PANEL BASIC Lab Routine Type 2 diabetes mellitus without complication, with long-term current use of insulin (HCC) Expected: 03/27/2023, Expires: 06/26/2023 [facility] Work Phone: Comment on above: Expected: 03/27/2023 , Expires: 06/26/2023 Start: 10-07-2022 Influenza vaccination [facility] Start: 09-17-2022 3 comp foot exam completed DIABETIC FOOT EXAM [facility] Start: 09-17-2022 ANNUAL PCP TEAM GEOTHERMAL POWERPLANT SUPERVISOR LISSETT DISEASE VISIT ANNUAL PCP TEAM CHRONIC DISEASE VISIT [facility] Start: 09-17-2022 BP CONTROLLED (<130/80) BP CONTROLLE D (<130/80) [facility] Start: 09-05-2022 End: 11-05-2022 ALBUMIN/CREAT RATIO RND UR ALBUMIN/CREAT RATIO RND UR Lab Routine Type 2 diabetes mellitus without complication, with long-term current use of insulin (HCC) Expected: 09/05/2022, Expires: 11/05/2022 [facility] Work Phone: Comment on above: Expected: 09/05/2022 , Expires: 11/05/2022 Start: 09-05-2022 End: 11-05-2022 CBC W Auto Differential panel - Blood CBC + DIFF Lab Routine Type 2 diabetes mellitus without complication, with long-term current use of insulin (HCC) Hypertension, essential Expected: 09/05/2022, Expires: 11/05/2022 [facility] Work Phone: Comment on above: Expected: 09/05/2022 , Expires: 11/05/2022 Start: 09-05-2022 End: 11-05-2022 Comprehensive metabolic 2000 panel - Serum or Plasma COMP METABOLIC PANEL Lab Routine Type 2 diabetes mellitus without complication, with long-term current use of insulin (HCC) Hypertension, essential Hyperlipidemia, mixed Expected: 09/05/2022, Expires: 11/05/2022 [facility] Work Phone: Comment on above: Expected: 09/05/2022 , Expires: 11/05/2022 Start: 09-05-2022 End: 11-05-2022 Hemoglobin A1c in Blood HGB A1C Lab Routine Type 2 diabetes mellitus without complication, with long-term current use of insulin (HCC) Expected: 09/05/2022, Expires: 11/05/2022 [facility] Work Phone: Comment on above: Expected: 09/05/2022 , Expires: 11/05/2022 Start: 09-05-2022 End: 11-05-2022 Lipid 1996 panel - Serum or Plasma LIPID PANEL BASIC Lab Routine Hyperlipidemia, mixed Expected: 09/05/2022, Expires: 11/05/2022 [facility] Work Phone: Comment on above: Expected: 09/05/2022 , Expires: 11/05/2022 Start: 04-27-2022 HPV TESTING HPV TESTING [facility] Start: 04-27-2022 PAP TESTING PAP TESTING [facility] Start: 04-27-2022 Screening for malign ant neoplasm of cervix [facility] Start: 10-07-[address] [facility] Start: 09-16-2021 ANNUAL PCP TEAM GEOTHERMAL POWERPLANT SUPERVISOR LISSETT DISEASE VISIT ANNUAL PCP TEAM CHRONIC DISEASE VISIT [facility] Start: 05-17-2021 End: 07-17-2021 ALBUMIN/CREAT RATIO RND UR ALBUMIN/CREAT RATIO RND UR Lab Routine Type 2 diabetes mellitus with unspecified complications (HCC) Expected: 05/17/2021, Expires: 07/17/2021 [facility] Work Phone: Comment on above: Expected: 05/17/2021 , Expires: 07/17/2021 Start: 05-17-2021 End: 07-17-2021 Comprehensive metabolic 2000 panel - Serum or Plasma COMP METABOLIC PANEL Lab Routine Type 2 diabetes mellitus with unspecified complications (HCC) Expected: 05/17/2021, Expires: 07/17/2021 [facility] Work Phone: Comment on above: Expected: 05/17/2021 , Expires: 07/17/2021 Start: 05-17-2021 End: 07-17-2021 Hemoglobin A1c/Hemoglobin.total in Blood HGB A1C Lab Routine Type 2 diabetes mellitus with unspecified complications (HCC) Expected: 05/17/2021, Expires: 07/17/2021 [facility] Work Phone: Comment on above: Expected: 05/17/2021 , Expires: 07/17/2021 Start: 05-17-2021 End: 07-17-2021 LIPID PANEL BASIC LIPID PANEL BASIC Lab Routine Type 2 diabetes mellitus with unspecified complications (HCC) Expected: 05/17/2021, Expires: 07/17/2021 [facility] Work Phone: Comment on above: Expected: 05/17/2021 , Expires: 07/17/2021 Start: 05-04-2021 PNEUMOCOCCAL (2 - PCV) PNEUMOCOCCAL (2 - PCV) [facility] Start: 05-04-2021 Pneumococcal vaccination Pneum ococcal Vaccine (2 of 2 - PCV) [facility] Start: 05-04-2021 Pneumococcal Vaccine : 50+ (2 of 2 - PCV) Pneumococcal Vaccine: 50+ (2 of 2 - PCV) [facility] Start: 04-28-2021 BP CONTROLLED (<130/80) BP CONTROLLE D (<130/80) [facility] Start: 04-27-2021 Hepatitis B screening URINE ALBUMIN:CREATININE RATIO [facility] Start: 04-27-2021 Hepatitis B surface antibody level LDL CHOLESTEROL [facility] Start: 02-08-2021 COVID-19 VACCINE (3 - Booster for Moderna series) COVID-19 VACCINE (3 - Booster for Moderna series) [facility] Start: 11-03-2020 COVID-19 VACCINE (3 - Booster for Moderna series) COVID-19 VACCINE (3 - Booster for Moderna series) [facility] Start: 11-03-2020 COVID-19 VACCINE (3 - Moderna series) COVID-19 VACCINE (3 - Moderna series) [facility] Start: 09-20-2020 Glaucoma screening Dilated Retinal E xam [facility] Start: 09-20-2020 Hepatitis C antibody , confirmatory test DILATED RETINAL EXAM [facility] Start: 08-06-2020 3 comp foot exam completed DIABETIC FOOT EXAM [facility] Start: 07-28-2020 Hemoglobin A1c measurement HbA1C [facility] Start: 07-28-2020 Hemoglobin A1c/Hemoglobin.total in Blood HBA1C [facility] Start: 05-31-2019 COLORECTAL CANCER SCREENING COLORECTAL CANCER SCREENING [facility] Start: 05-31-2019 FECAL OCCULT BLOOD FECAL OCCULT BLOO D [facility] Start: 05-31-2019 Screening for malign ant neoplasm of colon [facility] Start: 03-12-2019 Mammography MAMMOGRAM [facility] Start: 2016 SHINGRIX VACCINE (1 of 2) SHINGRIX VACCINE (1 of 2) [facility] Start: 10-12-2011 COLOGUARD (FIT-DNA) COLOGUARD (FIT-D NA) [facility] Start: 10-12-2011 Colonoscopy COLONOSCOPY [facility] Start: 10-12-[address] COLONOGRAPHY [facility] Start: 10-12-2011 Screening for malign ant neoplasm of colon [facility] Start: 10-12-2011 SIGMOIDOSCOPY SIGMOIDOSCOPY [facility] Start: 1985 HEPATITIS B (1 of 3 - Risk 3-dose series) HEPATITIS B (1 of 3 - Risk 3-dose series) [facility] Start: 1985 Hepatitis B Vaccine (1 of 3 - 19+ 3-dose series) Hepatitis B Vaccine (1 of 3 - 19+ 3-dose series) [facility] Start: 1984 HIV SCREENING HIV SCREENING [facility] Start: 1966 HEPATITIS B (1 of 3 - 3-dose series) HEPATITIS B (1 of 3 - 3-dose series) [facility] Start: 1966 Hepatitis B Vaccine (1 of 3 - 3-dose series) Hepatitis B Vaccine (1 of 3 - 3-dose series) [facility] COLOGUARD COLOGUARD Lab Ro utine Screening for colon cancer Ordered: 03/27/2023 [facility] Work Phone: Comment on above: Ordered: 03/27/2023 End: 11-16-2024 DBT Breast - bilateral screening MICKEY SCREENING [facility] Radiology Routine Encounter for screening mammogram for breast cancer 1 Occurrences starting 10/18/2023 until 11/16/2024 [facility] Work Phone: Comment on above: 1 Occurrences starti ng 10/18/2023 until 11/16/2024 End: 10-10-2025 DBT Breast - bilateral screening MICKEY SCREENING [facility] Radiology Routine Encounter for screening mammogram for breast cancer 1 Occurrences starting 09/10/2024 until 10/10/2025 [facility] Comment on above: 1 Occurrences starti ng 09/10/2024 until 10/10/2025 Hemoglobin.gastroint alexander nal.lower [Presence] in Stool by Immunoassay FECAL OCCULT BLOOD TEST Lab Routine Screening for colon cancer Ordered: 09/05/2022 [facility] Work Phone: Comment on above: Ordered: 09/05/2022 Patient Education ED Chest Wall Contusion [facility] Work Phone: End: 09-03-2022 Screening mammography bi 2-view breast inc cad [facility] SCREENING Radiology Routine Encounter for screening mammogram for breast cancer 1 Occurrences starting 08/04/2021 until 09/03/2022 [facility] Work Phone: Comment on above: 1 Occurrences starti ng 08/04/2021 until 09/03/2022 [facility] Immunizations Immunization Date Immunization Notes Care Provider Fa [facility] 03-27-2023 COVID-19 vaccine, ag e 12+ yr, 2022- season (Flux) Rusty Welch APRN.CNP Work Phone: [facility] 03-27-2023 influenza, injectabl e, quadrivalent, contains preservative Rusty Welch APRN.HURL SHAKER Work Phone: [facility] 03-27-2023 influenza virus vacc ine, unspecified formulation Malika Hernandez MD Work Phone: [facility] 09-08-2020 COVID-19 vaccine, fu ll dose (MODERNA) Urmila Elizalde APRN.HURL SHAKER Work Phone: [facility] 08-11-2020 COVID-19 vaccine, fu ll dose (MODERNA) Urmila Elizalde APRN.HURL SHAKER Work Phone: [facility] 05-04-2020 pneumococcal polysaccharide vaccine, 23 valent Urmila Elizalde APRN.HURL SHAKER Work Phone: [facility] 10-23-[address] Malika Hernandez MD Work Phone: [facility] 10-23-2018 influenza, injectabl e, quadrivalent, contains preservative Urmila Tannhof EXECUTIVE OFFICER.HURL SHAKER Work Phone: [facility] 10-23-2018 influenza, injectabl e, quadrivalent, preservative free Rusty Ayaan EXECUTIVE OFFICER.[employer] SHAKER Work Phone: [facility] 2017 influenza, injectabl e, quadrivalent, contains preservative Urmila Tannhof EXECUTIVE OFFICER.[employer] SHAKER Work Phone: [facility] 11-17-2016 influenza, injectabl e, quadrivalent, contains preservative Urmila Tannhof EXECUTIVE OFFICER.[employer] SHAKER Work Phone: [facility] 09-28-2016 pneumococcal polysaccharide vaccine, 23 valent Urmila Tannhof EXECUTIVE OFFICER.[facility] Work Phone: [facility] 09-28-2016 tetanus toxoid, redu kasi diphtheria toxoid, and acellular pertussis vaccine, adsorbed Urmila Tannhof EXECUTIVE OFFICER.[facility] Work Phone: [facility] Payers Date Payer Category Payer Self-pay 2023 [facility] BLUE CARD PPO OOS Member Subscriber Plan / Payer (Effective 2023-Present) Name: Arlette Salgado Relation to Subscriber: Self Name: Arlette Salgado Payer ID: [id number] (NAIC) Type: PPO Address: [facility] [id number] [id number] 2023 Unknown [id number] 2021 Unknown [id number] 2020 Medicaid [employer] [facility] MEDICAID [id number] 2020-Present [phone] [address] [place] [address] Medicaid [id number] 2020 Medicaid [id number] Unknown [id number] Unknown [id number] Unknown [id number] Social History Date Type Detail Facility Start: 10-25-2011 End: 09-10-2024 Tobacco smoking status IDIS Smokes tobacco daily [facility] History of tobacco use Cigarette Smoker [facility] Start: 10-25-2011 End: 09-10-2024 Cigarettes smoked current (pack per day) - Reported 0.5 [facility] Start: 10-25-2011 End: 09-10-2024 Tobacco use and exposure Smokeless tobacco non-user [facility] Start: 10-05-2020 End: 09-10-2024 Alcohol intake Current non-drinker of alcohol (finding) [facility] Start: 1965 Sex Assigned At Not on file [facility] Start: 08-17-2020 End: 09-17-2021 Exposure to SARS-CoV-2 (event) Not sure [facility] Start: 09-05-2022 End: 09-10-2024 Tobacco use panel [facility] Start: 01-08-2012 Adult Depression Screening Assessment 2 [facility] Start: 02-27-2019 Lives Lives [facility] Start: 02-28-2019 Tobacco Use Tobacco Use [facility] Start: 1965 Sex Assigned At Female W [facility] Medical Equipment Procedure Code Equipment Code Equipment Origin al Text Equipment Identifier Dates [id number], [id number], [id number], [id number], [id number], [id number], [id number] Start: 09-03-2020 End: 09-17-2024 Comment on above: Test blood sugar(s) 1 times daily. Dx: Type 2 DM - Uncontrolled E11.65 Insulin: No Use one needle per d ose. 1 per day. Inject 1 Each subcut aneously q 24 HR. Give with each insulin administration. Inject 1 Each subcut aneously every 24 hours. Give with each insulin administration. Test blood sugar(s) 1 times daily. Dx: Type 2 DM - Uncontrolled E11.65 Insulin: Yes 12MM/130 DEG TI ZENA TFNA FDA Start: 02-27-2019 5.0MM TI LOCKING SCREW FDA Start: 02-27-2019 TFNA FENESTRATED HELICAL BLADE FDA Start: 02-27-2019 Mental Status Date Assessment Result Facility 09-27-2024 Cognitive function Awake;Alert;A ppropriate;Dr andrews [facility] [place] [place] Work Phone: Clinical Notes 09-16-2020 to 10-16-2024 Telephone Encounter - Devonte More - 10/16/2024 11:30 AM EDTTelephone Encounter - Devonte More - 10/16/2024 11:30 AM EDTTelephone Encounter - Siobhan Macedo RPh - 10/16/2024 11:17 AM EDT Note Date & Type Note Facility 10-16-2024 Telephone encount er Note Telephoned the patient regarding missed appt. Unable to leave a message. [facility] 10-16-2024 Miscellaneous Notes Formattin g of this note might be different from the original. Telephoned the patient regarding missed appt. Unable to leave a message. Called patient for scheduled phone appt today (x4) but unable to reach or LMOM since voicemail box is not yet set up. [facility] Pharmacy Rescheduling Outreach Call center, please contact patient and reschedule telephone visit for Diabetes management within ~4 week(s). (Visit length: 60 minutes) Thank you, Siobhan Macedo RPh 10/16/2024 11:18 AM documented in this encounter [facility] 10-16-2024 Telephone encount er Note Called patient for scheduled phone appt today (x4) but unable to reach or LMOM since voicemail box is not yet set up. Primary Care Pharmacy Rescheduling Outreach Call center, please contact patient and reschedule telephone visit for Diabetes management within ~4 week(s). (Visit length: 60 minutes) Thank you, Siobhan Macedo RPh 10/16/2024 11:18 AM [facility] Work Phone: 09-27-2024 Discharge summary [facility] 09-27-2024 Radiology Diagnostic study note [facility] Imaging Services [address], [place] [address] Ribs Uni Min 3V w/PA Chest MR#: [id number] Acct: [id number] Name: ARLETTE SALGADO Rep #: [id number] : 1965 F 58 From: Anusha Henry MD PCP: Dr. Malika Hernandez MD Status: RE G ER Study:Ribs Uni Min 3V w/PA Chest Date of Exam : 09/27/24 Exam# [id number] Ordering Dr: Marlon Saul DO PROCEDURE: RIBS BILATERAL MIN 3V W/PA CHEST 09/27/2024 REASON FOR EXAM: LEFT POSTERIOR CHEST PAIN TECHNIQUE: RIBS BILATERAL MIN 3V W/PA CHEST COMPARISON: None. FINDINGS: LUNGS AND PLEURA: The lungs are clear. No pleural effusion or pneumothorax. HEART AND MEDIASTINUM: The heart size and mediastinal contours are normal. BONES: No acute osseous abnormality. No evidence of acute rib fracture. RAD/Ribs Uni Min 3V w/PA Chest IMPRESSION: No acute rib fracture seen. No pneumothorax. Reading Location: [id number] CC: Dr. Malika Hernandez MD; Dr. Tommy Saul DO ~ Architectural Renderer: Signed [facility] 09-27-2024 Discharge summary Note Date/Time September 27, 2024 5:44pm [facility] Medical Records Department [address] [place] [address] Emergency Department Summary 09/27/24 MR#: [id number] Acct: [id number] Name: ARLETTE SALGADO Rep #:[id number] : 1965 58 From: Tommy Dumont PCP: Dr. Malika Hernandez MD Status:RE G ER Location: ED HPI History of Present Illness Chief Complaint: Chest Other [facility] Medical History Diabetes Home Medications ?Medication ?Instructions ?Recorded ?Last Taken ?Type citalopram 40 mg tablet 40 mg PO QHS Depression/Anxi ety 02/26/19 02/25/19 22:00 History 40 mg glipizide 5 mg tablet 5 mg PO DAILY DM 02/26/19 08:00 History 5 mg insulin detemir U-100 100 unit/mL 20 units subcut QHS DM 02/26/19 02/25/19 22:00 History (3 mL) subcutaneous pen 20 units lisinopril 2.5 mg tablet 2.5 mg PO QHS BP 02/26/19 22:00 History 2.5mg metformin 500 mg tablet 500 mg PO BID DM 02/26/19 08:00 History 500 mg pravastatin 10 mg tablet 10 mg PO QHS Cholesterol 02/25/19 22:00 History 10 mg ergocalciferol (vitamin D2) 1,250 50,000 unit PO Q7D # 7 caps 03/01/19 Unknown Rx mcg (50,000 unit) capsule Allergy/AdvReac Type Severity Reaction Status Date / Time Sulfa (Sulfonamide Allergy Rash Verified 09/27/24 13:58 Antibiotics) Surgical History History of laminectomy Social History Smoking Status: Current every day smoker tobacco type: cigarettes EXAM Physical Exam Const Vital Signs: 09/27/24 13:59 09/27/24 15:36 Temperature 97.2 F L Temperature Source Temporal Pulse Rate 87 Respiratory Rate 19 H Respiratory Effort Normal Non-Labored Blood Pressure 156/95 H Blood Pressure Mean 115 Pulse Ox 100 Oxygen Delivery Method [place] Air [facility] [place] Medical decision making narrative: HISTORY OF PRESENT ILLNESS: Chief complaint: Left-sided chest pain 58-year-old female presents status post mechanical fall in the shower. Notes this occurred 4 hours ago. States she fell onto her left chest. Notes left-sided chest pain. Denies syncope. Denies head trauma loss of consciousness. Denies any vomiting. REVIEW OF SYSTEMS: Pertinent positives: Left-sided musculoskeletal chest pain Pertinent negatives: head trauma PHYSICAL EXAM: Nursing triage notes reviewed, Vital signs reviewed Constitutional: please see [facility] HENT: MMM Eyes: Pupils equal round and reactive to light, Extraocular muscles intact Neck: No stridor, no JVD, full neck ROM Lungs: Clear to auscultation, No wheezing or rales. No increased work of breathing, no conversational dyspnea, no accessory muscle use, no nasal flaring. No respiratory distress noted, no fill chest Heart: Regular rate and rhythm, No murmurs, No rubs and No gallops, 2+ distal pulses (radial, femoral, posterior tibial) in all extremities Abdomen: Soft, there is no tenderness, rigidity, rebound or guarding, no obviousperitoneal signs, no palpable pulsatile abdominal masses, no auscultated abdominal bruit : No CVAT Extremities: No edema Neuro: No new focal neurological deficits, cranial nerves II through XII intact,5/5 strength in all present extremities. Intact sensation to light touch in all present extremities, 2+ reflexes bilateral patella tendons. Skin: No rash or lesions noted, no bruising noted to left ribs MEDICAL DECISION MAKING: Chief Complaint: please see HPI External records reviewed: Reviewed prior imaging studies Factors affecting care: Type 2 diabetes, hypertension, hyperlipidemia Social determinants of health: none History obtained from others: none Consults: none [facility] Narrative: The patient was initially hemodynamically stable, afebrile and nontoxic-appearing. Exam with bilateral breath sounds. No crepitus. No flail chest noted. I considered the following differential diagnosis: Rib contusion, rib fracture,pneumothorax I obtained chest x-ray to further determine if the patient was suffering from a life-threatening etiology. Gave Tylenol, ibuprofen and lidocaine patches ALL IMAGES (IF OBTAINED) HAVE BEEN PERSONALLY REVIEWED AND INTERPRETED BY MYSELF. X-ray of the chest with ribs was negative for rib fracture Patient likely suffered rib contusion. Given symptom spirometer and discharged with pneumonia return precaution The patient and/or family, caregivers express understanding. The patient and/orfamily, caregivers agrees with the plan. Shared decision making: I will have a discussion with the patient and or visitors regarding risk/benefits of further testing or admission. They will be made aware of of the risk/benefits inherent in this decision they will be given the opportunity to voice understanding. Total critical care time today provided was at least 0 minutes. This excludes separately billable procedures. Critical care time (if documented) is secondary to the patient having high probability of clinically significant/life threatening deterioration in the patient's condition which required my urgent intervention. Impression: 1. Left-sided rib contusion 2. Fall Dispo: Discharge home This note was generated with [employer] dictation software. It may contain incorrectwords, spelling, and punctuation that were not noted in review of the chart prior to signing. Radiography Diagnostic Testing: Clinical Impression(s) from Imaging Studies Ribs w/Chest X-Ray 09/27/24 16:00 IMPRESSION: No acute rib fracture seen. No pneumothorax. Reading Location: [facility] Discharge Plan Triage Chief Complaint: Chest Other ED Provider: Tommy Saul Dx/Rx/DC Orders Prescriptions: No Action metformin 500 MG tablet 500 mg PO BID citalopram 40 MG tablet 40 mg PO QHS Patient Comments: TAKE 1 TABLET BY MOUTH EVERY DAY pravastatin 10 MG tablet 10 mg PO QHS Patient Comments: TAKE 1 TABLET BY MOUTH EVERY DAY lisinopril 2.5 MG tablet 2.5 mg PO QHS Patient Comments: TAKE 1 TABLET BY MOUTH EVERY DAY glipizide 5 MG tablet 5 mg PO DAILY Patient Comments: TAKE 1 TABLET BY MOUTH EVERY DAY insulin detemir U-100 100 UNITS/ML insulin pen 20 units subcut QHS ergocalciferol (vitamin D2) 50,000 UNIT capsule 50,000 unit PO Q7D Qty: 7 0RF Primary Care Provider: Malika Hernandez Referrals: Malika Hernandez MD [Primary Care Provider] - Print Language: Vietnamese What to do if you have Problems For any increased pain, shortness of breath, bleeding, nausea or vomiting, chestpain, or any unexpected problems, contact your Primary Care Provider. Call [facility] ([phone]) or report to the closest Emergency Room. Call 911 if necessary. 09/27/24 1744 <Electronically signed by Tommy Saul DO> Cosigner Signature (if applicable): CC: Dr. Malika Hernandez MD ~ Signed [facility] Work Phone: 1(508) 722-507008-21-2025 Telephone encounter Note* Telephone Encounter - Jany Ryan MA - 09/26/2024 9:01 AM EDT Letter mailed to pt notifying her we've been unable to reach her by phone regards lab results. Asked for call back to speak with Triage Nurse. Jany Ryan MA [facility]08-21-2025 Miscellaneous Notes* Telephone Encounter - Jany Ryan MA - 09/26/2024 9:01 AM EDT Letter mailed to pt notifying her we've been unable to reach her by phone regards lab results. Asked for call back to speak with Triage Nurse. Jany Ryan MA * Telephone Encounter - Sue Cain MA - 09/19/2024 1:49 PM EDT Tried to reach pt, VM not set up. Unable to leave message or call back number. Letter mailed to pt home asking them to call office back for results. Sue Cain MA * Telephone Encounter - Sue Cain MA - 09/17/2024 2:09 PM EDT Call to pt but unable to leave message. VM not set up. Sue Cain MA * Telephone Encounter - Rusty Welch APRN.ALEKSANDRA - 09/17/2024 1:54 PM EDT Please let the patient know that her labs show elevated cholesterol. Would recommend increasing thepravastatin to 80 mg daily. New Rx sent. Her Hgb A1c is 12.9%. I would like for her to restart her Lantus at 10 units nightly. I sent in a new prescription. I would like for her to follow the Lantus titration schedule that I provided on her aftervisit summary. Please let me know if we need to resend to her or if she does not understand it. In addition, I would like for her to speak to a clinical pharmacist about her diabetes. They do a great job with optimizing her diabetic regimen. I placed repeat labs for 3 months. The following approved medication requests have been transmitted electronically. Requested Prescriptions Signed Prescriptions Disp Refills Insulin [place], Disposable, (PEN NEEDLE) 32 gauge x 5/32 100 each 3 Sig: Inject 1 each subcutaneously every 24 hours. Give with each insulin administration. Authorizing Provider: RUSTY WELCH insulin glargine (LANTUS SOLOSTAR U-100 INSULIN) 100 unit/mL (3 mL) 3 mL 11 Sig: Inject 10 Units subcutaneously daily at bedtime. Authorizing Provider: RUSTY WELCH APRN.ALEKSANDRA [facility] Telephone encounter Note * Telephone Encounter - Berna Boucher PSS - 09/19/2024 1:51 PM EDT Telephoned the patient to schedule a new Primary Care pharmacy appt. No message left, voicemail notset-up.. [facility]08-14-2025 Miscellaneous Notes* Telephone Encounter - Berna Boucher PSS - 09/19/2024 1:51 PM EDT Telephoned the patient to schedule a new Primary Care pharmacy appt. No message left, voicemail notset-up.. * Telephone Encounter - Berna Boucher PSS - 09/18/2024 1:37 PM EDT Telephoned the patient to schedule a new Primary Care pharmacy appt. No message left, voicemail notset-up.. [facility] Telephone encounter Note * Telephone Encounter - Sue Cain MA - 09/19/2024 1:49 PM EDT Tried to reach pt, VM not set up. Unable to leave message or call back number. Letter mailed to pt home asking them to call office back for results. Sue Cain MA [facility]08-13-2025 Telephone encounter Note* Telephone Encounter - Berna Boucher PSS - 09/18/2024 1:37 PM EDT Telephoned the patient to schedule a new Primary Care pharmacy appt. No message left, voicemail notset-up.. [facility]-12-2025 Telephone encounter Note* Telephone Encounter - uSe Cain MA - 09/17/2024 2:09 PM EDT Call to pt but unable to leave message. VM not set up. Sue Cain MA [facility]08-12-2025 Telephone encounter Note* Telephone Encounter - Rusty Welch APRN.CNP - 09/17/2024 1:54 PM EDT Please let the patient know that her labs show elevated cholesterol. Would recommend increasing thepravastatin to 80 mg daily. New Rx sent. Her Hgb A1c is 12.9%. I would like for her to restart her Lantus at 10 units nightly. I sent in a new prescription. I would like for her to follow the Lantus titration schedule that I provided on her aftervisit summary. Please let me know if we need to resend to her or if she does not understand it. In addition, I would like for her to speak to a clinical pharmacist about her diabetes. They do a great job with optimizing her diabetic regimen. I placed repeat labs for 3 months. The following approved medication requests have been transmitted electronically. Requested Prescriptions Signed Prescriptions Disp Refills Insulin [place], Disposable, (PEN NEEDLE) 32 gauge x 5/32 100 each 3 Sig: Inject 1 each subcutaneously every 24 hours. Give with each insulin administration. Authorizing Provider: RUSTY WELCH insulin glargine (LANTUS SOLOSTAR U-100 INSULIN) 100 unit/mL (3 mL) 3 mL 11 Sig: Inject 10 Units subcutaneously daily at bedtime. Authorizing Provider: RUSTY WELCH APRN.ALEKSANDRA [facility]08-05-2025 Instructions* Patient Instructions* Rusty Welch APRN.CNP - 09/10/2024 9:19 AM EDT We discussed your diabetes and neuropathy: - [...] Please schedule these with your primary care provider.No referral is needed. Follow-up: - Please schedule [...] target fasting blood sugar level consistently (80-130) documented in this encounterAv[facility]25 History of Present illness Narrative* Rusty Welch APRN.CNP - 09/10/2024 9:00 AM EDT Chief Complaint Patient presents with: Physical HPI [...] TONSILLECTOMY HX 1977 TUBAL LIGATION HX 2007 Family History FAMILY HISTORY Problem Relation Age [...] (Patient not taking: Reported on 03/27/2023) Insulin Arapahoe, Disposable, (PEN NEEDLE) 32 gauge x 5/32 [...] 9.6 oz) LMP 05/02/2014 (Approximate) BMI 21.69 kg/m General Appearance: Well appearing, alert, in no [...] insulin for about a year. - Ordered Dexcom G7 CGM to monitor blood glucose levels [...] schedule a mammogram at the local clinic. Rusty Welch APRN.CNP RTO in 3 months, sooner if needed. This note was partly generated using [employer] voice recognition dictation and may contain some misspelled or inaccurate words missed on review. Recording using P[employer] software for draft documentation of the visit was discussed with the patient/authorized technical sales representatives; all questions welcomed and answered. Patient/authorized technical sales representatives agreed to proceed documented in this encounterAvita Health System08-05-2025 NoteHNO ID: [id number] Author: RUSTY WELCH APRN.CNP Service: ? Author Type: Nurse Practitioner Type: [...] (Patient not taking: Reported on 03/27/2023) Insulin Arapahoe, Disposable, (PEN NEEDLE) 32 gauge x 5/32 [...] size Lungs: Lungs clear to auscultation. No wheezing (more content not included)... [facility]02-10-2025 Instructions* Patient Instructions* Alyce Starks APRN.HURL SHAKER - 03/18/2024 4:22 PM EST [facility] PATIENT INFO INFLUENZA INTRODUCTION Influenza (commonly called the flu) is a highly contagious illness that can occur in children or adults of any age. It occurs more often in the winter months because people spend more time in close contact with one another. The flu is spread easily from futzbp-jv-nqtoin by coughing, sneezing, or touching surfaces. Every [...] but usually include: Fever (temperature higher than 100 F or 37.8 C) Headache and muscle aches Fatigue Cough and [...] age of 65, people who live in intermediate manager care facilities (nursing homes), and those with [...] you to feel better, but will not makethe flu go away faster. Rest until the flu is fully resolved, especially if the illness has been severe Fluids -- Drink enough fluids so that you do not become dehydrated. One way to tribal judge if you are drinking enough is to look at the color of your urine. Normally, urine should be light yellow to nearlycolorless. If you are drinking enough, you should pass urine every three to five hours. Acetaminophen (such as Tylenol and other brands) can relieve fever, headache, [...] of the flu such as bacterial pneumonia, earinfection, or sinusitis. Antibiotics can cause side effects and lead to development of antibiotic resistance. documented in this encounterAvita Health System02-10-2025 NoteHNO ID: [id number] Author: ALYCE STARKS APRN.CNP Service: ? Author Type: Nurse Practitioner Type: [...] (Patient not taking: Reported on 03/27/2023) Insulin Arapahoe, Disposable, (PEN NEEDLE) 32 gauge x 5/32 [...] tenderness or frontal sinus tenderness. Mouth/Throat: Lips: Toxey. Mouth: Mucous membranes are moist. Pharynx: Postnasal [...] Her last known GFR was 2020. She (more content not included)...[facility]02-10-2025 History of Present illness Narrative* Alyce Starks APRN.HURL SHAKER - 03/18/2024 4:06 PM EST CC: Patient presents with: Cough: Cough, chest congestion, chills, fever and bodyaches x 3 days HPI Arlette Salgado is a 58 year old female who smokes and presents today for productive cough-white phlegm, nasal congestion-clear drainage, body aches, chills and nausea with decreased appetite since Monday. Today she reports feeling some better. She has been taking ibuprofen for her body aches buthas used nothing else for her other symptoms. [...] (Patient not taking: Reported on 03/27/2023) Insulin Arapahoe, Disposable, (PEN NEEDLE) 32 gauge x 5/32 [...] BP 118/76 Pulse (!) 57 Temp 36.7 C (98.1 F) (Tympanic) Resp 18 Wt 56.2 kg (123 lb 14.4 oz) LMP 05/02/2014 (Approximate) SpO2 100% BMI 22.66 kg/m Physical Exam HENT: Right Ear: Tympanic membrane normal. Left Ear: Tympanic membrane normal. Nose: Rhinorrhea present. Rhinorrhea is clear. Right Turbinates: Swollen. Left Turbinates: Swollen. Right Sinus: No maxillary sinus tenderness or frontal sinus tenderness. Left Sinus: No maxillary sinus tenderness or frontal sinus tenderness. Mouth/Throat: Lips: Toxey. Mouth: Mucous membranes are moist. Pharynx: Postnasal [...] would like to proceed with a prescription forTamiflu. DECLINES renal testing - Discussed viral etiology [...] sent to pharmacy - TAMIFLU - INFLUENZA A&B MOLECULAR (POC) Prescription instructions reviewed with patient as applicable. Potential red flag symptoms discussed with the patient. Reviewed appropriate action plan to take if red flag symptoms occur. Patient agreeable to treatment plan. Charmaine Jonas TEACHING PROVIDER (Physician/PA/EXECUTIVE OFFICER) NOTE OF PERSONAL INVOLVEMENT IN CARE: I have personally seen and examined the patient and performed the medical decision-making components. I have reviewed the Advanced Practice Registered Nurse (EXECUTIVE OFFICER) Student's documentation and verified the findings in the note as written. Any additions or changes are noted in bold/italics. Signature: Alyce Starks Date: 03/18/2024 Time: 5:14 PM documented in this encounterAvita Health System04-04-2024 Miscellaneous Notes* Telephone Encounter - Alisha Gupta OCCA - 05/11/2023 8:49 AM EDT TC to patient who verbalized understanding of below and has no questions at this time. DAGOBERTO Parra * Telephone Encounter - Sridevi Mendoza LPN - 05/10/2023 8:26 AM EDT Attempted to reach pt by phone without success. No voicemail set up. Try later. Sridevi Mendoza LPN * Telephone Encounter - Sridevi Mendoza LPN - 05/10/2023 8:26 AM EDT ----- Message from Rusty Welch APRN.CNP sent at 05/10/2023 6:50 AM EDT ----- Please let the patient know that her cologuard was normal. The result is good for 3 years. Rusty Welch CNP documented in this encounterAvita Health System02-19-2024 Instructions* Patient Instructions* Rusty Welch APRN.CNP - 03/27/2023 9:48 AM EST Meds refill Flu and covid vaccine given Get labs Start checking BG fasting in the morning and record. Meter and supplies sent. Cologuard will come to house Schedule with women's health and Dr. Espitia for eye check. We will call in Lantus if needed based on blood work. TBD. Rusty Welch APRN.CNP documented in this encounterAvita Health System02-19-2024 History of Present illness Narrative* Rusty Welch APRN.CNP - 03/27/2023 9:20 AM EST Chief Complaint Patient presents with: Physical Immunizations: Flu vaccination HPI Arlette Salgado is a 57 year old female who presents here today for Chronic Medical Conditions. Here for extensive exam. Has not been seen for quite some time. Would like to get influenza vaccinetoday and covid vaccine. Due for colon cancer screening. DM: Taking metformin and glipizide. Ran out insulin due to insurance lapse. Has not been using Lantus 25 units nightly. Due for eye exam. Has not been checking her BG, due to not having supplies. Not taking her lisinopril 2.5 mg. BP is good today. We were prescribing for renal protection. HYPERLIPIDEMIA: Patient is taking medications: No. Not taking pravastatin. Patient is watching diet: Yes. Patient denies myalgias: Yes. Patient denies gi upset: Yes Taking Celexa 40 mg daily. Doing okay, needs refilled. Past medical history, appointments, medications, allergies reviewed. EXAM: BP 108/75 Pulse 80 Temp 36.1 C (97 F) (Left Tympanic) Resp 16 Ht 157.5 cm (5' 2) Wt 58.7kg (129 lb 6.4 oz) LMP 05/02/2014 (Approximate) SpO2 100% BMI 23.67 kg/m General Appearance: Well appearing, alert, in no acute distress, well-hydrated, well nourished.. Head: Normocephalic, no masses, lesions, tenderness or abnormalities. Eyes: Anicteric sclera. Pupils are equally round and reactive to light. Extraocular movements are intact. . Neck: Supple, no adenopathy; thyroid symmetric, normal size, no bruits. Lungs: Lungs clear to auscultation. No wheezing, rhonchi, rales.. Heart: RRR without murmur, gallop, or rubs. No ectopy. Abdomen: Normal abdominal exam, Abdomen soft, non-tender. Bowel sounds normal. No masses, organomegaly. Extremities: No deformities, edema Lymph Nodes: No cervical lymphadenopathy and No supraclavicular lymphadenopathy. Feet:Shoes and socks removed, No deformities, ulcers, calluses, normal distal pulses, and not sensitive to monofilament on left foot, 1st through 4th toe, 5th toe is desensitized. On the right foot toes 1-5 are desensitized. ASSESSMENT/PLAN: 1. Type 2 diabetes mellitus without complication, with long-term current use of insulin ([facility]) - ICD9: 250.00, V58.67, ICD10: E11.9, Z79.4 (primary diagnosis) - Control undetermined, due for labs. Get labs, start checking blood sugar daily. Likely will need to restart Lantus. - Continue current medications - Statin prescribed - pravastatin - Blood glucose monitoring on a once daily schedule - Referral to Ophthalmology/optometry for diabetic eye exam - ALBUMIN/CREAT RATIO RND UR - LIPID PANEL BASIC - HGB A1C - COMP METABOLIC PANEL - CBC + DIFF - BLOOD SUGAR DIAGNOSTIC STRIPS - BLOOD-GLUCOSE METER KIT - LANCETS - METFORMIN ER 500 MG TABLET,EXTENDED RELEASE 24 HR - GLIPIZIDE 5 MG TABLET - LISINOPRIL 2.5 MG TABLET 2. Need for influenza vaccination - ICD9: V04.81, ICD10: Z23 - INFLUENZA VACCINE, AGE 6 MO - 64 YR, QUADRIVALENT (AFLURIA, FLULAVAL, FLUZONE) 3. Screening for colon cancer - ICD9: V76.51, ICD10: Z12.11 - COLOGUARD 4. Depression, unspecified depression type - ICD9: 311, ICD10: F32.A -Stable continue Celexa - CITALOPRAM 40 MG TABLET 5. Hyperlipidemia, mixed - ICD9: 272.2, ICD10: E78.2 - Control undetermined, due for labs - Start pravastatin (Pravachol) - Counseled on healthy diet and regular exercise - PRAVASTATIN 40 MG TABLET 6. Hypertension, essential - ICD9: 401.9, ICD10: I10 -Good control. Add back lisinopril 2.5 mg for renal protection. 7. Anxiety - ICD9: 300.00, ICD10: F41.9 -Stable continue Celexa as prescribed - CITALOPRAM 40 MG TABLET 8. Screening for diabetic retinopathy - ICD9: V80.2, ICD10: Z13.5 - CONSULT TO OPHTHALMOLOGY 9. Encounter for immunization - ICD9: V03.89, ICD10: Z23 - PFIZER-BIONTECH COVID-19 VACCINE (2022- [place]) AGE 12+ YR 10. Screening for cervical cancer - ICD9: V76.2, ICD10: Z12.4 - CONSULT TO [facility] Rusty Welch APRN.CNP RTO in 3 months, sooner if needed. This note was partly generated using [employer] voice recognition dictation and may contain some misspelled or inaccurate words missed on review. documented in this encounterAvita Health System08-09-2023 Miscellaneous Notes* Telephone Encounter - Urmila Elizalde APRN.CNP - 09/14/2022 3:46 PM EDT The following approved medication requests have been transmitted electronically. Requested Prescriptions Signed Prescriptions Disp Refills insulin glargine (LANTUS SOLOSTAR U-100 INSULIN) 100 unit/mL (3 mL) 8 mL 11 Sig: Inject 25 Units subcutaneously daily at bedtime. Authorizing Provider: URMILA ELIZALDE APRN.CNP * Telephone Encounter - Elsa Mckenzie Ma - 09/14/2022 2:26 PM EDT [facility] Please select alternative and send Humalog kwikpen Humalog 50/50 kwikpen Humalog 75/25 kwikpen Lantus solostar Levemi flex touch Novolog flexpen Elsa Mckenzie Ma * Telephone Encounter - Heather Mclain LPN - 09/14/2022 2:12 PM EDT PRIOR AUTHORIZATION Medication for Prior Authorization: Basaglar insulin Other formulary meds available : NO Insurance Company: [employer] phone number: none on her card Patient insurance ID number: [id number] Heather Mclain LPN Patient is out of Basaglar insulin she had been on Lantus previously. documented in this encounterAvita Health System07-31-2023 Instructions* Patient Instructions* Rusty Welch APRN.CNP - 09/05/2022 9:12 AM EDT Get blood work completed Complete stool kit. I would recommend cutting Celexa in half when you restart for 1-2 weeks, and then go to whole tablet. Schedule mammogram Start oral Terbinafine for 12 weeks for left toe fungus. Follow up in 3 months Rusty Welch APRN.CNP documented in this encounterAvita Health System07-31-2023 History of Present illness Narrative* Rusty Welch APRN.CNP - 09/05/2022 9:09 AM EDT Chief Complaint Patient presents with: Yearly Exam HPI Arlette Salgado is a 56 year old female who presents here today for Chronic Medical Conditions. HTN: Patient is compliant with meds No Ran out of her medication for about a month due to insuranceissues Monitors bp at home: No. Denies side effects: Yes. Chest pain: No. Dyspnea: No. Edema: No. Palpitations: No. Syncope: No. Headache: No. Dizziness: No. DM: Reports overall feeling well. Medication side effects: No. Home sugar checks: has not Hypoglycemic spells: No. Watching diet: Yes. Unexpected weight loss: No. Polyuria, polydipsia: maybe a few days where she will urinate more than usual Vision Changes: No. Foot lesions or numbness or pain: Yes. HYPERLIPIDEMIA: Patient is taking medications: Yes. Patient is watching diet: Yes. Patient denies myalgias: Yes. Patient denies gi upset: Yes Anxiety: Prescribed Celexa 40 mg. Feels like she needs it. Working again for 1st time in 30 years. Working 3 times a week at local [employer]. Due for colon cancer screening. Left foot first toe has thickening, brittleness, yellowing present. Past medical history, appointments, medications, allergies reviewed. EXAM: BP 132/88 Pulse 71 Temp 36.6 C (97.8 F) (Oral) Resp 16 Ht 156.2 cm (5' 1.5) Wt 62.4 kg (137 lb 9.6 oz) LMP 05/02/2014 (Approximate) SpO2 98% BMI 25.58 kg/m General Appearance: Well appearing, alert, in no acute distress, well-hydrated, well nourished.. Skin: Left foot: First toe has thickened, brittle, yellow nail. Slight thickening and yellowing of the second toe.. Head: Normocephalic, no masses, lesions, tenderness or abnormalities. Eyes: Anicteric sclera. Pupils are equally round and reactive to light. Extraocular movements are intact. . Lungs: Lungs clear to auscultation. No wheezing, rhonchi, rales.. Heart: RRR without murmur, gallop, or rubs. No ectopy. Abdomen: Normal abdominal exam, Abdomen soft, non-tender. Bowel sounds normal. No masses, organomegaly. Extremities: No deformities, edema ASSESSMENT/PLAN: 1. Type 2 diabetes mellitus without complication, with long-term current use of insulin ([facility]) - ICD9: 250.00, V58.67, ICD10: E11.9, Z79.4 (primary diagnosis) - Control undetermined, due for labs -Likely will be uncontrolled given she has been off of her insulin and oral medications for the past 1 month. We will check hemoglobin A1c today, repeat hemoglobin A1c again in 3 months likely make no medication changes. - HGB A1C - ALBUMIN/CREAT RATIO RND UR - COMP METABOLIC PANEL - CBC + DIFF - LISINOPRIL 2.5 MG TABLET - GLIPIZIDE 5 MG TABLET - METFORMIN ER 500 MG TABLET,EXTENDED RELEASE 24 HR - INSULIN GLARGINE (U-100) 100 UNIT/ML (3 ML) SUBCUTANEOUS PEN - PEN NEEDLE, DIABETIC 32 GAUGE X 5/32 - BLOOD GLUCOSE TEST STRIPS - LANCETS 2. Hypertension, essential - ICD9: 401.9, ICD10: I10 - Controlled - Continue current medications - Recommend home blood pressure monitoring, to bring results to next visit - Encouraged sodium restriction, DASH or Mediterranean diet - Recommend regular aerobic exercise - COMP METABOLIC PANEL - CBC + DIFF 3. Hyperlipidemia, mixed - ICD9: 272.2, ICD10: E78.2 - Control undetermined, due for labs - Continue current medications - Counseled on healthy diet and regular exercise - LIPID PANEL BASIC - COMP METABOLIC PANEL - PRAVASTATIN 40 MG TABLET 4. Depression, unspecified depression type - ICD9: 311, ICD10: F32.A -Stable on Celexa. Discussed starting at 20 mg for 2 weeks and then can go back to 40 mg. - CITALOPRAM 40 MG TABLET 5. Screening for colon cancer - ICD9: V76.51, ICD10: Z12.11 - FECAL OCCULT BLOOD TEST 6. Anxiety - ICD9: 300.00, ICD10: F41.9 --Stable on Celexa. Discussed starting at 20 mg for 2 weeks and then can go back to 40 mg. - CITALOPRAM 40 MG TABLET 7. Onychomycosis - ICD9: 110.1, ICD10: B35.1 -Treat with terbinafine for 12 weeks. - TERBINAFINE HCL 250 MG TABLET Rusty Welch APRN.ALEKSANDRA RTO in 3 months, sooner if needed. Schedule mammogram today. This note was partly generated using [employer] voice recognition dictation and may contain some misspelled or inaccurate words missed on review. documented in this encounterAvita Health System05-18-2023 Miscellaneous Notes* Telephone Encounter - Gabby Castañeda LPN - 06/23/2022 9:37 AM EDT TC to Pt. Pt stated she is waiting for her new DEMAND[employer] card and will make appt. Gabby Castañeda LPN documented in this encounterAvita Health System08-04-2022 Miscellaneous Notes* Telephone Encounter - Urmila Elizalde APRN.CNP - 09/09/2021 6:54 AM EDT The following approved medication requests have been transmitted electronically. Pending Prescriptions Disp Refills CITALOPRAM 40 MG TABLET 90 tablet 3 Sig: Take 1 tablet by mouth once daily. ONI: No PRAVASTATIN 40 MG TABLET 90 tablet 3 Sig: Take 1 tablet by mouth once daily. ONI: No METFORMIN ER 500 MG TABLET,EXTENDED RELEASE 24 HR 180 tablet 3 Sig: TAKE 2 TABLETS BY MOUTH EVERY DAY WITH BREAKFAST ONI: No GLIPIZIDE 5 MG TABLET 90 tablet 3 Sig: Take 1 tablet by mouth once daily. ONI: No LEVEMIR FLEXTOUCH U-100 INSULIN 100 UNIT/ML (3 ML) SUBCUTANEOUS PEN 6 Pen 2 Sig: Inject 25 Units subcutaneously daily at bedtime. ONI: No PEN NEEDLE, DIABETIC 31 GAUGE X 5/16 100 Each 11 Sig: Use one needle per dose. 1 per day. ONI: No LANCETS 100 Each 11 Sig: Test blood sugar(s) 1 times daily. Dx: Type 2 DM - Uncontrolled E11.65 Insulin: No ONI: No LISINOPRIL 2.5 MG TABLET 90 tablet 3 Sig: Take 1 tablet by mouth once daily. ONI: No Urmila Elizalde APRN.CNP * Telephone Encounter - Sarah Quach RN - 09/08/2021 3:42 PM EDT Pt reports she is switching pharmacies and wants all of her medication switched. Pt reports that she is out of most of her medications. Patient has been identified by name and date of : Yes Patient phones for refill(s): Pending Prescriptions Disp Refills CITALOPRAM 40 MG TABLET 90 tablet 3 Sig: Take 1 tablet by mouth once daily. ONI: No PRAVASTATIN 40 MG TABLET 90 tablet 3 Sig: Take 1 tablet by mouth once daily. ONI: No METFORMIN ER 500 MG TABLET,EXTENDED RELEASE 24 HR 180 tablet 3 Sig: TAKE 2 TABLETS BY MOUTH EVERY DAY WITH BREAKFAST ONI: No GLIPIZIDE 5 MG TABLET 90 tablet 3 Sig: Take 1 tablet by mouth once daily. ONI: No LEVEMIR FLEXTOUCH U-100 INSULIN 100 UNIT/ML (3 ML) SUBCUTANEOUS PEN 6 Pen 2 Sig: Inject 25 Units subcutaneously daily at bedtime. ONI: No PEN NEEDLE, DIABETIC 31 GAUGE X 5/16 100 Each 11 Sig: Use one needle per dose. 1 per day. ONI: No LANCETS 100 Each 11 Sig: Test blood sugar(s) 1 times daily. Dx: Type 2 DM - Uncontrolled E11.65 Insulin: No ONI: No LISINOPRIL 2.5 MG TABLET 90 tablet 3 Sig: Take 1 tablet by mouth once daily. ONI: No Date of last office visit in primary care: 09/16/20 Future visit: 09/17/21 Last 2 Encounter Wt Readings: Date: Wt: 10/05/2020 65.3 kg (144 lb) 04/28/2020 68.5 kg (151 lb) Previous labs/tests for medication: Diabetes: Hemoglobin A1C (%) Date Value 04/27/2020 13.7 10/19/2018 7.9 Cholesterol: HDL Cholesterol (mg/dL) Date Value 04/27/2020 38 LDL Cholesterol (mg/dL) Date Value 04/27/2020 Unable to calculate due to increased Triglycerides. See LDL-Chol, Direct. ALT (U/L) Date Value 04/27/2020 38 Non HDL Cholesterol (mg/dL) Date Value 04/27/2020 198 Liver Function: ALT (U/L) Date Value 04/27/2020 38 AST (U/L) Date Value 04/27/2020 28 Please advise. Thank you. Sarah Quach RN documented in this encounterAvita Health System04-11-2022 History of Present illness Narrative* Gabby Castañeda LPN - 05/17/2021 3:43 PM EDT TC to Pt. Unable to LM due to the mailbox is not set up. Will try again later. Gabby Castañeda LPN * Urmila Elizalde APRN.HURL SHAKER - 05/17/2021 11:58 AM EDT Can you please call the patient and let her know that she is overdue for chronic care management/appointment. Fasting lab orders are in, please have the patient get these completed 1 week prior to visit. Please let me know if she has any questions. Thank you. Urmila Elizalde APRN.ALEKSANDRA documented in this encounterAvita Health System08-11-2021 History of Present illness Narrative* Elayne Chicas RT(R) - 09/16/2020 12:20 PM EDT Radiology Service Progress Note PATIENT NAME: Arlette Salgado DATE OF SERVICE: September 16, 2020 TIME: 12:16 PM PATIENT IDENTITY VERIFICATION COMPLETED USING TWO (2) IDENTIFIERS: Name and Date of confirmedby patient verbally. FALL SCREENING: Has the patient had 2 falls in the last year or 1 fall with injury or currently using an Ambulatory Assistive Device (Walker, Cane, Wheelchair, Crutches, etc.)? No PATIENT GENDER DATA: Female. status: : No status: NO. PATIENT RELEVANT IMPLANT DATA REVIEWED: Yes RADIOLOGY DEPARTMENT: General X-ray: Exam(s) Completed: Pelvis X-Ray: Pelvis with Hip Right PERIPHERAL IV DATA: Not applicable SIGNED BY: RT Steve(R) September 16, 2020 12:16 PM [facility]* Diagnosis Type 2 diabetes mellitus with unspecified complications (HCC)- Primary documented in this encounter [facility]* Diagnosis Encounter for screening mammogram for breast cancer documented in this encounter [facility]* Diagnosis Depression, unspecified depression type Anxiety Anxiety state, unspecified Hyperlipidemia, mixed Mixed hyperlipidemia Type 2 diabetes mellitus without complication, without long-term current use of insulin (HCC) documented in this encounter [facility] note* Diagnosis Type 2 diabetes mellitus without complication, with long-term current use of insulin (HCC)- Primary Hypertension, essential Unspecified essential hypertension Hyperlipidemia, mixed Mixed hyperlipidemia Depression, unspecified depression type Screening for colon cancer Special screening for malignant neoplasms, colon Anxiety Anxiety state, unspecified Onychomycosis Dermatophytosis of nail [facility]* Diagnosis Type 2 diabetes mellitus without complication, with long-term current use of insulin (HCC)- Primary Need for influenza vaccination Need for prophylactic vaccination and inoculation against influenza Screening for colon cancer Special screening for malignant neoplasms, colon Depression, unspecified depression type Hyperlipidemia, mixed Mixed hyperlipidemia Hypertension, essential Unspecified essential hypertension Anxiety Anxiety state, unspecified Screening for diabetic retinopathy Screening for other eye conditions Encounter for immunization Need for other specified prophylactic vaccination against single bacterial disease Screening for cervical cancer Screening for malignant neoplasm of the cervix documented [facility]* Diagnosis Hip pain Pain in joint, pelvic region and thigh documented in this encounter [facility]* Diagnosis Influenza A- Primary Influenza with other respiratory manifestations URI, acute Acute upper respiratory infections of unspecified site documented in this encounter [facility]* Diagnosis Wellness examination- Primary Type 2 diabetes mellitus with diabetic polyneuropathy, with long-term current use of insulin (HCC) Hyperlipidemia, mixed Mixed hyperlipidemia Hypertension, essential Unspecified essential hypertension Depression, unspecified depression type Anxiety Anxiety state, unspecified Encounter for screening mammogram for breast cancer [facility]* Diagnosis Type 2 diabetes mellitus with diabetic polyneuropathy, with long-term current use of insulin (HCC)- Primary Type 2 diabetes mellitus without complication, with long-term current use of insulin (HCC) documented [facility] noteNo assessment information availableWMercy Health St. [facility] Work Phone: Hospital Discharge instructionsAdditional Instructions Thank you for trusting us with your care today! Your x-ray was reassuring. Please use incentive spirometer is much as poss Please take Tylenol (2 pills, 650 mg), ibuprofen (2 pills, 400 mg) every 6 hours as needed for pain and fever control. Please go to local pharmacy abduction obtain Salonpas lidocaine patch Please return to the emergency department if your symptoms change or worsen. Please follow with your primary care physician for further outpatient evaluation and management.[facility] Work Phone: Reason for referral (narrative)* Diagnostic Procedure Only (Routine) - Pending Review Specialty Diagnoses / Procedures Referred By Naveen herrera Referred To Contact [facility] Diagnoses Encounter for screening mammogram for breast cancer Procedures MICKEY SCREENING SCREENING MAMMOGRAPHY BI 2-VIEW BREAST INC Malika Schultz MD [address] [place] [address] [facility] [address] [place] [address] Referral ID Status Reason Start Date Expiration Date Visits Requested Visits Authorized [id number] Pending Review Auto-Generat ed Referral 08/04/2021 09/03/2022 1 1 [facility] for referral (narrative)* Diagnostic Procedure Only (Routine) - New Request Specialty Diagnoses / Procedures Referred By Naveen herrera Referred To Contact [facility] Diagnoses Encounter for screening mammogram for breast cancer Procedures MICKEY SCREENING W NORMA SCREENING DIGITAL BREAST TOMOSYNTHESIS BI SCREENING MAMMOGRAPHY BI 2-VIEW BREAST INC Malika Schultz MD [address] [place] [address] [facility] [address] [place] [address] Referral ID Status Reason Start Date Expiration Date Visits Requested Visits Authorized [id number] New Request Auto-Generat ed Referral 10/18/2023 11/16/2024 1 1 [facility] for referral (narrative)* Diagnostic Procedure Only (Routine) - Closed Specialty Diagnoses / Procedures Referred By Naveen herrera Referred To Contact XR IMAGING Diagnoses Hip pain Procedures XR HIP GENERAL 3V PELV/AP/LAT RT RADEX HIP UNILATERAL WITH PELVIS 2-3 VIEWS Juliann Wagoner, HURL SHAKER [address] [place] [address] [place] [address] Referral ID Status Reason Start Date Expiration Date V isits Requested Visits Authorized [id number] Closed Auto-Generate d Referral 09/16/2020 10/16/2021 [facility]No reason for referral information availableWMercy Health St. [facility] Work Phone: Reason for visit Narrative* Diagnostic Procedure Only (Routine) - Closed Specialty Diagnoses / Procedures Referred By Contac t Referred To Contact XR IMAGING Diagnoses Hip pain Procedures XR HIP GENERAL 3V PELV/AP/LAT RT RADEX HIP UNILATERAL WITH PELVIS 2-3 VIEWS Juliann Wagoner, EXECUTIVE OFFICER.HURL SHAKER [address] [place] [address] [place] [address] Referral ID Status Reason Start Date Expiration Date V isits Requested Visits Authorized [id number] Closed Auto-Generate d Referral 09/16/2020 10/16/2021 1 1 [facility] Reason for Referral Specialty Diagnoses / Procedures Referred By Contac t Referred To Contact Urmila Elizalde, EXECUTIVE OFFICER.[employer] SHAKER [address] [place] [address] Referral ID Status Reason Start Date Expiration Date Visits Re quested Visits Authorized [id number] Closed 1 1 Specialty Diagnoses / Procedures Referred By Contac t Referred To Contact Diagnoses Screening for cervical cancer Procedures CONSULT TO WOMEN'S HEALTH OFFICE/OUTPATIENT [facility] 60 MINUTES Rusty Welch, EXECUTIVE OFFICER.[employer] SHAKER [address] [place] [address] Referral ID Status Reason Start Date Expiration Date Visits Requested Visits Authorized [id number] Authorized PCP Requested Referral Auto-Generate d Referral 03/27/2023 03/26/2024 1 1 Specialty Diagnoses / Procedures Referred By Contac t Referred To Contact Ophthalmology Diagnoses Screening for diabetic retinopathy Procedures CONSULT TO OPHTHALMOLOGY OFFICE/OUTPATIENT [facility] 60 MINUTES Rusty Welch, EXECUTIVE OFFICER.[employer] SHAKER [address] [place] [address] Referral ID Status Reason Start Date Expiration Date Visits Requested Visits Authorized [id number] Authorized PCP Requested Referral 03/27/2023 03/26/2024 1 1 Chief Complaint and Reason for Visit Chief Complaint Admit Date L sided CP September 27, 2024 1: 58pm Advance Directives No Advanced Directives Records Found Advance Directive Response Recorded Date/ Time Do you have a Healthcare Power of Director Equipment? No September 27, 2024 3:36pm Summary Purpose Family History No Family History Records FoundNo Family History Records Found Additional Source Comments Source Comments (unrecognize d section and content) In the event this informatio n is protected by the Federal Confidentiality of Alcohol and Drug Abuse Patient Records regulations: The Federal rules restrict any use of the information to criminally investigate or prosecute any alcohol or drug abuse patient.[facility] System[facility] the event this information is protected by the Federal Confidentiality of Alcohol and Drug Abuse Patient Records regulations: The Federal rules restrict any use of the information to criminally investigate or prosecute any alcohol or drug abuse patient.[facility] SystemIn the event this information is protected by the Federal Confidentiality of Alcohol and Drug Abuse Patient Records regulations: The Federal rules restrict any use of the information to criminally investigate or prosecute any alcohol or drug abuse patient.[facility] SystemIn the event this information is protected by the Federal Confidentiality of Alcohol and Drug Abuse Patient Records regulations: The Federal rules restrict any use of the information to criminally investigate or prosecute any alcohol or drug abuse patient.[facility] SystemIn the event this information is protected by the Federal Confidentiality of Alcohol and Drug Abuse Patient Records regulations: The Federal rules restrict any use of the information to criminally investigate or prosecute any alcohol or drug abuse patient.[facility] SystemIn the event this information is protected by the Federal Confidentiality of Alcohol and Drug Abuse Patient Records regulations: The Federal rules restrict any use of the information to criminally investigate or prosecute any alcohol or drug abuse patient.[facility] SystemIn the event this information is protected by the Federal Confidentiality of Alcohol and Drug Abuse Patient Records regulations: The Federal rules restrict any use of the information to criminally investigate or prosecute any alcohol or drug abuse patient.[facility] SystemIn the event this information is protected by the Federal Confidentiality of Alcohol and Drug Abuse Patient Records regulations: The Federal rules restrict any use of the information to criminally investigate or prosecute any alcohol or drug abuse patient.[facility] SystemIn the event this information is protected by the Federal Confidentiality of Alcohol and Drug Abuse Patient Records regulations: The Federal rules restrict any use of the information to criminally investigate or prosecute any alcohol or drug abuse patient.[facility] SystemIn the event this information is protected by the Federal Confidentiality of Alcohol and Drug Abuse Patient Records regulations: The Federal rules restrict any use of the information to criminally investigate or prosecute any alcohol or drug abuse patient.[facility] SystemIn the event this information is protected by the Federal Confidentiality of Alcohol and Drug Abuse Patient Records regulations: The Federal rules restrict any use of the information to criminally investigate or prosecute any alcohol or drug abuse patient.[facility] SystemIn the event this information is protected by the Federal Confidentiality of Alcohol and Drug Abuse Patient Records regulations: The Federal rules restrict any use of the information to criminally investigate or prosecute any alcohol or drug abuse patient.[facility] SystemIn the event this information is protected by the Federal Confidentiality of Alcohol and Drug Abuse Patient Records regulations: The Federal rules restrict any use of the information to criminally investigate or prosecute any alcohol or drug abuse patient.[facility] SystemIn the event this information is protected by the Federal Confidentiality of Alcohol and Drug Abuse Patient Records regulations: The Federal rules restrict any use of the information to criminally investigate or prosecute any alcohol or drug abuse patient.[facility] SystemIn the event this information is protected by the Federal Confidentiality of Alcohol and Drug Abuse Patient Records regulations: The Federal rules restrict any use of the information to criminally investigate or prosecute any alcohol or drug abuse patient.[facility] Care Teams (unrecognized sec tion and content) Global Compensation Analyst Relationship Specialty Start Date End Date Malika Hernandez MD [address] [place] [address] PCP - General Family Practice 09/28/16 Global Compensation Analyst Relationship Specialty Start Date End Date Malika Hernandez MD [address] [place] [address] PCP - General Family Practice 09/28/16 Global Compensation Analyst Relationship Specialty Start Date End Date Malika Hernandez MD [address] [place] [address] PCP - General Family Medicine 09/28/16 Global Compensation Analyst Relationship Specialty Start Date End Date Malika Hernandez MD [address] [place] [address] PCP - General Family Medicine 09/28/16 Global Compensation Analyst Relationship Specialty Start Date End Date Malika Hernandez MD [address] [place] [address] PCP - General Family Medicine 09/28/16 Global Compensation Analyst Relationship Specialty Start Date End Date Malika Hernandez MD [address] [place] [address] PCP - General Family Medicine 09/28/16 Global Compensation Analyst Relationship Specialty Start Date End Date Malika Hernandez MD [address] [place] [address] PCP - General Family Medicine 09/28/16 Global Compensation Analyst Relationship Specialty Start Date End Date Malika Hernandez MD [address] [place] [address] PCP - General Family Medicine 09/28/16 Global Compensation Analyst Relationship Specialty Start Date End Date Malika Hernandez MD [address] [place] [address] PCP - General Family Medicine 09/28/16 Global Compensation Analyst Relationship Specialty Start Date End Date Malika Hernandez MD [address] [place] [address] PCP - General Family Medicine 09/28/16 Urmila Elizalde APRN.[employer] SHAKER [address] [place] [address] Lead Etl Developer Family Medicine 01/14/24 Rusty Welch APRN.[employer]URL SHAKER [address] [place] [address] Lead Etl Developer Family Medicine 01/23/24 Global Compensation Analyst Relationship Specialty Start Date End Date Malika Hernandez MD [address] [place] [address] PCP - General Family Medicine 09/28/16 Rusty Welch APRN.[employer] SHAKER [address] [place] [address] Lead Etl Developer Family Medicine 01/23/24 Global Compensation Analyst Relationship Specialty Start Date End Date Malika Hernandez MD [address] [place] [address] PCP - General Family Medicine 09/28/16 Rusty Welch EXECUTIVE OFFICER.[employer]URL SHAKER [address] [place] [address] Lead Etl Developer Family Medicine 01/23/24 Global Compensation Analyst Relationship Specialty Start Date End Date Malika Hernandez MD [address] [place], [place] [id number] PCP - General Family Medicine 09/28/16 Rusty Welch, KEVIN.HURL SHAKER [address] [place] [address] Lead Etl Developer [facility] 01/23/24 Team Status: Active Member Role/Relationship Status Dates Dr. Malkia Hernandez MD Primary Care Provider Active Team Status: Inactive Member Role/Relationship Status Dates Dr. Malika Hernandez MD Primary Care Provider Active Start: September 27, 2024 End: September 27, 2024 Dr. Tommy Saul DO Emergency Provider Active Start: September 27, 2024 End: September 27, 2024 Global Compensation Analyst Relationship Specialty Start Date End Date Malika Hernandez MD [address] [place], [place] [address] PCP - General Family Medicine 09/28/16 Rusty Welch, KEVIN.HURL SHAKER [address] [place], [place] [id number] [facility]24 Reason for Visit (unrecogniz ed section and content) Reason Onset Date Comments Refill Request 09/08/2021 Refill Request 01/28/2022 Reason Comments Appointment Reason Comments Yearly Exam Reason Comments Insurance Authorization Reason Onset Date Comments Physical Immunizations 03/27/2023 Flu vaccination Reason Comments Cough Cough, chest congest ion, chills, fever and bodyaches x 3 days Reason Comments Physical Reason Comments NEW PRIMARY CARE PHARMACY APPT Reason Onset Date Comments Results 09/17/2024 Reason Comments Missed Appointment Primary care resched ule Goals (unrecognized section and content) Goals may be documented in a n alternate section INFORMATION SOURCE (unrecogn ized section and content) DATE CREATED AUTHOR 10/04/2024 [facility] DATE CREATED AUTHOR AUTHOR'S ORGANIZ ATION 10/28/2024 [facility] FOR RECORDS PERTAINING TO PATIENTS WHO ARE OR HAVE BEEN ENROLLED IN A CHEMICAL DEPENDENCY/SUBSTANCEABUSE PROGRAM, SOME INFORMATION MAY BE OMITTED. This clinical summary was aggregated from multiple sources. Caution should be exercised in using it in the provision of clinical care. This summary normalizes information from multiple sources, and as a consequence, information in this document may materially change the coding, format and clinical context of patient data. In addition, data may be omitted in some cases. CLINICAL DECISIONS SHOULD BE BASED ON THE PRIMARY CLINICAL RECORDS. [facility] [email or web address] [facility]. provides no warranty or guarantee of the accuracy or completeness of information in this document.
== END 2024-11-01 17:25 | disposition home or self-care (01) ==
LOC: ED 08:30 → SDC 08:36 → ACINP 08:36 → AC 11:47 → MS3 11:51 → SDC 16:36 → MS3 17:24
PROVIDERS: Admitting Provider Student in an Organized Health Care Education/Training Program; Emergency Provider Emergency Medicine; PCP Family Medicine; Visit Provider Student in an Organized Health Care Education/Training Program
PROC: (CPT 28820; principal; 2024-11-01 10:45)
DX: S98.121A Partial traumatic amputation of right great toe, initial encounter (principal); L97.514 Non-pressure chronic ulcer of other part of right foot with necrosis of bone; E11.621 Type 2 diabetes mellitus with foot ulcer; E11.42 Type 2 diabetes mellitus with diabetic polyneuropathy; Z79.4 Long term (current) use of insulin; E11.65 Type 2 diabetes mellitus with hyperglycemia; I10 Essential (primary) hypertension; Z79.84 Long term (current) use of oral hypoglycemic drugs; Z23 Encounter for immunization; W54.0XXA Bitten by dog, initial encounter; Y93.84 Activity, sleeping; Y92.89 Other specified places as the place of occurrence of the external cause; Z79.899 Other long term (current) drug therapy; F17.210 Nicotine dependence, cigarettes, uncomplicated
CPT/HCPCS: 28820; 01480; 73660; 76000; 80048; 82962; 85025; 87070; 87075; 87077; 87102; 87176; 87184; 87186; 87205; 87206; 88302; 88305; 88311; 90715; 96361; 96365; 96375; 99221; 99284; A4216; G0378; J2405